=== PATIENT | female | born 1990 | race Caucasian/White ===

== ENCOUNTER 2016-08-30 13:41 | Emergency (ER) | payer OTHER ==
[2016-08-30 14:06] VITALS: BP 107/65
--- NOTE | 2016-08-30 17:08 | ED ---
Lower Extremity - HPI Summary HPI Summary: Patient presents with LLE pain and LLQ pain that began several days ago without injury. She has history of blood clot in her LLE s/p knee surgery in November 2015, and was subsequently found to have a blood clotting disorder that has been managed by a specialist at [facility]. Also, her period was late so she took a test three days ago that was positive. She called her specialist regarding this finding and her pain, and was placed on "emergency Lovenox" 95mg BID. She was referred to the ED for evaluation by this specialist. Her pain is in her left groin and thigh, as well as in her LLQ. She feels her left leg is swollen and she is having pain with ambulation and movement. She denies warm, N/T, SOB or CP. Additionally, she is working with her PCP to establish care with a "high risk" specialist to help navigate possible complication with her bleeding disorder and . - History of Current Complaint Hx Obtained From: Patient Hx Last Menstrual Period: 3 wks ago Mechanism Of Injury: Unknown Onset of Pain: Days - 2-3 Onset/Duration: Still Present Severity Initially: Mild Severity Currently: Severe Pain Intensity: 8 Timing: Constant Location: Is Diffuse - LLQ distally to left groin and thigh Character Of Pain: Dull, Aching Associated Signs And Symptoms: Positive: Swelling Aggravating Factor(s): Standing, Movement Alleviating Factor(s): Nothing Able to Bear Weight: Yes <Kushal Falk - Last Filed: 08/31/16 09:15> <Sapphire Ragland - Last Filed: 08/31/16 21:58> - History of Current Complaint Chief Complaint: EDExtremityLower Stated Complaint: LT LEG PAIN/SWELLING=DX W/DVT Time Seen by Provider: 08/30/16 15:02 - Allergies/Home Medications Allergies/Adverse Reactions: Allergies Allergy/AdvReac Type Severity Reaction Status Date / Time Bee Venom Allergy Unknown Unknown Verified 06/27/12 09:47 Reaction Details monitstat Allergy Severe Swelling Uncoded 06/27/12 09:47 PMH/Surg Hx/FS Hx/Imm Hx Endocrine/Hematology History: Denies: Hx Diabetes, Hx Thyroid Disease Cardiovascular History: Denies: Hx Hypertension, Hx Pacemaker/ICD Respiratory History: Reports: Hx Asthma - exercise induced Denies: Hx Chronic Obstructive Pulmonary Disease (COPD) GI History: Denies: Hx Ulcer Musculoskeletal History: Reports: Hx Orthopedic Injury Sensory History: Reports: Hx Contacts or Glasses Denies: Hx Hearing Aid Opthamlomology History: Reports: Hx Contacts or Glasses Psychiatric History: Reports: Hx Anxiety Denies: Hx Panic Disorder - Surgical History Surgery Procedure, Year, and Place: LEFT KNEE arthroscopic surgery; torn ACL repair- LEFT Hx Anesthesia Reactions: No Infectious Disease History: No Infectious Disease History: Denies: Hx Hepatitis, Hx Human Immunodeficiency Virus (HIV), Traveled Outside the [place] in Last 30 Days - Family History Known Family History: Positive: None - Social History Occupation: Employed Full-time Lives: With Family Alcohol Use: Occasionally Substance Use Type: Reports: None Smoking Status (MU): Never Smoked Tobacco <Kushal Falk - Last Filed: 08/31/16 09:15> Review of Systems Negative: Fever Negative: Chest Pain Negative: Shortness Of Breath Positive: Abdominal Pain - LLQ. Negative: Vomiting, Diarrhea, Nausea Positive: Edema - mild LLE. Negative: Arthralgia, Myalgia, Decreased ROM Negative: Weakness, Paresthesia, Numbness All Other Systems Reviewed And Are Negative: Yes <Kushal Falk - Last Filed: 08/31/16 09:15> Physical Exam Triage Information Reviewed: Yes Vital Signs On Initial Exam: Initial Vitals Temp Pulse Resp BP Pulse Ox 98.8 F 80 18 107/65 100 08/30/16 13:59 08/30/16 13:59 08/30/16 13:59 08/30/16 13:59 08/30/16 13:59 Vital Signs Reviewed: Yes Appearance: Positive: Well-Appearing, Pain Distress, Obese Skin: Positive: Warm, Skin Color Reflects Adequate Perfusion, Dry, Soft Head/Face: Positive: Normal Head/Face Inspection Eyes: Positive: EOMI, TIARRA, Conjunctiva Clear ENT: Positive: Hearing grossly normal Neck: Positive: Supple, Nontender, No Lymphadenopathy Respiratory/Lung Sounds: Positive: Clear to Auscultation, Breath Sounds Present Cardiovascular: Positive: RRR Abdomen Description: Positive: Soft. Negative: Nontender - mild LLQ pain to deep palpation, CVA Tenderness (R), CVA Tenderness (L), Distended, Guarding, Hepatomegaly, McBurney's Point Tenderness, Pulsatile Mass, Splenomegaly Bowel Sounds: Positive: Present Musculoskeletal: Positive: Strength/ROM Intact, Edema Left - mild LLE; DP, PT and femoral pulses equal and present bilaterally in RLE and LLE. Negative: Pain @, Miriam Sign Left, Miriam Sign Right, Edema Right Neurological: Positive: Sensory/Motor Intact, Alert, Oriented to Person Place, Time, NV Bundle Intact Distally, Normal Gait Psychiatric: Positive: Affect/Mood Appropriate AVPU Assessment: Alert <Kushal Falk - Last Filed: 08/31/16 09:15> Vital Signs On Initial Exam: Initial Vitals Temp Pulse Resp BP Pulse Ox 98.8 F 80 18 107/65 100 08/30/16 13:59 08/30/16 13:59 08/30/16 13:59 08/30/16 13:59 08/30/16 13:59 <Sapphire Ragland - Last Filed: 08/31/16 21:58> Diagnostics - Vital Signs Vital Signs Temp Pulse Resp BP Pulse Ox 08/30/16 13:59 98.8 F 80 18 107/65 100 - Ultrasound No standard instances Ultrasound Interpretation: No Acute Changes Ultrasound Interpretation Completed By: Radiologist - Transvaginal: negative; Bilateral LE: left positive for DVT; right negative for DVT <Kushal Falk - Last Filed: 08/31/16 09:15> - Vital Signs Vital Signs Temp Pulse Resp BP Pulse Ox 08/30/16 19:19 99.3 F 97 16 08/30/16 13:59 98.8 F 80 18 107/65 100 - Laboratory Lab Results: Lab Results 08/30/16 Range/Units 17:48 Beta HCG, Quant 1334.73 mIU/mL Lab Statement: Any lab studies that have been ordered have been reviewed, and results considered in the medical decision making process. <Sapphire Ragland - Last Filed: 08/31/16 21:58> Lower Extremity Course/Dx - Course Course Of Treatment: I discussed the findings with the patient, and since she is already taking Lovenox under the care of her specialist, she will continue with that treatment plan. She is working with her PCP to establish an appointment with a high risk specialist in [place], therefore she will continue with this plan as well. The results of her studies was provided to be transmitted to each of these providers. The patient will return to the ED if symptom worsen, but otherwise proceed with her current plan. - Diagnoses Differential Diagnosis/HQI/PQRI: Positive: Arthritis, Bursitis, Compartment Syndrome, DVT, Infection, Sprain, Strain <Kushal Falk - Last Filed: 08/31/16 09:15> <Sapphire Ragland - Last Filed: 08/31/16 21:58> - Diagnoses Provider Diagnoses: Left leg DVT, Discharge <Kushal Falk - Last Filed: 08/31/16 09:15> <Sapphire Ragland - Last Filed: 08/31/16 21:58> - Discharge Plan Condition: Stable Disposition: HOME Patient Education Materials: (ED), Leg Edema (ED) Referrals: No Primary Care Phys,NOPCP [Primary Care Provider] - Additional Instructions: Please continue working with Iris Adames and your specialist regarding your blood clot and . Return to the emergency department if your symptoms worsen. Attestations User Type: Provider - I was available for consult. This patient was seen by the advanced practice provider. The patient was not presented to, seen by, or examined by me. <Sapphire Ragland - Last Filed: 08/31/16 21:58>
--- NOTE | 2016-08-30 17:33 | RAD ---
INDICATION: History of DVT, recent surgery, left lower extremity swelling and pain. COMPARISON: There are no prior studies available for comparison. TECHNIQUE: Multiple real-time, color flow and Doppler tracings of both lower extremities were obtained. FINDINGS: The right common femoral, femoral, profunda femoral and popliteal veins all demonstrate normal compressibility, augmentation with compression and phasic response with respiration. The left mid and distal femoral and popliteal veins were only partially compressible. There is intraluminal thrombus present partially occluding the veins. The posterior tibial and peroneal veins demonstrate normal compressibility and augmentation with compression. IMPRESSION: FINDINGS CONSISTENT WITH DEEP VENOUS THROMBOSIS IN THE LEFT LOWER EXTREMITY IN THE MID AND DISTAL FEMORAL AND POPLITEAL VEINS.
--- NOTE | 2016-08-30 17:37 | RAD ---
Indication: and left lower quadrant pain. COMPARISON: There are no prior studies available for comparison. TECHNIQUE: Multiple real-time transvaginal images of the pelvis were obtained. FINDINGS: This exam demonstrates a small saclike structure present within the endometrial cavity in the fundal portion of the uterus. No pole, yolk sac or heartbeat is visualized. The mean sac diameter measured 0.33 cm which would correspond to an estimated gestational age of 4 weeks 6 days. The uterus measured 6.1 x 2.8 x 4.5 cm. The right ovary measured 3.8 x 1.7 x 2.2 cm. The left ovary measured 3.4 x 1.8 x 2.3 cm. There is vascular flow within both ovaries. No free intraperitoneal fluid is seen. IMPRESSION: THERE IS A SMALL SACLIKE STRUCTURE PRESENT WITHIN THE ENDOMETRIAL CAVITY. NO POLE, YOLK SAC OR HEARTBEAT IS VISUALIZED. THIS LIKELY REPRESENTS A EARLY INTRAUTERINE ALTHOUGH AN ECTOPIC OR SPONTANEOUS MISCARRIAGE CANNOT BE EXCLUDED. RECOMMEND CORRELATION WITH QUANTITATIVE BETA HCG AND A FOLLOW-UP TRANSVAGINAL PELVIC ULTRASOUND IN 1-2 WEEKS' TIME.
== END 2016-08-30 19:19 | disposition home or self-care (01) ==
LOC: ED 13:41
DX: R10.32 Left lower quadrant pain (principal); R60.9 Edema, unspecified
CPT/HCPCS: 36415; 76817; 84702; 93970; 99282

== ENCOUNTER 2016-09-10 19:43 | Emergency (ER) | payer OTHER ==
[2016-09-10 20:40] VITALS: BP 120/68
--- NOTE | 2016-09-10 21:30 | UC ---
General HPI - HPI Summary HPI Summary: The patient comes in today for: 1. Fever, body aches, lower back pain, chills, sweats, Onset: 2 days ago. Palliative/provocative: Nothing makes the symptoms better except Tylenol which helps reduce her fever. Quality: Aches. Region: Lower backs, legs and arms. Severity: 7/10 Time: Constant. Associated symptoms: She called her CATALOGUE AND SPECIAL PRODUCTS MANAGER who told her to go to the ER or urgent care for evaluation of possible flu. She did not have the flu vaccine. She has a history of a blood clot in her left leg which was her 2nd clot two weeks ago. She was on Xarelto for the first six months. Then aspirin for 2 months (June and July of this year). Then she went on Lovenox starting in August of this year. She is 6 weeks . * - History of Current Complaint Chief Complaint: UCGeneralIllness Stated Complaint: LEG PAIN,SWELLING,FEVER, 6 WEEKS PREG Time Seen by Provider: 09/10/16 21:21 Hx Obtained From: Patient - Allergy/Home Medications Allergies/Adverse Reactions: Allergies Allergy/AdvReac Type Severity Reaction Status Date / Time Bee Venom Allergy Unknown Unknown Verified 06/27/12 09:47 Reaction Details monitstat Allergy Severe Swelling Uncoded 06/27/12 09:47 Home Medications: Home Medications Acetaminophen [Tylenol] 1,000 mg 09/10/16 [History] Enoxaparin(*) [Lovenox(*)] 95 mg BID 09/10/16 [History Confirmed 09/10/16] PMH/Surg Hx/FS Hx/Imm Hx Previously Healthy: No - 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." Endocrine History Of: Denies: Diabetes, Thyroid Disease, Hyperthyroidism, Hypothyroidism, Dyslipidemia Cardiovascular History Of: Denies: Cardiac Disorders, Hypertension, Pacemaker/ICD, Myocardial Infarction , Congestive Heart Failure, Atrial Fibrillation, Deep Vein Thrombosis, Bleeding Disorders Respiratory History Of: Reports: Asthma - exercise induced Denies: COPD, Bronchitis, Pneumonia, Pulmonary Embolism GI/ History Of: Denies: Gastroesophageal Reflux, Ulcer, Gastrointestinal Bleed, Gall Bladder Disease, Kidney Stones, Diverticulitis, Renal Disease, Urosepsis Neurological History Of: Denies: TIA, CVA, Dementia, Seizures, Migraine Psychological History Of: Reports: Anxiety Denies: Depression, Bipolar Disorder, Schizophrenia, Post Traumatic Stress Disorder Cancer History Of: Denies: Lung Cancer, Colorectal Cancer, Breast Cancer, Prostate Cancer Other History Of: Anticoagulant Therapy Negative For: HIV, Hepatitis B, Hepatitis C - Surgical History Surgical History: Yes Surgery Procedure, Year, and Place: LEFT KNEE arthroscopic surgery; torn ACL repair- LEFT - Family History Known Family History: Positive: Cardiac Disease, Hypertension - Social History Occupation: Unemployed Alcohol Use: Occasionally Substance Use Type: None Smoking Status (MU): Never Smoked Tobacco Review of Systems Constitutional: Fever - Temperature at home 102 last taken at 5:30 PM Skin: Negative Eyes: Negative ENT: Negative Respiratory: Negative, Cough - "a little bit" non-productife. Cardiovascular: Negative Gastrointestinal: Diarrhea - She had 3 water brown stools today with no blood. Genitourinary: Negative Musculoskeletal: Negative, Myalgia All Other Systems Reviewed And Are Negative: Yes Physical Exam Triage Information Reviewed: Yes Appearance: Well-Appearing, No Pain Distress, Well-Nourished Vital Signs: Initial Vital Signs Temp 98.6 F 09/10/16 20:32 Pulse 82 09/10/16 20:32 Resp 18 09/10/16 20:32 BP 120/68 09/10/16 20:32 Pulse Ox 99 09/10/16 20:32 Vital Signs Reviewed: Yes Eyes: Positive: Conjunctiva Clear. Negative: Discharge ENT: Positive: Hearing grossly normal. Negative: Pharyngeal erythema, Nasal congestion, Nasal drainage, TM bulging, TM dull, TM red, Tonsillar swelling, Tonsillar exudate Dental: Negative: Gross Decay/Caries @, Dental Fracture @ Neck: Positive: Supple, Nontender, No Lymphadenopathy. Negative: Nuchal Rigidity Respiratory: Positive: Chest non-tender, Lungs clear, No respiratory distress, No accessory muscle use. Negative: Crackles, Rhonchi Cardiovascular: Positive: RRR, No Murmur Abdomen Description: Positive: Nontender, No Organomegaly, Soft. Negative: Distended, Guarding Musculoskeletal: Positive: Strength Intact, ROM Intact Neurological: Positive: Alert, Muscle Tone Normal Psychological: Positive: Age Appropriate Behavior, Consolable Skin: Negative: rashes, breakdown Diagnostics - Laboratory Diagnostic Studies Completed/Ordered: Urine screen: Specific gravity: 1.025. Influenza testing (-) for A and B. Course/Dx - Course Course Of Treatment: Patient was told that her specific gravity is 1.025 and its significant. She was told that because she does not have nausea at this time and has been successful in taking liquids orally, she was encouraged to drink more to get her urine colorless like water. She agreed. She wanted Diclegis for nausea in the AM. - Differential Dx - Multi-Symptom Provider Diagnoses: Viral syndrome (not influenza). Discharge - Discharge Plan Condition: Stable Disposition: HOME Patient Education Materials: Dehydration (ED), Viral Syndrome (ED), ( ED) Referrals: Iris Adames NP [Primary Care Provider] - 1 Week (Please call your CATALOGUE AND SPECIAL PRODUCTS MANAGER provider or primary care provider tomorrow for a follow up evaluation later this week.)
== END 2016-09-10 22:39 | disposition home or self-care (01) ==
LOC: UCEAST 19:43
DX: O26.891 Other specified pregnancy related conditions, first trimester (principal); B34.9 Viral infection, unspecified; Z3A.01 Less than 8 weeks gestation of pregnancy
CPT/HCPCS: 81003; 87502; 99212; G0463

== ENCOUNTER 2017-05-24 09:00 | Day surgery (SDC) | payer OTHER ==
[~2017-05-24 09:00] MED LIST: Buffered Lidocaine 0.9% SYRIN* 5 ML/SYR SYRINGE INTRADERM ONE; Famotidine IV* 10 MG/ML 2 ML (20 mg) IV ONE
[2017-05-24] MEDS ORDERED: ceFAZolin 2 GM PREMIX (*) 2 GM/50 ML BAG IVPB ONE (09:18)
[2017-05-24] MEDS ORDERED: Famotidine IV* 10 MG/ML 2 ML (20 mg) ONE (09:18)
[2017-05-24] MEDS ORDERED: Buffered Lidocaine 0.9% SYRIN* 5 ML/SYR SYRINGE ONE (09:18)
[2017-05-24 09:54] LABS: Hematocrit 40 % (35-47); Hemoglobin 13.3 g/dl (12.0-16.0); Mean Corpuscular HGB Conc 33 g/dl (31-36); Mean Corpuscular Hemoglobin 29 pg (27-31); Mean Corpuscular Volume 85 fL (80-97); Mean Platelet Volume 8 um3 (7.4-10.4); Red Blood Count 4.66 10^6/ul (4.0-5.4); Red Cell Distribution Width 13 % (10.5-15); White Blood Count 6.5 10^3/ul (3.5-10.8)
[2017-05-24] MEDS ORDERED: fentaNYL* 50 MCG/ML 2 ML VIAL (100 MCG VIAL) ONE (10:03)
[2017-05-24] MEDS ORDERED: Midazolam* 1 MG/ML 2 ML VIAL (2 MG) ONE (10:04)
[2017-05-24] MEDS ORDERED: Chloroprocaine 2%* 20 ML VIAL ONE (11:06)
[2017-05-24] MEDS ORDERED: Ondansetron INJ* 2 MG/ML VIAL IV PRN (11:53)
[2017-05-24] MEDS ORDERED: Acetaminophen TAB* 325 MG PO PRN (11:53)
[2017-05-24] MEDS ORDERED: Acetaminophen IV 1GM/100ML * 1,000 MG/100 ML VIAL IVPB ONE (12:15)
[2017-05-24] MEDS ORDERED: Acetaminophen IV 1GM/100ML * 100 ML ONE (12:20)
[2017-05-24] MEDS ORDERED: oxyCODONE TAB* 5 MG TAB PO PRN (12:43)
[2017-05-24] MEDS ORDERED: oxyCODONE TAB* 5 MG TAB ONE (12:51)
[2017-05-24 14:15] VITALS: BP 98/62
--- NOTE | 2017-05-25 02:20 | OP ---
DATE OF OPERATION: 05/24/17 [facility] DATE OF : 88 SURGEON: Vida Pichardo MD DEPLOYMENT TECHNICIAN: LEIGH ANN Chao ANESTHESIOLOGIST: Dr. Anthony. ANESTHESIA: Spinal. PRE-OP DIAGNOSIS: bleeding with possible retained placenta. POST-OP DIAGNOSIS: bleeding with possible retained placenta. OPERATIVE PROCEDURE: Suction, dilatation and curettage with ultrasound guidance. ESTIMATED BLOOD LOSS: 125 cc. URINE OUTPUT: 200 cc. IV FLUIDS: 700 cc lactated Ringers. MATERIALS TO LAB: Intrauterine contents. INDICATIONS: This patient was a 26-year-old 1, para 1, approximately 1 month status post a vaginal delivery in [facility]. The patient reported an uncomplicated vaginal delivery; however, delivery of the placenta was prolonged at nearly 30 minutes. She reports that the placenta was then successfully removed without manual extraction. However, she did have a significant hemorrhage. She did not require a transfusion. The patient reports that her course has been unremarkable. Her bleeding significantly decreased and she did well with very minimal bleeding over the next 3 weeks. However, about 5 days ago, she began having intermittent moderate bright red bleeding. She discontinued her Lovenox which had been prescribed by her bark press operator. When this did not seem to improve the bleeding, she contacted us for evaluation. On ultrasound in the office, an approximately 2 x 2 cm density was seen in the upper fundus with significant vascularity. Considering these findings, decision was made to proceed with a dilatation and curettage to remove the likely source of the prolonged bleeding. She was extensively counseled and a consent was signed. FINDINGS: Small amount of densely adherent material in the upper uterus. The vast majority of this appeared to be removed with the curettage and this was confirmed on ultrasound. COMPLICATIONS: None. DESCRIPTION OF PROCEDURE: The risks, benefits, and alternatives were described to the patient and informed consent was obtained. The patient was taken to the operating room with IV running where spinal anesthesia was induced and found to be adequate. The patient was prepped and draped in a normal sterile fashion in the high lithotomy position in [facility]. A timeout was performed. The bladder was emptied. An ultrasound was performed then to visualize the fundus. A bivalve speculum was placed in the vagina and a single tooth tenaculum was placed on the anterior cervix. The cervix was then gently dilated using Hanks dilator to a size 30. The uterus was then sounded to about 10 cm. With ultrasound guidance, a size 8 curved suction curette was advanced through the cervix and advanced up to the fundus. Suction was activated and a small amount of dark tissue was removed. This did cause some fairly brisk but brief bleeding. The suction catheter was removed. A curettage with a small Banjo curette was then performed again with ultrasound guidance. There was still some dense tissue visible on ultrasound so the curettage was performed and was able to remove the vast majority of this. The remainder of any adherent tissue was left in place rather than cause additional bleeding or potential perforation of the uterus. Bleeding was light at that time. The tenaculum was removed from the cervix with good hemostasis. The speculum was removed and bimanual massage was applied to the uterus. The uterus was firm and there was only light bleeding at that time. The patient tolerated the procedure well. Sponge, lap and needle counts were correct x2. She was then placed in a supine position and brought to the recovery room. [id number]/[facility] #: [id number] ELISSA
== END 2017-05-24 15:12 | disposition home or self-care (01) ==
LOC: OR 09:00
PROVIDERS: ATTEND Obstetrics & Gynecology
DX: O72.2 Delayed and secondary postpartum hemorrhage (principal); Z79.01 Long term (current) use of anticoagulants; Z86.718 Personal history of other venous thrombosis and embolism; O99.53 Diseases of the respiratory system complicating the puerperium; J45.909 Unspecified asthma, uncomplicated; O99.13 Other diseases of the blood and blood-forming organs and certain disorders involving the immune mechanism complicating the puerperium; D68.52 Prothrombin gene mutation; Z88.8 Allergy status to other drugs, medicaments and biological substances
CPT/HCPCS: 36415; 85027; 86850; 86900; 86901; 88305; A9270-GY; J0690; J2250; J2400; J3010

== ENCOUNTER 2017-12-31 15:44 | Inpatient (IN) | payer OTHER ==
[2017-12-31 16:42] LABS: ABS Basophils 0.1 10^3/ul (0-0.2); ABS Eosinophils 0.2 10^3/ul (0-0.6); ABS Lymphocytes 1.4 10^3/ul (1.0-4.8); ABS Monocytes 0.4 10^3/ul (0-0.8); ABS Neutrophils 4.3 10^3/ul (1.5-7.7); ABS Nucleated RBC 0 10^3/ul; Eosinophil % 2.5 % (0-6); Hematocrit 39 % (35-47); Hemoglobin 13.5 g/dl (12.0-16.0); Lymphocyte % 22.2 % (25-47); Mean Corpuscular HGB Conc 35 g/dl (31-36); Mean Corpuscular Hemoglobin 29 pg (27-31); Mean Corpuscular Volume 83 fL (80-97); Mean Platelet Volume 7.2 um3 (7.4-10.4); Nucleated Red Blood Cells % 0.1; Platelet Count 344 10^3/ul (150-450); Red Blood Count 4.72 10^6/ul (4.00-5.40); Red Cell Distribution Width 13 % (10.5-15); White Blood Count 6.4 10^3/ul (3.5-10.8)
[2017-12-31 16:59] LABS: EGFR Non-African American 87.9 (>60)
--- OUTSIDE RECORDS SUMMARY | 2017-12-31 17:09 | XMS REPORT ---
:1990 External Reference #:[id number] Author Organization [facility] Address [address] [place] [address] Phone [phone] Care Team Providers Name Role Phone Meera Carrera MD Primary Care Physician Unavailable Payers Type Date Identification Numbers Payment Provider Subscriber Commercial Policy Number: [id number] Daniel Coleman Group Number: [id number] [address] PayID: [id number] [place] [address] Medigap Part B Expires: 2016 Policy Number: [id number] Medicaid Maritza Coleman Group Name: 1 1 [address] PayID: [id number] [place] [address] Problems Date Description Provider Status Onset: 07/14/2016 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 Maternal GGM also had breast CA General Cancer maternal GF - bone CA Mother Breast Cancer in her 40s Social History Type Date Description Comments Marital Status Single Lives With Male Partner ETOH Use Occasionally consumes wine Smoking Patient has never smoked Daily Caffeine Does Not Consume Caffeine Exercise Type/Frequency Exercises sporadically Allergies, Adverse Reactions, Alerts Date Description Reaction Status Severity Comments 10/28/2015 Monistat active Moderate to Severe burning swelling itching pain 10/28/2015 abreva active pain swelling, stinging 10/28/2015 Bee Sting active Severe Medications Medication Date Status Form Strength Qnty SIG Indications Ordering Provider Dicloxacillin 12/10/ Active Capsules 500mg 28caps 1 po qid O91.23 Meera Sodium 2018 for 1 haresh Carrera M.D. PNV-Dha 07/23/ Active Capsules 27-0.6-0.4 30caps One Christopher 2018 -300mg capsule PRICILLA Lafleur daily([facility] [address] 07-17) Denavir 07/11/ Active Cream 1% 5gm apply Christopher 2017 three PRICILLA Lafleur times daily as needed Epipen 2-Surinder 10/27/ Active Solution 0.3mg/0.3M 1units use as Christopher 2015 Auto-Injec L directed PRICILLA Lafleur t Aspirin Ec / Active Tablets DR 81mg 1 by Unknown 0000 mouth every day One 07/11/ Hx Tablets 30tabs once a Christopher Daily 2018 - day PRICILLA Lafleur 2017 Denavir 02/28/ Hx Cream 1% 5gm apply Iris 2016 - three Varn, N.P. 02/28/ times 2016 daily as needed Valtrex 02/28/ Hx Tablets 1gm 14tabs 2 by Christopher 2016 - mouth and PRICILLA Lafleur 12/09/ repeat in 2018 12 hours Triamcinolone 07/14/ Hx Lotion 0.1% 60ml apply to R21 Christopher Acetonide 2017 - dry skin PRICILLA Lafleur 12/09/ once or 2018 twice daily Azithromycin 03/30/ Hx Tablets 250mg 6tabs two tabs Iris 2015 - day one, Varn, N.P. 04/09/ one daily 2016 till gone Valacyclovir 03/24/ Hx Tablets 1gm 12tabs take two Christopher HCL 2015 - tablets PRICILLA Lafleur 03/28/ by mouth 2015 twice daily x 1 day Kariva 10/27/ Hx Tablets 0.15-0.02/ 28tabs once Christopher 2016 - 0.01 mg daily PRICILLA Lafleur 03/28/ (05/11) 2015 Ibuprofen 10/27/ Hx Tablets 600mg 90tabs by mouth Christopher 2015 - three PRICILLA Lafleur 03/28/ times a 2016 day as needed with food Denavir 10/27/ Hx Cream 1% 5gm apply Christopher 2015 - three PRICILLA Lafleur 03/28/ times 2015 daily as needed Ambien / Hx Tablets 5mg one by Unknown 0000 - mouth at 07/14/ bedtime 2017 as needed Xanax / Hx Tablets 0.5mg 1-2 tabs Unknown 0000 - by mouth 2015 times a day as needed Lidoderm / Hx Patches 5% use as Unknown 0000 - needed on 2016 area. on for 12 hours then off for 12 hours. Percocet / Hx Tablets 7.5-325mg 1-2 by Unknown 0000 - mouth 2015 hours as needed pain Xarelto / Hx Tablets 15mg 1 by Unknown 0000 - mouth 2016 Vital Signs Date Vital Result Comment 12/10/2017 Height 68 inches 5'8" Weight 190.00 lb Heart Rate 70 /min BP Systolic Sitting 106 mmHg BP Diastolic Sitting 73 mmHg Body Temperature 97.7 F O2 % BldC Oximetry 98 % BMI (Body Mass Index) 28.9 kg/m2 07/11/2017 Weight 190.00 lb Heart Rate 77 /min BP Systolic 104 mmHg BP Diastolic 66 mmHg Body Temperature 98.3 F O2 % BldC Oximetry 98 % 07/14/2016 Height 66.75 inches 5'6.75" Weight 208.00 lb Heart Rate 82 /min BP Systolic 100 mmHg BP Diastolic 72 mmHg Body Temperature 98.0 F O2 % BldC Oximetry 98 % BMI (Body Mass Index) 32.8 kg/m2 03/28/2016 Height 66.75 inches 5'6.75" Weight 198.00 lb Heart Rate 89 /min BP Systolic 111 mmHg BP Diastolic 73 mmHg Body Temperature 97.8 F O2 % BldC Oximetry 97 % BMI (Body Mass Index) 31.2 kg/m2 10/28/2015 Height 66.75 inches 5'6.75" Weight 191.75 lb Heart Rate 89 /min BP Systolic Sitting 106 mmHg BP Diastolic Sitting 71 mmHg Body Temperature 98.9 F O2 % BldC Oximetry 98 % BMI (Body Mass Index) 30.3 kg/m2 Results Test Date Test Result H/L Range Note Comp Metabolic Panel 07/13/2017 Sodium 138 mmol/L 133-145 Potassium 4.1 mmol/L 3.5-5.0 Chloride 104 mmol/L 101-111 Co2 Carbon Dioxide 28 mmol/L 22-32 Anion Gap 6 mmol/L 2-11 Glucose 99 mg/dL 70-100 Blood Urea Nitrogen 13 mg/dL 6-24 Creatinine 0.78 mg/dL 0.51-0.95 BUN/Creatinine Ratio 16.7 8-20 Calcium 9.7 mg/dL 8.6-10.3 Total Protein 6.9 g/dL 6.4-8.9 Albumin 4.5 g/dL 3.2-5.2 Globulin 2.4 g/dL 2-4 Albumin/Globulin Ratio 1.9 1-3 Total Bilirubin 0.80 mg/dL 0.2-1.0 Alkaline Phosphatase 63 U/L 34-104 Alt 13 U/L 7-52 Ast 13 U/L 13-39 Egfr Non- 87.9 >60 Egfr 113.1 >60 1 Laboratory test finding 07/13/2017 TSH (Thyroid Stim Horm) 1.96 mcIU/mL 0.34-5.60 Vitamin B12 309 pg/mL 180-914 2 Vitamin D Total 25(Oh) 30.4 ng/mL 20-50 CBC Auto Diff 07/13/2017 White Blood Count 5.7 10^3/uL 3.5-10.8 Red Blood Count 4.62 10^6/uL 4.0-5.4 Hemoglobin 13.2 g/dL 12.0-16.0 Hematocrit 39 % 35-47 Mean Corpuscular Volume 84 fL 80-97 Mean Corpuscular Hemoglobin 29 pg 27-31 Mean Corpuscular HGB Conc 34 g/dL 31-36 Red Cell Distribution Width 13 % 10.5-15 Platelet Count 318 10^3/uL 150-450 Mean Platelet Volume 8 um3 7.4-10.4 Abs Neutrophils 3.5 10^3/uL 1.5-7.7 Abs Lymphocytes 1.5 10^3/uL 1.0-4.8 Abs Monocytes 0.5 10^3/uL 0-0.8 Abs Eosinophils 0.2 10^3/uL 0-0.6 Abs Basophils 0 10^3/uL 0-0.2 Abs Nucleated RBC 0 10^3/uL Granulocyte % 60.6 % 38-83 Lymphocyte % 27.1 % 25-47 Monocyte % 8.1 % 1-9 Eosinophil % 3.3 % 0-6 Basophil % 0.9 % 0-2 Nucleated Red Blood Cells % 0 CBC No Diff 05/24/2017 White Blood Count 6.5 10^3/uL 3.5-10.8 Red Blood Count 4.66 10^6/uL 4.0-5.4 Hemoglobin 13.3 g/dL 12.0-16.0 Hematocrit 40 % 35-47 Mean Corpuscular Volume 85 fL 80-97 Mean Corpuscular Hemoglobin 29 pg 27-31 Mean Corpuscular HGB Conc 33 g/dL 31-36 Red Cell Distribution Width 13 % 10.5-15 Platelet Count 259 10^3/uL 150-450 Mean Platelet Volume 8 um3 7.4-10.4 Type & Screen 05/24/2017 Patient Blood Type A Positive Antibody Screen NEGATIVE Laboratory test finding 09/20/2016 Zika Screen [place], Urine SEE RESULT BELOW 3 Zika Screen [place], Serum SEE RESULT BELOW 4 Poc Urinalysis 09/10/2016 Poc Glucose, Urine Negative Negative Poc Bilirubin, Urine Negative Negative Poc Ketone, Urine Negative Negative Poc Specific [place], Urine >=1.030 1.010-1.030 Poc Blood, Urine Negative Negative Poc pH, Urine 5.5 5-9 Poc Protein, Urine Negative Negative Poc Urobilinogen, Urine 0.2 Negative Poc Nitrite, Urine Negative Negative Poc Leukocytes, Urine Negative Negative Poc Color, Urine Yellow Poc Clarity, Urine Clear 5 Poc Urinalysis 09/10/2016 Poc Glucose, Urine Negative Negative Poc Bilirubin, Urine Negative Negative Poc Ketone, Urine Negative Negative Poc Specific [place], Urine 1.025 1.010-1.030 Poc Blood, Urine Negative Negative Poc pH, Urine 5.5 5-9 Poc Protein, Urine Negative Negative Poc Urobilinogen, Urine 0.2 Negative Poc Nitrite, Urine Negative Negative Poc Leukocytes, Urine Negative Negative Poc Color, Urine Yellow Poc Clarity, Urine Clear 6 Laboratory test finding 03/28/2016 Culture Throat SEE RESULT BELOW 7 1 Because ethnic data is not always readily available, this report includes an eGFR for both -Americans and non- Americans. The National Kidney Disease Education Program (NKDEP) does not endorse the use of the MDRD equation for patients that are not between the ages of 18 and 70, are , have extremes of body size, muscle mass, or nutritional status, or are non- or non-. According to the National Kidney Foundation, irrespective of diagnosis, the stage of the disease is based on the level of kidney function: Stage Description GFR(mL/min/1.73 m(2)) 1 Kidney damage with normal or decreased GFR 90 2 Kidney damage with mild decrease in GFR 60-89 3 Moderate decrease in GFR 30-59 4 Severe decrease in GFR 15-29 5 Kidney failure <15 (or dialysis) 2 Normal Range 180 to 914 Indeterminate Range 145 to 180 Deficient Range <145 3 SEE RESULT BELOW Name: KEITH,MARITZA : [address]: Naye Romeo NP Acct: [id number] Unit: [id number] AGE: 26 Location: LAB Re09/20/16 SEX: F Status: REG REF SPEC: [id number] RACHEL: 09/20/16-1010 [facility] DR: Naye Romeo NP REQ: [id number] RECD: 09/20/162 STATUS: PAM OBREG[facility] DR: Iris Adames NP _ SOURCE: URINE SPDESC: ORDERED: Zika Screen, Ur QUERIES: Has the Health Department been contacted for approval? Y Procedure Result Reported Site Zika Screen INES, Urine Final 09/29/16- 1121 ML Zika virus RNA by real-time RT-PCR*: Not Detected Test Performed by: [address] [address] * ML - MAIN LAB ([facility]) . END OF REPORT * ML=Testing performed at Main Lab DEPARTMENT OF PATHOLOGY, [address] [place] [address] Chacho Bland M.D. Director [facility] # [id number] 4 SEE RESULT BELOW Name: MARITZA COLEMAN : [address]: Naye Romeo NP Acct: [id number] Unit: [id number] AGE: 26 Location: LAB Re09/20/16 SEX: F Status: REG REF SPEC: [id number] RACHEL: 09/20/16-1010 [facility] DR: Naye Romeo NP REQ: [id number] RECD: 09/20/16-1022 STATUS: [facility] DR: Iris Adames DIRECTOR OF RECRUITMENT _ SOURCE: SERUM SPDESC: ORDERED: Zika Screen, S QUERIES: Has the Health Department been contacted for approval? Y Procedure Result Reported Site Zika Screen [facility], Serum Final 09/29/16- 1120 ML Zika IgM ROGER Zika IgM ROGER No serologic evidence of recent Zika virus infection detected. If this specimen was collected < 8 days after symptom onset or < 3 weeks after exposure, negative results should be confirmed by collecting another specimen in 3 weeks. If the specimen was collected > 8 days after symptom onset or > 3 weeks after exposure, negative results suggest the absence of current or recent infection. [id number] collected 09/20/16: Negative The Zika virus ROGER performance characteristics were determined by the CDC and the [facility]. These test results must not be the sole basis for diagnosis, treatment or assessing a patient s health. Please see additional important information about zika virus at: Fact Sheet for Health Care Providers:Interpreting Zika MAC-ROGER Results http://www.cdc.gov/zika/pdfs/aysm-njc-ebeoo-pmkd-ltkwg-qnu-h cp.pdf Fact Sheet for Patients:Understanding Results from the Zika MAC ROGER http://www.cdc.gov/zika/pdfs/qnee-ico-yqmsz-kyzy-iyqgy-cfp-p atients.pdf Fact Sheet for Women:Understanding Results from the CONTINUED ON NEXT PAGE * ML=Testing performed at Main Lab DEPARTMENT OF PATHOLOGY, [address] [place] [address] Chacho Bland M.D. Director [facility] # [id number] Patient: MARITZA COLEMAN [id number] (Continued) Specimen: [id number] Collected: 09/20/16-1009 Received: 09/20/16-1021 (Continued) Procedure Result Reported Site Zika Screen INES, Serum Final (continued) 09/29/16- 1120 Zika MAC-ROGER http://www.cdc.gov/zika/pdfs/uuva-nrn-adiag- cfmn-dweum-jnh--women.pdf Microsphere Immunofluorescence Assay* Results suggest the absence of flavivrus antibodies. If this specimen was collected <8 days after symptom onset or <3 weeks after exposure, negative results should be confirmed by collecting another specimen in 3 weeks. West Nile E Polyvalent Microsphere Immunofluorescence Assay [id number] collected 09/20/16 Result: Nonreactive Test Performed by: [place] [address] * ML - MAIN LAB ([facility]) . END OF REPORT * ML=Testing performed at Main Lab DEPARTMENT OF PATHOLOGY, [address] [place] [address] Chacho Bland M.D. Director [facility] # [id number] 5 Maintenance Job Titles: [id number] ALISON EAGLE 6 Maintenance Job Titles: [id number] CHANCE MEDEROS 7 SEE RESULT BELOW Name: MARITZA COLEMAN DOB: [address]: Iris Adames NP Acct: [id number] Unit: [id number] AGE: 25 Location: [facility] Re03/28/16 SEX: F Status: REG REF SPEC: [id number] RACHEL: 03/28/[address]: Iris Adames NP REQ: [id number] RECD: 03/28/16 STATUS: COMP _ SOURCE: THROAT SPDESC: ORDERED: Throat Culture Procedure Result Reported Site Throat Culture Final 03/30/16- 1213 ML Organism 1 NORMAL JENNIFER Quantity 3+ Throat cultures are clinically indicated to detect the presence of group A strep, arcanobacterium and yeast. In certain cases, predominating organisms will be reported. * ML - MAIN LAB ([facility]) . END OF REPORT * ML=Testing performed at Main Lab DEPARTMENT OF PATHOLOGY, [address] [place] [address] Chacho Bland M.D. Director [facility] # [id number] Procedures Description No Information Encounters Type Date Location Provider CPT E/M Dx Office Visit 07/11/2017 11:40a [facility] [place] [address] R21 Alethea R53.83 O72.2 F41.9 Office Visit 07/14/2016 1:00p [facility] Internal Medicine - Iris Adames N.PRober 24531 R21 Alethea M79.674 Office Visit 03/28/2016 11:40a [facility] Internal Medicine Iris Adames, N.P. [address]396 J06.9 - Alethea J02.9 Office Visit 10/28/2015 1:00p [facility] [place] [address] Z91.030 [place] B00.1 Plan of Care 12/10/2017 - Meera Carrear M.D.O91.23 Nonpurulent mastitis associated with lactationNew Medication:Dicloxacillin Sodium 500 mgNew Xrays:US Breast Complete LeftComments:If symptoms get worse again, start the antibiotic
--- OUTSIDE RECORDS SUMMARY | 2017-12-31 17:09 | XMS REPORT ---
:1990 External Reference #:[id number] Author Organization [employer] Address [address] [place] [address] Phone [phone] Care Team Providers Name Role Phone Meera Carrera MD Primary Care Physician Unavailable Payers Type Date Identification Numbers Payment Provider Subscriber Commercial Policy Number: [id number] [place] Maritza Coleman Group Number: [id number] [address] PayID: [id number] [place] [address] Commercial Policy Number: [id number] [employer] Maritza Coleman PayID: [id number] [address] [place] [address] [facility] Part B Expires: 2016 Policy Number: [id number] Medicaid Maritza Coleman Group Name: 1 1 [address] PayID: [id number] [place] [address] Problems Date Description Provider Status Onset: 07/14/2016 Hereditary coagulation factor deficiency Iris Adames N.Leesa. Active Family History Date Family Member(s) Problem(s) [...] Form Strength Qnty SIG Indications Ordering Provider Doxycycline 12/25/ Active Tablets DR 100mg 28tabs 1 po bid A69.20 Iris Hyclate 2017 x 14 days Varn, N.P. Dicloxacillin 12/10/ Active Capsules 500mg 28caps 1 po qid O91.23 Meera Sodium 2018 for 1 Cotton, week M.D. PNV-Dha 07/23/ Active Capsules 27-0.6-0.4 30caps One Christopher 2018 -300mg capsule PRICILLA Lafleur daily([facility] [address] 07-17) Denavir 07/11/ Active Cream 1% 5gm [...] Hx Tablets 1gm 14tabs 2 by Christopher 2017 - mouth and PRICILLA Lafleur 12/09/ repeat in 2018 12 hours Triamcinolone 07/14/ Hx Lotion 0.1% 60ml apply to R21 Christopher Acetonide 2017 - dry skin PRICILLA Lafleur 12/09/ once or 2018 twice daily Azithromycin 03/30/ Hx Tablets 250mg 6tabs two tabs Iris 2015 - day one, Varn, N.P. 04/09/ one daily 2015 till gone Valacyclovir 03/24/ Hx Tablets 1gm 12tabs take two Christopher HCL 2015 - tablets PRICILLA Lafleur 03/28/ by mouth 2015 twice daily x 1 day Kariva 10/27/ Hx Tablets 0.15-0.02/ 28tabs once Christopher 2015 - 0.01 mg daily PRICILLA Lafleur 03/28/ (21/) 2015 Ibuprofen 10/27/ Hx Tablets 600mg 90tabs by mouth Christopher 2015 - three PRICILLA Lafleur 03/28/ times a 2016 day as needed with food Denavir 05/12/ Hx Cream 1% 5gm apply Christopher 2015 - three PRICILLA Lafleur 2015 daily as needed Ambien 0000/ Hx Tablets 5mg one by Unknown 0000 - mouth at bedtime 2016 as needed Xanax 00/ Hx Tablets 0.5mg 1-2 tabs Unknown 0000 - by mouth 2016 times a day as needed Lidoderm / Hx Patches 5% use as Unknown 0000 - needed on 2015 area. on for 12 hours then off for 12 hours. Percocet 00/ Hx Tablets 7.5-325mg 1-2 by Unknown 0000 - mouth every 6 2015 hours as needed pain Xarelto / Hx Tablets 15mg 1 by Unknown 0000 - mouth every day 2016 Vital Signs Date Vital Result Comment 12/25/2017 Height 68 inches 5'8" Weight 195.00 lb Heart Rate 77 /min BP Systolic 120 mmHg BP Diastolic 77 mmHg Body Temperature 97.7 F O2 % BldC Oximetry 98 % BMI (Body Mass Index) 29.6 kg/m2 12/10/2017 Height 68 inches 5'8" Weight 190.00 [...] Test Date Test Result H/L Range Note Wound Culture/Sensi 12/10/2017 Wound/Misc SEE RESULT BELOW 1 Culture-Gram Stain Comp Metabolic Panel 07/13/2017 Sodium 138 mmol/L [...] Egfr Non- 87.9 >60 Egfr 113.1 >60 2 Laboratory test finding 07/13/2017 TSH (Thyroid Stim Horm) 1.96 mcIU/mL 0.34-5.60 Vitamin B12 309 pg/mL 180-914 3 Vitamin D Total 25(Oh) 30.4 ng/mL 20-50 [...] Zika Screen Nysdoh, Urine SEE RESULT BELOW 4 Zika Screen Nysdoh, Serum SEE RESULT BELOW 5 Poc Urinalysis 09/10/2016 Poc Glucose, Urine Negative Negative Poc Bilirubin, Urine Negative Negative Poc Ketone, Urine Negative Negative Poc Specific [place], Urine >=1.030 1.010-1.030 Poc Blood, Urine Negative Negative Poc pH, Urine 5.5 5-9 Poc Protein, Urine Negative Negative Poc Urobilinogen, Urine 0.2 Negative Poc Nitrite, Urine Negative Negative Poc Leukocytes, Urine Negative Negative Poc Color, Urine Yellow Poc Clarity, Urine Clear 6 Poc Urinalysis 09/10/2016 Poc Glucose, Urine Negative Negative Poc Bilirubin, Urine Negative Negative Poc Ketone, Urine Negative Negative Poc Specific [place], Urine 1.025 1.010-1.030 Poc Blood, Urine Negative Negative Poc pH, Urine 5.5 5-9 Poc Protein, Urine Negative Negative Poc Urobilinogen, Urine 0.2 Negative Poc Nitrite, Urine Negative Negative Poc Leukocytes, Urine Negative Negative Poc Color, Urine Yellow Poc Clarity, Urine Clear 7 Laboratory test finding 03/28/2016 Culture Throat SEE RESULT BELOW 8 1 SEE RESULT BELOW Name: MARITZA COLEMAN : [address]: Meera Carrera MD Acct: [id number] Unit: [id number] AGE: 27 Location: [facility] Re12/10/17 SEX: F Status: REG REF SPEC: [id number] RACHEL: 12/10/17-[address]: Meera Carrera MD REQ: [id number] RECD: 12/10/17 STATUS: COMP _ SOURCE: BREAST,LEF SPDESC: ORDERED: Culture Stain COMMENTS: [id number] Procedure Result Reported Site Wound/Misc Gram Stain Final 12/11/17- 821 ML 2+ Neutrophils No Organisms Seen Wound/Misc Culture Final 12/12/17- 59 ML Organism 1 NORMAL JENNIFER Quantity 1+ * ML - Main Lab . END OF REPORT DEPARTMENT OF PATHOLOGY, [address] [place] [address] Chacho Bland M.D. Director [facility] # [id number] 2 Because ethnic data is not always readily [...] 15-29 5 Kidney failure <15 (or dialysis) 3 Normal Range 180 to 914 Indeterminate Range 145 to 180 Deficient Range <145 4 SEE RESULT BELOW Name: MARITZA COLEMAN : [address]: Naye Romeo NP Acct: [id number] Unit: [id number] AGE: 26 Location: LAB Re09/20/16 SEX: F Status: REG REF SPEC: [id number] RACHEL: 09/20/16-[address]: Naye Romeo NP REQ: [id number] RECD: 09/20/16-1022 STATUS: COMP MARICHUY DR: rIis Adames MEDICAL REVIEW SPECIALIST _ SOURCE: URINE SPDESC: ORDERED: Zika Screen, Ur QUERIES: Has the Health Department been contacted for approval? Y Procedure Result Reported Site Zika Screen INES, Urine Final 09/29/16- 1121 ML Zika virus RNA by real-time RT-PCR*: Not Detected Test Performed by: [address] [address] * ML - MAIN LAB ([facility]) . END OF REPORT * ML=Testing performed at Main Lab DEPARTMENT OF PATHOLOGY, [address] [place] [address] Chacho Bland M.D. Director [facility] # [id number] 5 SEE RESULT BELOW Name: KEITHMARITZA GONSALES : [address]: Naye Romeo NP Acct: [id number] Unit: [id number] AGE: 26 Location: LAB Re09/20/16 SEX: F Status: REG REF SPEC: [id number] RACHEL: 09/20/16-[address]: Naye Romeo NP REQ: [id number] RECD: 09/20/16-2 STATUS: PAM OBREGON DR: Iris Adames NP _ SOURCE: SERUM SPDESC: ORDERED: Zika Screen, S QUERIES: Has the Health Department been contacted for approval? Y Procedure Result Reported Site Zika Screen INES, Serum Final 09/29/16- 1120 ML Zika IgM [...] the absence of current or recent infection. [id number] collected 09/20/16: Negative The Zika virus ROGER performance characteristics were determined by the CDC and the [facility]. These test results must not be the sole basis for diagnosis, treatment or assessing a patient s health. Please see additional important information about zika virus at: Fact Sheet for Health Care Providers:Interpreting Zika MAC-ROGER Results http://www.cdc.gov/zika/pdfs/fkgn-vwl-nqerd-recj-xszhd-rfw-h cp.pdf Fact Sheet for Patients:Understanding Results from the Zika MAC ROGER http://www.cdc.gov/zika/pdfs/gdnf-hax-cihch-znar-cjcbu-lkv-p atients.pdf Fact Sheet for Women:Understanding Results from the CONTINUED ON NEXT PAGE * ML=Testing performed at Main Lab DEPARTMENT OF PATHOLOGY, [address] [place] [address] Chacho Bland M.D. Director [facility] # [id number] Patient: MARITZA COLEMAN [id number] (Continued) Specimen: [id number] Collected: 09/20/16-1009 Received: 09/20/16 (Continued) Procedure Result Reported Site Zika Screen INES, Serum Final (continued) 09/29/16- 1120 Zika MAC-ROGER http://www.cdc.gov/zika/pdfs/zdei-vcj-lvyjj- eeuz-sjivx-sfd--women.pdf Microsphere Immunofluorescence Assay* Results suggest the absence of flavivrus antibodies. If this specimen was collected <8 days after symptom onset or <3 weeks after exposure, negative results should be confirmed by collecting another specimen in 3 weeks. West Nile E Polyvalent Microsphere Immunofluorescence Assay [id number] collected 09/20/16 Result: Nonreactive Test Performed by: [address] [address] * ML - MAIN LAB ([facility]) . END OF REPORT * ML=Testing performed at Main Lab DEPARTMENT OF PATHOLOGY, [address] [place] [address] Chacho Bland M.D. Director [facility] # [id number] 6 Aircraft Inspector: [id number] ALISON EAGLE 7 Aircraft Inspector: [id number] CHANCE MEDEROS 8 SEE RESULT BELOW Name: MARITZA COLEMAN : [address]: Iris Adames NP Acct: [id number] Unit: [id number] AGE: 25 Location: [facility] Re03/28/16 SEX: F Status: REG REF SPEC: [id number] RACHEL: 03/28/16-[address]: Iris Adames NP REQ: [id number] RECD: 03/28/16 STATUS: COMP _ SOURCE: THROAT SPDESC: ORDERED: Throat Culture Procedure Result Reported Site Throat Culture Final 03/30/16- 1213 ML Organism 1 NORMAL JENNIFER Quantity 3+ Throat cultures are clinically indicated to detect the presence of group A strep, arcanobacterium and yeast. In certain cases, predominating organisms will be reported. * ML - MAIN LAB ([facility]) . END OF REPORT * ML=Testing performed at Main Lab DEPARTMENT OF PATHOLOGY, [address] [place] [address] Chacho Bland M.D. Director [facility] # [id number] Procedures Description No Information Encounters Type Date Location Provider [facility] E/M Dx Office Visit 12/10/2017 [facility] Internal Medicine Meera Carrera, [address] O91.23 9:40a - Alethea Aguilar Office Visit 07/11/2017 [facility] [place] [address] R21 11:40a - Alethae R53.83 O72.2 F41.9 Office Visit 07/14/2016 1:00p [facility] Internal Medicine - Iris Adames, N.P. [address]998 R21 Alethea M79.674 Office Visit 03/28/2016 11:40a [facility] Medicine Iris Adames, N.P. [address] J06.9 - Alethea J02.9 Office Visit 10/28/2015 1:00p [facility] [place] [address] Z91.030 Alethea B00.1 Plan of Care 12/25/2017 - Iris Adames, N.P.A69.20 Lyme disease, unspecifiedNew Medication: Doxycycline Hyclate 100 mgComments:You have Lyme Disease. I have sent a prescription to the pharmacy for an antibiotic, Doxycycline 100mg. Take 1 tablet , twice daily, for 14 days. This should clear your infection. Do not take this withdairy products. It is important to stay out of the sun, as you may burn more easily while on this.Ifyour symptoms progress instead of improving, please give the office a call.
--- NOTE | 2017-12-31 19:25 | ED ---
Complex/Multi-Sys Presentation - HPI Summary HPI Summary: This patient is a 27 year old F presenting to ED with chief complaint inability to flex her hands and visual symptoms with turning her head, after recent initiation of amoxicillin for presumptive treatment of Lyme disease after recent "bullseye" erythema migrans rash. The patient states the recent hx started with episodes of possible mastitis that were not treataed with antibiotics. She saw her PCP, [facility], on 12/06/17 because she had L anterior CP and a lump on her left breast. She "nursed it out" on 12/07/17 On the 12/09/17 she had another lump and on the 12/10/17 she was seen at [facility]. On the 12/11/17 she "nursed the lump out". She had an US done of her left breast and it was normal. She was not placed on antibioitics. On 12/19/17 or 12/20/17, an oblong bump on her R anterior thigh came up. She thought it was a "bug bite", although she never saw a definite tick. Her back, arms, and legs started to have pain as time went on. She reports the bug bite lump gets bigger almost an inch every day. Then on the 12/25/17, she was seen and the area on her right thigh showed a red center with red and white rings going outwards from the center. She was seen by [facility] and advised that this was a "bullseye rash", erythema migrans, and she was started on doxycycline presumptively for Lyme disease. She did not take the doxycycline due to concern because she was nursing, so she was prescribed Amoxicillin 500mg tid which she started on . Pt complains that the back of her neck, her upper and lower back and hands bilaterally are painful and her fingers are slightly swollen. She is unable to close her fists, not due to pain, but she just cannot close them voluntarily. She also has black dots in her field of vision with dizziness if she turns head head too far to the side both ways. She has tightness and pain in her bilateral rib regions when she inhales. She reports that she feels weird overall and has tingling sensations. Patient denies fever and SOB. The patient rates the pain 9/ 10 in severity. Symptoms aggravated by nothing. Symptoms alleviated by nothing. With the hand weakness and the visual symptoms, pt was advised by [facility]ames' s office to come to the ED for further evaluation of possible "Lyme meningitis" . Pt has an 8 month old daughter that she is nursing, and she has difficulty holding her infant because of her hand pain and weakness. Pt has no headache, no fever. Home Medications Medication Instructions Recorded Confirmed Type Amoxicillin PO (*) [Amoxicillin 500 mg PO TID 12/31/17 12/31/17 History 500 MG CAP*] Aspirin EC TAB* [Ecotrin EC Low 81 mg PO DAILY 12/31/17 12/31/17 History Dose 81 MG*] EPINEPHrine SYR* [EPINEPHphrine 0.1 mg IM ONCE PRN 12/31/17 12/31/17 History SYR*] Vitamin TAB* 1 tab PO DAILY 12/31/17 12/31/17 History - History Of Current Complaint Chief Complaint: EDGeneral Time Seen by Provider: 12/31/17 18:53 Hx Obtained From: Patient Onset/Duration: Sudden Onset, Lasting Weeks - started on 12/19 or 12/20/17, Still Present Timing: Constant Severity Currently: Severe - 9/10 Severity Initially: Severe - 9/10 Character: Throbbing Aggravating Factor(s): nothing Alleviating Factor(s): nothing Associated Signs And Symptoms: Positive: Dizziness, Other - Her back, arms, and legs started to have pain as time went on. Bullseye rash right ant thigh starting 12/20/17, dx erythema migrans 12/25/17. The back of her neck, her upper and lower back and hands bilaterally are painful and her fingers are slightly swollen. She is unable to close her fists, not due to pain, but she just cannot close them voluntarily. She also has black dots in her field of vision with dizziness if she turns head head too much both ways. She has tightness and pain in her bilateral rib regions when she inhales. She reports that she feels weird overall and has tingling sensations. Patient denies fever and SOB. - Allergies/Home Medications Allergies/Adverse Reactions: Allergies Allergy/AdvReac Type Severity Reaction Status Date / Time bee venom protein (honey bee) Allergy Anaphylatic Verified 12/31/17 18:42 Shock docosanol [From Abreva] Allergy Swelling Verified 12/31/17 18:42 tioconazole Allergy Swelling Verified 12/31/17 18:42 [From Monistat 1 (tioconazole)] Home Medications: Home Medications Aspirin EC TAB* [Ecotrin EC Low Dose 81 MG*] 81 mg PO DAILY 12/31/17 [History Confirmed 12/31/17] EPINEPHrine SYR* [EPINEPHphrine SYR*] 0.1 mg IM ONCE PRN 12/31/17 [History Confirmed 12/31/17] Vitamin TAB* 1 tab PO DAILY 12/31/17 [History Confirmed 12/31/17] PMH/Surg Hx/FS Hx/Imm Hx Previously Healthy: No - 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 Endocrine/Hematology History: Reports: Hx Anticoagulant Therapy - not currently 12/2017 Denies: Hx Diabetes, Hx Thyroid Disease Cardiovascular History: 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 Denies: Hx Congestive Heart Failure, Hx Hypertension, Hx Myocardial Infarction, Hx Pacemaker/ICD Respiratory History: Reports: Hx Asthma - exercise induced Denies: Hx Chronic Obstructive Pulmonary Disease (COPD), Hx Lung Cancer, Hx Pneumonia, Hx Pulmonary Embolism GI History: Denies: Hx Gall Bladder Disease, Hx Gastrointestinal Bleed, Hx Ulcer, Hx Urosepsis History: Denies: Hx Kidney Stones, Hx Renal Disease Sensory History: Reports: Hx Contacts or Glasses - both- will wear glasses day of surgery Denies: Hx Hearing Aid Opthamlomology History: Reports: Hx Contacts or Glasses - both- will wear glasses day of surgery Neurological History: Denies: Hx Dementia, Hx Migraine, Hx Seizures, Hx Transient Ischemic Attacks (TIA) Psychiatric History: Reports: Hx Anxiety - post Denies: Hx Depression, Hx Panic Disorder, Hx Schizophrenia, Hx Bipolar Disorder - Cancer History Hx Chemotherapy: No - Surgical History Surgery Procedure, Year, and Place: LEFT KNEE arthroscopic surgery; torn ACL repair- LEFT x6 Hx Anesthesia Reactions: No - Immunization History Immunizations Up to Date: Yes Infectious Disease History: No Infectious Disease History: Denies: Hx Hepatitis, Hx Human Immunodeficiency Virus (HIV), Traveled Outside the [place] in Last 30 Days - Family History Known Family History: Positive: Cardiac Disease, Hypertension, Other - father with exposure to Agent [place] and neurologic deficits Family History: breast CA - Social History Occupation: Employed Full-time Lives: With Family Alcohol Use: Occasionally Substance Use Type: Reports: None Smoking Status (MU): Never Smoked Tobacco Review of Systems Positive: Other - feels weird overall and has tingling sensations Positive: Other - has black dots in her field of vision if she turns head head too much both ways Positive: Other - tightness and pain in her bilateral rib regions when she inhales Negative: Shortness Of Breath Gastrointestinal: Negative Positive: Other - back of her neck, her upper and lower back and hands bilaterally are painful and her fingers are slightly swollen. She is unable to close her fists, not due to pain, but she just cannot close them voluntarily Positive: Other - resolving bullseye rash right ant thigh, sunburn on her back resolving Neurological: Other - dizziness if she turns head head too much both ways Psychological: Normal All Other Systems Reviewed And Are Negative: Yes Physical Exam - Summary Physical Exam Summary: Appearance: ill appearing, moderate pain distress, well-nourished Skin: Warm, color reflects adequate perfusion, dry, peeling sunburn on her back , minimal erythematous rash on her right ant thigh where pt states large bullseye rash was located across her entire right ant thigh Head: Normal Head/Face inspection, atraumatic Eyes: Conjunctiva clear, PERRL, EOMI ENT: Normal inspection, pharynx clear Neck: Supple, no nodes, no JVD, tender C7-T3 with palpation posterior spines, good chin to chest and side to side movement of neck. No meningismus, but pain with flexion of neck. Respiratory: Lungs clear, normal breath sounds, no respiratory distress, ribs nontender Cardio: RRR, No murmur, pulses normal, brisk capillary refill Abdomen: Soft, nontender Bowel sounds: Present Musculoskeletal: Strength Intact/ROM intact, no calf tenderness, no edema, scar left knee, minimal swelling bilateral hands, unable to flex bilat hands. Psychological: Normal Neuro: Alert, O x 3, CN II-XII intact, Motor: unable to flex bilat hands, can touch index finger to thumb bilat, can extend bilat hands but is painful, sensation intact to pinprick but slightly diminished in bilat fingertips, Gait normal Triage Information Reviewed: Yes Vital Signs On Initial Exam: Initial Vitals Temp Pulse Resp BP Pulse Ox 98.4 F 82 16 128/86 99 12/31/17 15:50 12/31/17 15:50 12/31/17 15:50 12/31/17 15:50 12/31/17 15:50 Vital Signs Reviewed: Yes Diagnostics - Vital Signs Vital Signs Temp Pulse Resp BP Pulse Ox 12/31/17 18:03 87 16 121/83 12/31/17 15:50 98.4 F 82 16 128/86 99 - Laboratory Lab Results: Lab Results 12/31/17 12/31/17 12/31/17 Range/Units 16:26 16:27 16:27 WBC 6.4 (3.5-10.8) 10^3/ul RBC 4.72 (4.00-5.40) 10^6/ul Hgb 13.5 (12.0-16.0) g/dl Hct 39 (35-47) % MCV 83 (80-97) fL MCH 29 (27-31) pg MCHC 35 (31-36) g/dl RDW 13 (10.5-15) % Plt Count 344 (150-450) 10^3/ul MPV 7.2 L (7.4-10.4) um3 Neut % (Auto) 67.5 (38-83) % Lymph % (Auto) 22.2 L (25-47) % [place] % (Auto) 6.8 (0-7) % Eos % (Auto) 2.5 (0-6) % Baso % (Auto) 1.0 (0-2) % Absolute Neuts (auto) 4.3 (1.5-7.7) 10^3/ul Absolute Lymphs (auto) 1.4 (1.0-4.8) 10^3/ul Absolute Monos (auto) 0.4 (0-0.8) 10^3/ul Absolute Eos (auto) 0.2 (0-0.6) 10^3/ul Absolute Basos (auto) 0.1 (0-0.2) 10^3/ul Absolute Nucleated RBC 0 10^3/ul Nucleated RBC % 0.1 Sodium 137 (135-145) mmol/L Potassium 4.1 (3.5-5.0) mmol/L Chloride 102 (101-111) mmol/L Carbon Dioxide 28 (22-32) mmol/L Anion Gap 7 (2-11) mmol/L BUN 14 (6-24) mg/dL Creatinine 0.78 (0.51-0.95) mg/dL Est GFR ( Amer) 106.4 (>60) Est GFR (Non-Af Amer) 87.9 (>60) BUN/Creatinine Ratio 17.9 (8-20) Glucose 77 (70-100) mg/dL Lactic Acid 1.1 (0.5-2.0) mmol/L Calcium 9.5 (8.6-10.3) mg/dL Total Bilirubin 1.00 (0.2-1.0) mg/dL AST 17 (13-39) U/L ALT 27 (7-52) U/L Alkaline Phosphatase 78 (34-104) U/L C-Reactive Protein 5.29 (<8.01) mg/L Total Protein 7.7 (6.4-8.9) g/dL Albumin 4.7 (3.2-5.2) g/dL Globulin 3.0 (2-4) g/dL Albumin/Globulin Ratio 1.6 (1-3) Result Diagrams: 01/03/18 06:10 01/03/18 06:10 Lab Statement: Any lab studies that have been ordered have been reviewed, and results considered in the medical decision making process. - EKG 1617 Cardiac Rate: NL - 75 BPM EKG Rhythm: Sinus Rhythm ST Segment: Non-Specific Ectopy: None EKG Interpretation: nml AV/IV CT, nml QTc, and nml axis - Additional Comments Diagnostic Additional Comments: C-spine MRI reveals 1. No evidence of abnormal spinal cord lesions on noncontrast imaging. 2. Mild left level II lymphadenopathy measuring up to 1.1 x 0.8 cm. ED physician has reviewed this radiology report. Re-Evaluation - Re-Evaluation First Eval Re-Evaluation Time: 20:46 Change: Unchanged Comment: Her neck still hurts most, her hands still cannot clench and are in pain. Her body aches still as well. She declined contrast in MRI because of nursing, but exam was completed without contrast without further discussion with myself or Dr. Brewster. Second Eval Re-Evaluation Time: 22:00 Change: Unchanged Comment: still unable to clench fists. Continues with "black dots" in her visual field with turning her head side to side. Third Eval Re-Evaluation Time: 22:05 Change: Unchanged Comment: No fever. Head hurting is no worse than the pain all over her body. Agrees to admission for further eval. 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 Care was discussed with Dr. Brewster who recommended MRI of C spine with and without contrast to evaluate for demyelinating lesions. Pt declined contrast due to nursing. MRI was unremarkable. Care discussed with Dr. Brewster. Pt with continued weakness of flexion of her hands and scotoma. No need for lumbar puncture at this time as pt has never been febrile and does not have meningismus. Recommends admit for further evaluation and treatment. Assessment/Plan: C-spine MRI reveals 1. No evidence of abnormal spinal cord lesions on noncontrast imaging. 2. Mild left level II lymphadenopathy measuring up to 1.1 x [address] Brewster who suggests the patient be admited. Allergies noted. High blood pressure noted. Pt medications reviewed this visit. Pt agrees to admission after discussion with her . Pt will use automated breast pump while admitted. 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 Brewster at [id number] who suggests the patient be admitted. Consulted Dr. Alfred at 4025 who accepts pt for admission Discharge - Sign-Out/Discharge Documenting (check all that apply): Patient Departure - admit - Discharge Plan Condition: Stable Disposition: ADMITTED TO [facility] - Billing Disposition and Condition Condition: STABLE Disposition: Admitted to [facility]
[2017-12-31 21:02] LABS: INR 1.01 (0.77-1.02)
[2017-12-31] MEDS ORDERED: Ondansetron INJ* 2 MG/ML VIAL IV PRN (23:40)
[2017-12-31] MEDS ORDERED: Docusate CAP* 100 MG PO PRN (23:40)
[2017-12-31] MEDS ORDERED: Acetaminophen TAB* 325 MG PO PRN (23:40)
[2017-12-31] MEDS ORDERED: Senna TAB PO PRN (23:40)
[2017-12-31] MEDS ORDERED: Al Hydrox/Mg Hydrox/Simet LIQ* 30 ML UDC PO PRN (23:40)
[2018-01-01] MEDS: Amoxicillin PO (*) 500 MG CAP PO SCH ×2 (01:25→10:17)
[2018-01-01] MEDS: oxyCODONE/Acetamin 5/325 MG* TAB PO PRN ×3 (01:25→19:55)
--- NOTE | 2018-01-01 04:15 | HP ---
CC: Meera Carrera MD * HISTORY AND PHYSICAL: DATE OF ADMISSION: 12/31/17 TIME OF EVALUATION: 2330 PRIMARY CARE PHYSICIAN: Meera Carrera MD CHIEF COMPLAINT: Neck pain and difficulty with hand movement. HISTORY OF PRESENT ILLNESS: This is a 27-year-old female with a past medical history of clotting disorder who presents to the emergency room with worsening neck pain and difficulty with making fist bilaterally. The patient states back on 12/20/17, she noted to have a bulls eye rash on her right thigh. She was started on amoxicillin for presumed Lyme on 12/26/17. She states for the past 2 to 3 days, she has been unable to make a fist with both her hands. Her fingers and hand are swollen. She cannot get her watch on. She has been having difficulty picking up and taking care of her 8-month-old. She also states that she was building a deck on 12/18/17. She was sore after that with neck pain and low back pain. She thought it was attributed to that, but her pain has not improved. She states when she rotates her head to left and right, she sees spots, minimal headache. No other vision changes. She has got chronic left lower extremity numbness and tingling from her blood clot. She does have sensation changes in her hands. She does have some stress, which she feels is stress incontinence. No other bowel or bladder issues. No fevers, no chills, no chest pain, or shortness of breath. No nausea, vomiting, diarrhea. No abdominal pain. She was initially attributing her symptoms to stress. Her grandfather last week and her child does not sleep well and wakes up every 45 minutes during the night. Otherwise, remaining review of systems negative. In the emergency room, the patient was seen by Dr. Brewster, who ordered an MRI and recommended admission for further evaluation for concern of acute demyelinating disease. PAST MEDICAL HISTORY: 1. History of a DVT in 2016 and in 2017. 2. History of clotting disorder. 3. [id number] prothrombin disorder. 4. Erythema migrans, on amoxicillin. MEDICATIONS: 1. Aspirin 81 mg daily. 2. Amoxicillin 500 mg p.o. t.i.d. 3. vitamin. ALLERGIES: BEE VENOM, ABREVA, TIOCONAZOLE. FAMILY HISTORY: Her father had Agent [place] contamination, has neurologic findings secondary to this. Her mother is alive and healthy. No other neurologic disease in her family. SOCIAL HISTORY: She lives with her fiance. 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 She has an 8-month-old. No smoking or any alcohol use. No illicit drug use. Her healthcare proxy is her fiance. REVIEW OF SYSTEMS: A 14-point review of systems was mentioned in the HPI, otherwise negative. In addition to, the patient denies any trauma to her back or her neck. PHYSICAL EXAMINATION GENERAL: No acute distress. Resting comfortably. VITAL SIGNS: Temp 98.1, pulse rate is 80, respiratory rate is 19, oxygen saturation 97% on room air, blood pressure 106/72. HEENT: Head normocephalic. Pupils are equal and reactive, anicteric. Oropharynx, mucous membranes are moist. NECK: Supple. No lymphadenopathy. RESPIRATORY: Clear to auscultation. No wheezing, rhonchi, or rales. CARDIAC: Regular rate and rhythm. No murmurs, rubs, or gallops. ABDOMEN: Soft, nontender, nondistended. EXTREMITIES: No clubbing, cyanosis, or edema. +1 DP. MUSCULOSKELETAL: She has pain over the spinous process between C5 through T1 region, minimal paraspinal tenderness. NEUROLOGIC: The patient is alert and oriented x3. Cranial nerves II through XII intact. Negative pronator drift. She is unable to make a fist with her hands bilaterally, weakness in her fist, handgrip bilaterally with sensation changes as well and swelling in her fingers and her hands. No bony tenderness. Lower extremities are equal and symmetric, 5/5. DIAGNOSTIC STUDIES/LAB DATA: White count 6.4, hemoglobin 13.5, hematocrit 39, platelets 344. Sed rate is 15. INR is 1.01. D-dimer is less than 200. Sodium 137, potassium 4.1, chloride 102, bicarb 28, BUN 14, creatinine 0.78, CRP 5.29. RADIOGRAPHIC DATA: MRI of the cervical spine without contrast shows no evidence of abnormal spinal cord lesions on noncontrast imaging. Mild left level 2 lymphadenopathy measuring up to 1.1 x 0.8. ASSESSMENT: This is a 27-year-old female with an unremarkable past medical history with the exception of a clotting disorder who presents to the emergency room with worsening neurologic finding in the setting of neck pain as well with the recent diagnosis of Lyme disease. 1. Neck pain and unable to make a handgrip bilaterally. Assessment: The concern is for acute demyelinating disease. Her MRI of her cervical spine is unremarkable. Dr. Brewster evaluated the patient. Discussion was further workup and admission. Plan: We will admit her to [address] [place] [address]. Follow up with Dr. Brewster. It appears that she will likely get an EMG and further imaging studies. We will continue her on neuro checks. 2. Lyme disease. The patient is being appropriately treated for her erythema migrans. I do not suspect her presentation is related to her Lyme Plan: We will continue her on amoxicillin 500 mg t.i.d. 3. History of a clotting disorder. Assessment and Plan: We will continue her on aspirin. Also do not think this is related to her clotting disorder. 4. The patient is still her 8-month-old. We will continue her vitamin and order a breast pump and discussed safety of medications. She states she cannot take any NSAIDs because of her clotting disorder. We discussed doing a low-dose Percocet and pumping just prior to taking it, which she is agreeable to. 5. FEN. [address] her on a regular diet. 6. DVT prophylaxis. The patient scores high risk, placed her on heparin subcu t.i.d. Code status. Full code. PATIENT TIME: Greater than 60 minutes spent doing the history and physical, more than half the time was spent in direct patient contact. [id number]/CPS #: [id number] ELISSA
[2018-01-01] MEDS ORDERED: Heparin VIAL(*) 5000 UNITS/ML VIAL (FIVE THOUSAND) SUBCUT SCH (06:00)
--- NOTE | 2018-01-01 08:02 | RAD ---
Indication: Meningitis with neck pain due to range of motion both hands and fingers. Sagittal T1, T2, STIR, axial T1 and T2-weighted images of the cervical spinal cord was obtained. Patient declined contrast at the present time due to breast-feeding. The vertebral bodies appear normal in height. There is straightening of the normal lordosis. At C2-C3, C3-C4, C4-C5, C5-C6, C6-C7 and C7-T1 no focal protrusion is noted. No central or foraminal stenosis is noted. The spinal cord demonstrates no evidence of abnormal signal. Incidentally noted is a left carotid space lymph node measuring up to 1.1 x 0.8 cm. IMPRESSION: No abnormal masses are noted. No evidence of spinal cord abnormality is noted.
[2018-01-01] MEDS: Aspirin EC TAB* 81 MG TAB.EC PO SCH ×2 (10:17→11:50)
[2018-01-01] MEDS: Prenatal Vitamin TAB PO SCH ×2 (10:18→11:50)
[2018-01-01] MEDS ORDERED: DOXYcycline CAP(*) 100 MG PO SCH (11:00)
[2018-01-01] MEDS: Enoxaparin(*) 40 MG/0.4 ML SYR SUBCUT SCH (11:49)
[2018-01-01] MEDS ORDERED: Gadobenate* (CONTRAST) 529 MG/ML 10 ML SDV IV ONE (12:00)
--- NOTE | 2018-01-01 15:43 | RAD ---
Indication: Concern for carotid artery dissection. MRA of the head was performed utilizing 3-D [id number] technique. Multiple maximum intensity projection images were obtained. The intracranial carotid arteries demonstrates no evidence of tapering. Intracavernous portions of the carotid arteries are unremarkable. There is normal bifurcation into the anterior and middle cerebral arteries bilaterally. No evidence of branch occlusion or aneurysmal dilatation is noted. The visualized vertebral artery demonstrates normal flow without tapering. The basilar artery, posterior cerebral arteries are unremarkable with no evidence of branch occlusion or aneurysmal dilatation. IMPRESSION: Normal intracranial carotid arteries with normal intracranial circulation. No aneurysmal dilatation or branch occlusion is identified.
--- NOTE | 2018-01-01 15:50 | RAD ---
Indication: Pain and weakness evaluate for carotid artery dissection. MRA of the neck performed after intravenous injection of 18 mL of MultiHance. Coronal and sagittal reconstructed images were obtained. The origins of the great vessels are unremarkable. Common carotid artery demonstrates no intimal wall thickening or plaque. No stenosis is noted. The internal carotid arteries in the neck demonstrates normal caliber with no evidence of tapering. The vertebral arteries also demonstrates normal caliber without evidence of tapering. IMPRESSION: No stenosis of the internal carotid arteries were vertebral arteries. No definite evidence of carotid or vertebral artery dissection.
[2018-01-01] MEDS: cefTRIAXone(*) 1 GM in NS 0.9% 50 ML* 50 ML IVPB SCH (16:06)
--- NOTE | 2018-01-01 16:20 | PN ---
Subjective Date of Service: 01/01/18 Interval History: Patient has had no improvement in her hand strength and no improvement in the pain. Complains of continued paresthesias. States her erythema migrans rash has improved. Denies any respiratory complaints. Denies fevers, weight loss. Has been excessively tired but has not been sleeping well related to her . Has persistent spots in her eyes when she looks either direction and with palpation of the carotid pulses. States slight pain when carotid pulses palpated. States increase in pain and paresthesia in left hand when radial pulse palpated. Has persistent pain in RLE with swelling which has been present since previous DVT. Denies CP, SOB, N/V, abdominal pain, diarrhea, F/C, dizziness, or other pain. Family History: Unchanged from Admission Social History: Unchanged from Admission Past Medical History: Unchanged from Admission Objective Active Medications: Acetaminophen (Tylenol Tab*) 650 mg PO Q4H PRN PRN Reason: FEVER/PAIN Al Hydrox/Mg Hydrox/Simethicone (Maalox Plus*) 30 ml PO Q6H PRN PRN Reason: INDIGESTION Aspirin (Aspirin Ec Tab*) 81 mg PO DAILY [facility] Last Admin: 01/01/18 11:50 Dose: 81 mg Docusate Sodium (Colace Cap*) 100 mg PO BID PRN PRN Reason: CONSTIPATION Enoxaparin Sodium (Lovenox(*)) 40 mg SUBCUT Q24H [facility] Last Admin: 01/01/18 11:49 Dose: 40 mg Ceftriaxone Sodium 1 gm/ (Sodium Chloride) 50 mls @ 200 mls/hr IVPB Q24H [facility] Last Admin: 01/01/18 16:06 Dose: 200 mls/hr Multivitamins ( Vitamin Tab*) 1 tab PO DAILY [facility] Last Admin: 01/01/18 11:50 Dose: 1 tab Ondansetron HCl (Zofran Inj*) 4 mg IV Q4H PRN PRN Reason: NAUSEA/VOMITING Oxycodone/Acetaminophen (Percocet 5/325 Tab*) 1 tab PO Q4H PRN PRN Reason: PAIN Last Admin: 01/01/18 06:32 Dose: 1 tab Senna (Senokot Tab*) 1 tab PO BID PRN PRN Reason: CONSTIPATION Vital Signs - 8 hr 01/01/18 01/01/18 01/01/18 11:05 11:49 15:26 Temperature 98.5 F 97.4 F Pulse Rate 93 78 Respiratory 18 18 18 Rate Blood Pressure 106/61 95/45 (mmHg) O2 Sat by Pulse 98 98 Oximetry Oxygen Devices in Use Now: None Appearance: Patient is a 27yo female who appears stated age and is sitting in the bed in NAD. Eyes: No Scleral Icterus, PERRLA Ears/Nose/Mouth/Throat: NL Teeth, Lips, Gums, Clear Oropharnyx, Mucous Membranes Moist Neck: NL Appearance and Movements; NL JVP, Trachea Midline Respiratory: Symmetrical Chest Expansion and Respiratory Effort, Clear to Auscultation Cardiovascular: NL Sounds; No Murmurs; No JVD, RRR, No Edema, - - Pulse diminished in Left radial and right ulnar areas in comparison to contralateral pulses. No Subclavian or carotid bruits. 1+ edema in RLE with slight calf tenderness but no palpable cord. Abdominal: NL Sounds; No Tenderness; No Distention, No Hepatosplenomegaly Lymphatic: No Cervical Adenopathy Extremities: No Clubbing, Cyanosis Skin: No Nodules or Sclerosis, - - Area of erythema in right groin. Neurological: Alert and Oriented x 3, - - Paresthesia, pain and weakness in B/L hands. Otherwise normal neuro exam. 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 - Patient Problems (1) Weakness Current Visit: Yes Status: Acute Code(s): R53.1 - WEAKNESS SNOMED Code(s) : 57188706 Comment: Unknown cause. With paresthesias in bilateral hands. Nerve conduction study normal. Cervical Spinal MRI and MRA of the had and neck normal. Associated with scotomata which are reproducible with pressure on the carotid arteries and turning head to either side. Swelling in B/L hands according to patient. Joints not overtly inflamed. Inflammatory arthritis panel ordered. Vasculitis panel ordered. Neurological, Infectious Disease, and Rhematology consult appreciated. Unable to use hands effectively. (2) Lyme disease Current Visit: Yes Status: Acute Code(s): A69.20 - LYME DISEASE, UNSPECIFIED SNOMED Code(s): 81576747 Comment: Tick Bite with postive Erythema Migrans in groin. Treated intially with amoxicillin. Currently on Ceftriaxone. (3) Clotting disorder Current Visit: No Status: Acute Comment: Prothrombin [id number] mutation. Follows with Vascular Surgery in [facility]. Not indicated for lifelong anticoagulation. 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 (4) DVT prophylaxis Current Visit: Yes Status: Acute Code(s): WUZ5345 - SNOMED Code(s): 963252907 Comment: History of DVT x2. Lovenox daily while in hospital. Does not need lifelong anticoagulation. (5) Full code status Current Visit: Yes Status: Acute Code(s): Z78.9 - OTHER SPECIFIED HEALTH STATUS SNOMED Code(s): 664526695 Comment: Patient insists strongly she does not want to be a vegetable. Status and Disposition: Inpatient.
--- NOTE | 2018-01-01 17:36 | CONS ---
NEUROLOGY CONSULTATION: DATE OF CONSULT: 01/01/18 LOCATION: The patient is an inpatient. REQUESTING PHYSICIAN: Dr. Kim Mahoney. REASON FOR CONSULT: Bilateral hand weakness and sensory changes. HISTORY OF PRESENT ILLNESS: Maritza Coleman is a 27-year-old woman with a history of prothrombin gene mutation as well as extensive left leg DVT and recently diagnosed Lyme disease based on erythema migrans rash who presented to the emergency department for further evaluation of worsening neck pain with difficulty making fists bilaterally. She reports that around the 12/19/17 or , she started to develop a rash on her right upper thigh, which she initially thought was an insect bite, but over the next couple of days, it increased in size considerably and so, she presented to her primary care office for evaluation. It was felt that this rash was consistent with erythema migrans and she was initially prescribed doxycycline, but when she went to pick that up from the pharmacy, pharmacist apparently told her that they were uncomfortable dispensing the medication to her because she is breast-feeding and so instead she was placed on amoxicillin 3 times a day. She thinks she started this around the 12/26/17. Around the same time as when she developed the rash, she began to have some worsening low back pain and upper thoracic pain , which she attributed to helping build a deck at her house. This pain has increased over time and the upper thoracic pain is worse than the low back pain at this point. She states it is a sharp stabbing pain. It is nonradiating. Over the past 3 days or so, she has now developed sensory changes in her hands, which involve all 5 fingers and/or paresthesia. In addition, her fingers feel stiff and she has joint pains in all of the joints of her fingers, but denies pain at her wrists, her elbows, or her shoulders. There is some swelling of her hands, but not to such a degree that she should be greatly restricted in her movement. She has been unable to make a fist, but is able to extend her fingers, though it causes increased pain when she does so and she indicates it feels as though her fingers are like creaky wood. She is having difficulty picking up her 8- month-old daughter and notices that when she nurses her, if she is holding her in a certain position with her left wrist extended, the hand would sometimes go numb even prior to the onset of these current symptoms. On her current antibiotic regimen, the rash on her thigh is improving. She has no symptoms in her lower extremities. She also endorses black spots in the upper field of her vision bilaterally when she rotates her head in either direction. This resolves when her head is in the midline. She denies any recent neck manipulation or trauma. She has no diplopia and no praveen loss of vision. She denies any fevers, though says with the recent hot weather and the sunburn that she has sustained, she might not be aware. She has had no chest pain, shortness of breath. She was initially also attributing some of her symptoms to stress as her grandfather last week. Mostly, she was attributing her back pain to this stress. Dr. Mahoney had spoken with me when the patient was in the emergency department yesterday and I had recommended MRI scan of the cervical spine with and without contrast, though apparently that order was changed to an MRI without contrast, without either of us being alerted to the fact. This was apparently due to some concern for having to pump and dump breast milk for 24 hours after receiving gadolinium. In any case , she had a noncontrast MRI scan of the cervical spine, which did not show any intramedullary lesions concerning for multiple sclerosis. I asked for her to be admitted to the hospital for further evaluation and potentially additional testing. PAST MEDICAL HISTORY: 1. DVT in 2016 and 2017. 2. Clotting disorder related to prothrombin gene mutation. 3. Clinical diagnosis of Lyme disease based on erythema migrans rash, currently on amoxicillin. MEDICATIONS: 1. Aspirin 81 mg daily. 2. Amoxicillin 500 mg 3 times daily. 3. vitamin. ALLERGIES: BEE VENOM, ABREVA, TIOCONAZOLE. FAMILY HISTORY: Her father had [place] exposure and has neurologic difficulty secondary to this. SOCIAL HISTORY: She lives with her fiance. 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 She has an 8-month-old daughter whom she is breast- feeding exclusively. No history of smoking, illicit drug use, or significant alcohol use. REVIEW OF SYSTEMS: As per the HPI, otherwise negative. PHYSICAL EXAM: Vital Signs: Temperature 98.1, blood pressure 104/79, heart rate 65, oxygen saturation 97% on room air. On general examination, she is a well- appearing young woman, in no acute distress. She has resolving erythema on her right upper thigh, which is more towards the medial aspect. She has healing sunburn on her low back bilaterally. She has some tenderness to palpation over the spinous processes from approximately C7 to T3. Her heart is in a regular rate and rhythm with no murmurs, rubs, or gallops. Lungs are clear to auscultation bilaterally. When she rotates her head in either direction, she develops black spots in the upper field of her vision bilaterally. She has similar phenomenon when she extends her neck but no Lhermitte's and no meningismus. She has some mild swelling of the fingers. Tinel's is positive bilaterally over the wrists, negative at the elbows. On neurologic examination, she is fully awake, alert, and oriented. Speech is clear without dysarthria or aphasia. Pupils were equal, round, and reactive from 4 to 2 mm bilaterally. The fundi are benign. Versions are full without nystagmus, but she reports some pain in the left eye when she looks upwards. Visual barron are full to confrontation with no extinction to double simultaneous stimulation. Facial sensation and musculature is full and symmetric. Hearing is intact to finger rub. The palate elevates symmetrically and the tongue is midline. Shoulder shrug is full and symmetric. On motor examination, she has normal bulk and tone in the upper and lower extremities. Strength is full in her lower extremities. In the upper extremities, she has full strength in the deltoids, biceps, triceps, wrist flexion and extension and finger flexion is approximately a grade 3, but seems to be also somewhat limited due to pain, but not entirely. With passive flexion of her fingers, she winces in pain. Finger extension and finger spread is a grade 4 bilaterally. She is not able to oppose her thumb and her pinky on either side. Sensation is diminished to pinprick in the hands globally, especially at the fingertips; intact in the lower extremities. Reflexes are 2+ at the brachioradialis, 1+ biceps, 2+ triceps, 2+ knees and ankles with downgoing toes bilaterally. [id number]-grfy is without ataxia. I did not ambulate her. DIAGNOSTIC STUDIES/LAB DATA: Data: White blood cell count 6.4, hemoglobin 13.5 , hematocrit 39, platelet count 344. Sedimentation rate 15. Coagulation studies show normal INR. D-dimer less than 200. Her CMP was entirely normal. CRP was normal at 5.29. Imaging: I reviewed her MRI of the C-spine, which did not show any evidence for intramedullary lesions. This was a noncontrasted study. There was incidentally noted enlarged lymph node in the left carotid area. IMPRESSION: Maritza Coleman is a 27-year-old woman with a history of hypercoagulability who has recently been diagnosed with Lyme disease on a clinical basis and is being treated with amoxicillin and now comes in with 3 days of bilateral hand pain, sensory changes, and flexion weakness as well as upper back/lower neck pain and low back pain. On examination, she has positive Tinel's, which could indicate some compression in the carpal tunnel area. Her exam otherwise is not really overly suggestive of carpal tunnel given the pain in her joints that she is experiencing as well as the diffuse nature of the sensory changes in her hands, as well as the sudden onset of symptoms. However, some of the joint pains could potentially be related to Lyme disease and I wonder if she could have some swelling in her carpal tunnel, which could be causing some compression there. MRI of her C-spine was reassuring. I spoke with Dr. Serrano who will perform a nerve conduction study today for further evaluation. In addition, I think we should do some additional blood work including MARIKA, rheumatoid factor, lupus anticoagulant, etc. In terms of her vision changes with neck movements, I would like to get some imaging of her neck vasculature and we will get MRA of the neck as well as the head. We will check with Radiology to see this specific type of gadolinium we use in this facility, but in general, gadolinium is considered to be safe in breast- feeding mothers and she does not need to pump and dump after receiving gadolinium. Her ultimate disposition will be pending some of the above testing. Thank you for this consultation. [id number]/[facility] #: [id number] ELISSA
--- NOTE | 2018-01-01 19:06 | CONS ---
CONSULTATION REPORT: DATE OF CONSULT: 01/01/18 REQUESTING PROVIDER: GARRICK Hodgson CONSULTING SERVICE: Infectious Disease. REASON FOR CONSULT: Recent erythema migrans rash, now with hand pain. IMPRESSION: 1. Erythema migrans, diagnosed first week of December, has been on amoxicillin for few days, that rash has resolved. Now with diffuse trace edema in both hands, pain, and stiffness with flexion to point of inability to flex fingers, some tenderness at the MCP and PIP joint. If this is Lyme, it is a very unusual presentation of it. The only thing going forward is the temporary relation to the erythema migrans rash. She thinks that her hand symptoms started before she started the amoxicillin, so it seems less likely a serum sickness-type reaction. 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 2. Some vision change with bending of her neck, also does not seem like Lyme related. 3. Currently . 4. Hypercoagulable state due to [id number] prothrombin mutation. RECOMMENDATIONS: Ceftriaxone 1 g a day while she is here and she can have cefuroxime 500 mg by mouth twice a day for another week for discharge. I explained that I think it is unlikely to be due to Lyme, but in case it is, we will continue Lyme treatment. I also think that if it was Lyme, amoxicillin would be a perfectly fine treatment for it, however because this all happened while she was on it we will try an alternative and see if that makes any difference. I explained to her I think that this would something of a stretch to tile it together. Rheumatology consultation. HISTORY OF PRESENT ILLNESS: This is a 27-year-old woman who is , admitted with bilateral hand pain and stiffness. About 2 weeks ago, she noticed a bug bite on her left medial thigh. There was some redness. It was itchy and painful. Then, it became a round red rash that has totally got bigger and bigger, bigger, it was actually more oblong than round. She was started on amoxicillin as an outpatient and that rash has resolved. More recently, she developed pain, swelling of both hands with difficulty bending her fingers all the way in both hands. 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 She also has difficulty with neck pain recently, no headache , but rotating the head left to right, she is seeing spots in certain visual barron. She has had some tingling in the tips of her fingers. Her workup at this point has included a cervical spine MRI that was unremarkable. She has had head MRI and neck MRI that was unremarkable. She had an EMG that was reported as unremarkable. She denied anything like this in the past other than occasional swelling in her hands from time to time. Her CRP was 5, sed rate was 15. Her rheumatoid factor was less than 10. She had no fevers here. Other than her hands and her neck, she has no other joint symptoms, no new rash relative to 2 weeks ago. She has otherwise felt well in the interim. PAST MEDICAL HISTORY: 1. DVT in 2016 and 2017 after left knee surgery. 2. [id number] prothrombin mutation. 3. Erythema migrans. MEDICATIONS: 1. Tylenol. 2. Docusate. 3. Enoxaparin. 4. vitamin. 5. Ceftriaxone 1 g a day. ALLERGIES: ABREVA, TIOCONAZOLE. FAMILY HISTORY: Father with neurologic syndrome. Mother is alive and well. SOCIAL HISTORY: She lives in [place] with her fiance and their baby. They have a pet dog. Had a trip down to [facility] a few weeks ago. No other travel. 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 No injection drugs. REVIEW OF SYSTEMS: A 14-point review of systems was negative, except as noted above in the history of present illness. PHYSICAL EXAM: Vital Signs: Temperature is 37, heart rate 90, respiratory rate 18, blood pressure 106/61, oxygen saturation 98% on room air. In general, she is awake, not in distress. Neurologic: She is oriented x3. Follows all commands. No decreased sensation to light touch in the upper and lower extremities bilaterally. Neck is supple without mass. Lymph Nodes: There is no cervical, supraclavicular, inguinal, axillary, or epitrochlear lymphadenopathy. Heart has regular rate and rhythm without murmurs, rubs, or gallops. Lungs are clear to auscultation bilaterally. Abdomen: Soft, nontender, nondistended. There are bowel sounds present. Skin: There is no rash or splinter hemorrhages. Musculoskeletal: There is no spine tenderness to palpation or tenderness to palpation of the shoulders, elbows, wrists. The MCP , PIP, and DIP joints bilaterally are mildly tender with diffuse edema throughout both hands and decreased range of motion with finger flexion. There is no hip, knee, ankle, or toe tenderness to palpation either. LABORATORY DATA: White blood cell count 6, hemoglobin 13, platelets 344. Creatinine 0.7. CRP 5. Please see impressions and recommendations as outlined above, which I have discussed with GARRICK Hodgson. [id number]/[facility] #: [id number] ELISSA
--- NOTE | 2018-01-01 19:09 | CONSULT ---
Consult Consult: Ms. Coleman is a 27 year old woman with a recent diagnosis of Lyme disease admitted with diffuse hand pain, stiffness, joint swelling, neck symptoms (with some visual symptoms with turning her neck). I suspect that she may have an underlying reactive process related to her underlying tick born infection or some possible reaction to the breakdown of the organisms. I agree with checking serologies for autoimmune conditions. She does have moderately elevated inflammatory markers. If she remains symptomatic tomorrow, consider a short trial of prednisone beginning at 40mg daily and tapering down rapidly. Will follow; thanks!
--- NOTE | 2018-01-01 23:03 | CONS ---
CONSULTATION REPORT: DATE OF CONSULT: 01/01/18. CONSULTING PHYSICIAN: GARRICK Hodgson. REASON FOR CONSULTATION: Polyarthralgias in the setting of Lyme disease. HISTORY OF PRESENT ILLNESS: Ms. Coleman is a pleasant 27-year-old woman with a history of hypercoagulable condition and a recent clinical diagnosis of Lyme disease. She is currently admitted for complaints of diffuse stiffness, pain, and swelling in her fingers especially her proximal interphalangeal joints and distal interphalangeal joints as well as neck pain and stiffness with dysesthesias and a floater-type sensation when turning her neck to the right. In terms of her more recent history, she was in her usual state of health until about 12/20/17 when she noted a diffuse erythematous rash in her right thigh. There may have been a tick exposure. Initially, it was felt that she would benefit from doxycycline, but because she is nursing and it was felt to be too dangerous and this was therefore switched after consultation with the pharmacist , Hallie Whitehead, to amoxicillin, which she started on 12/26/2017. She tolerated this dose well; however for the past 48 hours prior to admission, she noted the sudden onset of discomfort as well as pain and stiffness with the inability to make a fist on both hands. The fingers and hands subjectively felt swollen and she could not do functional activities with her hands and indeed she has noted increased swelling as the days have gone on. She has had an odd sensation of feeling irregular heart beats in her fingers with a pulsating-type feeling. She has been having difficulty picking things up and taking care of her 9-month-old son. She was building a deck on 12/18/17, but she noted that she had increased soreness and stiffness and while she did have some low back discomfort primarily, she had discomfort in her upper neck region when turning it. She notes that she continues to have symptoms. During her hospital stay, she has had an extensive evaluation including a neurologic evaluation and MRI studies of her brain, which have been negative so far and she has no other vision changes except for that when she turns her neck. She has had minimal headache at this point, but she does have dysesthesias and she does have chronic numbness and tingling in her left lower extremity related to her blood clot. Of note, she also has a history of multiple knee surgeries. She has dysesthesias in her hands as well too. She has also had some stress incontinence, but no other bowel or bladder issues. She denies any fever or chills. She denies shortness of breath. She denies nausea, vomiting or diarrhea. No abdominal pain. She has had no other rash and the rash that was a bull's eye rash on her right inner upper medial thigh has been nearly resolved. She initially attributed her symptoms to stress, but her symptoms have progressed and continued. Of note, her grandfather who had extensive osteoarthritis in his hands and spine recently , and she has been under stress from this. Her father also has had Agent [place] exposure from [place] and has multiple health issues related to this as well as arthritis. It is not clear if there is rheumatoid arthritis in her family. She continues to have symptoms despite being admitted and is currently undergoing evaluation by Neurology as well. Symptoms are worsened that goes on with swelling in her hands, which is worse with no alleviating symptoms and no other factors that help the pain. She would be reluctant to take pain medication in light of her nursing history, which she is continuing to do, indeed she is finding it hard to nurse and she requires an automatic pump to help with breast feeding because she cannot deal with her hands because of the restriction of her hands. 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 She has had no prior history of arthritis, joint pain or swelling. MEDICATIONS: Include: 1. Aspirin 81 mg daily. 2. Amoxicillin 500 mg t.i.d. 3. vitamins. ALLERGIES: Include BEE VENOM, ABREVA, and TIOCONAZOLE. FAMILY HISTORY: As noted above. Her grandfather who recently , had arthritis and her father also had arthritis. Mother is otherwise healthy and alive. No other neurologic diseases in her family or rheumatoid arthritis or lupus in the family. SOCIAL HISTORY: She lives with her fiance. 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 No smoking or any alcohol use. No illicit drug use. REVIEW OF SYSTEMS: General: She has had mild fatigue. On HEENT, no trauma to the eyes or ears. Lymphs: No adenopathy. No lymph node swelling. Lungs: Denies shortness of breath. Cardiac: Denies chest wall pain. Abdomen: Denies abdominal symptoms. Skin: As noted above. Joint: As noted above. She denied deep swelling. Neurologic: As noted above with the seizures when she turns her neck. Endocrine: No glandular swelling. Hematologic: No bruising or bleeding. She does have a history of clotting disorder and lymph node swelling. Psychiatric: Some recent stress. Other 14-point review of systems were otherwise reviewed and were negative. No recent travel history. PHYSICAL EXAM: She is in no acute distress, sitting up, comfortably talking. Vital signs initially were 98.1 with the pulse rate of 80, respiratory rate of 18, O2 sat of 97% on room air with the blood pressure initially of 106/72. In general, she is pleasant, in no acute distress, conversant. HEENT: Normocephalic, atraumatic. Pupils equal, round, and reactive to light and accommodate. Oropharynx was clear. Neck was supple. Lymph: No adenopathy. Endocrine: No glandular swelling. : No CVA tenderness. Respiratory: Clear to auscultation. Lungs: No wheezes, rhonchi or rales. Cardiac: Regular rate and rhythm. No murmurs, rubs or gallops. Abdomen: Soft, nontender, nondistended. Positive bowel sounds. Extremities: No cyanosis, clubbing or edema. 1+ dorsalis pedis pulses. On musculoskeletal, she has minimal tenderness over the lower cervical spine regions C6 through T1 region with no kyphosis with minimal discomfort in this region, but no swelling or warmth. She is able to turn the neck, but there is some mild tenderness in the upper scalene region and the carotid region, but there is no bruits. Also on musculoskeletal exam, there is tenderness of her PIP joints and DIP joints bilaterally. There is slight fullness of the PIP joints, but no definite warmth or swelling and there is only minimal synovitis of the PIP joints 2 through 4 bilaterally, but she is unable to make a fist. She is very tender in all of these joints and she is very restricted. There is no fluctuance. Otherwise on neurologic exam, she is alert and oriented x3. Cranial nerves II through XII are intact. She has no tremor. She has been unable to make a fist. 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 Lower extremities reveal normal pulses and were otherwise symmetric and normal in strength bilateral thighs, and her shoulders had good strength. Skin Exam: She had a resolving erythematous xanthoma on the right medial upper thigh and she had a scar over the left knee from a prior surgery. DIAGNOSTIC STUDIES/LAB DATA: Labs: She had a white count of 6.4, hemoglobin of 13.5, hematocrit of 39, platelets 344,000. Sed rate of 15, INR of 1.01, D- dimer less than 200. Sodium of 137, potassium 4.1, chloride 102, bicarb 28, BUN 14, creatinine 0.78, CRP of 5.29. She did have a neck MRI and then had MRA. The MRA of the head showed normal intracranial carotid arteries with normal circulation. No aneurysmal dilatation. She had otherwise normal internal carotid arteries noted on her MRA of the neck. In terms of her cervical spine MRI, there is no abnormal masses noted. No evidence of spinal cord abnormality noted. Also on labs, she had MPV of 7.2, lymphocytes of 22%. Rheumatoid factor was less than 10. INR of 1.01 with a lactic acid of 1.1. ASSESSMENT: Ms. Coleman is a 27-year-old woman with a recent diagnosis of Lyme disease, now with a possible reactive process involving her joints. She has peripheral pain, discomfort, and minimal swelling with inability to make a complete fist as well as some upper neck symptoms and discomfort with visual symptoms with turning her neck. In terms of her possible etiologies, she may have an underlying reactive type process and consider some sort of breakdown of the spiral sheets, which was triggering an unusual thickness and inflammatory reaction, although her inflammatory markers were not extremely elevated, also consider an evolving connective tissue disorder or rheumatoid arthritis, although her symptoms are very acute on onset, and it will take time as well as serologies and observation of her clinical course to make some sort of definitive diagnosis of her rheumatologic conditions such as rheumatoid arthritis or lupus. I do agree with checking these serologies, however, especially in light of her history of the clotting disorder. Should she remain symptomatic, consider a short trial of steroids including prednisone at 40 mg daily with tapering down. At this point in time, however, we will continue to observe and consider other possibilities as well as checking serologies for autoimmune conditions. TIME SPENT: With the patient was greater than 60 minutes, with greater than 50 % of the time spent in counseling the patient and coordinating care. I discussed this with Dr. Puckett. [id number]/[facility] #: [id number] ELISSA
[2018-01-02 06:09] LABS: ABS Basophils 0.1 10^3/ul (0-0.2); ABS Eosinophils 0.3 10^3/ul (0-0.6); ABS Lymphocytes 1.7 10^3/ul (1.0-4.8); ABS Monocytes 0.4 10^3/ul (0-0.8); ABS Neutrophils 3.2 10^3/ul (1.5-7.7); ABS Nucleated RBC 0 10^3/ul; Eosinophil % 4.5 % (0-6); Hematocrit 37 % (35-47); Hemoglobin 12.8 g/dl (12.0-16.0); Lymphocyte % 30.8 % (25-47); Mean Corpuscular HGB Conc 35 g/dl (31-36); Mean Corpuscular Hemoglobin 29 pg (27-31); Mean Corpuscular Volume 82 fL (80-97); Mean Platelet Volume 7.2 um3 (7.4-10.4); Nucleated Red Blood Cells % 0.2; Platelet Count 294 10^3/ul (150-450); Red Blood Count 4.46 10^6/ul (4.00-5.40); Red Cell Distribution Width 13 % (10.5-15); White Blood Count 5.6 10^3/ul (3.5-10.8)
[2018-01-02 06:29] LABS: EGFR Non-African American 104.8 (>60)
[2018-01-02] MEDS: Prenatal Vitamin TAB PO SCH (09:27)
[2018-01-02] MEDS: Aspirin EC TAB* 81 MG TAB.EC PO SCH (09:27)
[2018-01-02] MEDS: predniSONE TAB* 20 MG PO SCH (12:40)
[2018-01-02] MEDS: Enoxaparin(*) 40 MG/0.4 ML SYR SUBCUT SCH (12:46)
[2018-01-02] MEDS: cefTRIAXone(*) 1 GM in NS 0.9% 50 ML* 50 ML IVPB SCH (15:09)
--- NOTE | 2018-01-02 17:02 | PN ---
Subjective Date of Service: 01/02/18 Interval History: No change in status of hands. Continued paresthesia. Persistent scotomata with head motion. Prednisone started with no improvement. Denies F/C, CP, SOB, N/V, abdominal pain, diarrhea, dysuria, or other pain. Family History: Unchanged from Admission Social History: Unchanged from Admission Past Medical History: Unchanged from Admission Objective Active Medications: Acetaminophen (Tylenol Tab*) 650 mg PO Q4H PRN PRN Reason: FEVER/PAIN Al Hydrox/Mg Hydrox/Simethicone (Maalox Plus*) 30 ml PO Q6H PRN PRN Reason: INDIGESTION Aspirin (Aspirin Ec Tab*) 81 mg PO DAILY [facility] Last Admin: 01/02/18 09:27 Dose: 81 mg Docusate Sodium (Colace Cap*) 100 mg PO BID PRN PRN Reason: CONSTIPATION Enoxaparin Sodium (Lovenox(*)) 40 mg SUBCUT Q24H [facility] Last Admin: 01/02/18 12:46 Dose: 40 mg Ceftriaxone Sodium 1 gm/ (Sodium Chloride) 50 mls @ 200 mls/hr IVPB Q24H [facility] Last Admin: 01/02/18 15:09 Dose: 200 mls/hr Multivitamins ( Vitamin Tab*) 1 tab PO DAILY [facility] Last Admin: 01/02/18 09:27 Dose: 1 tab Ondansetron HCl (Zofran Inj*) 4 mg IV Q4H PRN PRN Reason: NAUSEA/VOMITING Oxycodone/Acetaminophen (Percocet 5/325 Tab*) 1 tab PO Q4H PRN PRN Reason: PAIN Last Admin: 01/01/18 19:55 Dose: 1 tab Prednisone (Deltasone Tab*) 40 mg PO DAILY [facility] Last Admin: 01/02/18 12:40 Dose: 40 mg Senna (Senokot Tab*) 1 tab PO BID PRN PRN Reason: CONSTIPATION Vital Signs - 8 hr 01/02/18 01/02/18 01/02/18 10:47 11:47 15:35 Temperature 98.1 F Pulse Rate 68 95 77 Respiratory 16 16 20 Rate Blood Pressure 97/50 101/66 99/59 (mmHg) O2 Sat by Pulse 98 98 98 Oximetry Oxygen Devices in Use Now: None Appearance: Patient is a 27yo female who appears stated age and is sitting in the bed in NAD. Eyes: No Scleral Icterus, PERRLA Ears/Nose/Mouth/Throat: NL Teeth, Lips, Gums, Clear Oropharnyx, Mucous Membranes Moist Neck: NL Appearance and Movements; NL JVP, Trachea Midline Respiratory: Symmetrical Chest Expansion and Respiratory Effort, Clear to Auscultation Cardiovascular: NL Sounds; No Murmurs; No JVD, RRR, - - 1+ Edema in R Leg. Pulses 1+ in left sided radial and ulnar areas. Abdominal: NL Sounds; No Tenderness; No Distention, No Hepatosplenomegaly Lymphatic: No Cervical Adenopathy Extremities: No Clubbing, Cyanosis Skin: No Nodules or Sclerosis, - - Stable rash in groin. 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 - Patient Problems (1) Weakness Current Visit: Yes Status: Acute Code(s): R53.1 - WEAKNESS SNOMED Code(s) : 93885164 Comment: Unknown cause. With paresthesias in bilateral hands. Nerve conduction study normal. Cervical Spinal MRI and MRA of the had and neck normal. Associated with scotomata which are reproducible with pressure on the carotid arteries and turning head to either side. Swelling in B/L hands according to patient. Joints not overtly inflamed. Inflammatory arthritis panel ordered. Vasculitis panel ordered. Tick borne panel ordered. No positive results yet. Possiblity of Jarish-Herxheimer related reaction to Spirochete . Neurological, Infectious Disease, and Rhematology consult appreciated. Unable to use hands effectively. OT Recommends outpatient PT and no possible assistive devices. (2) Lyme disease Current Visit: Yes Status: Acute Code(s): A69.20 - LYME DISEASE, UNSPECIFIED SNOMED Code(s): 18679056 Comment: Tick Bite with postive Erythema Migrans in groin. Treated intially with amoxicillin. Currently on Ceftriaxone. Cefuroxime for a total of 2 weeks outpatient. Follow with Dr. Lee in 1 week. (3) Clotting disorder Current Visit: No Status: Acute Comment: Prothrombin [id number] mutation. Follows with Vascular Surgery in [facility]. Not indicated for lifelong anticoagulation. 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 (4) DVT prophylaxis Current Visit: Yes Status: Acute Code(s): NUY5229 - SNOMED Code(s): 542297274 Comment: History of DVT x2. Lovenox daily while in hospital. Does not need lifelong anticoagulation. (5) Full code status Current Visit: Yes Status: Acute Code(s): Z78.9 - OTHER SPECIFIED HEALTH STATUS SNOMED Code(s): 853766907 Comment: Patient insists strongly she does not want to be a vegetable. Status and Disposition: Inpatient.
--- NOTE | 2018-01-02 18:36 | RAD ---
INDICATION: Asymmetric upper arm pulse pressure COMPARISON: None TECHNIQUE: Wrist-brachial indices were calculated with Doppler waveform analysis. There is 9 mm Hg pressure pressure discrepancy between the right brachial pressure in the left brachial pressure which is lower than the right. The right wrist-brachial index is calculated at 1.1. Waveform analysis shows normal triphasic waveforms The left ankle-brachial index is calculated at 1.2. Waveform analysis shows normal triphasic waveforms . The pulse volume recordings demonstrate prompt upstroke and normal amplitude. IMPRESSION: NORMAL WRIST BRACHIAL INDICES. SLIGHTLY DECREASED BRACHIAL PRESSURE ON THE LEFT.
--- NOTE | 2018-01-02 18:37 | PN ---
Subjective - Subjective Date of Service: 01/02/18 - chief complaint: dysesthesias, joint pain and swelling Active Problems: Active Problems DVT prophylaxis (Acute) [id number] History of DVT x2. Lovenox daily while in hospital. Does not need lifelong anticoagulation. Full code status (Acute) Z78.9 Patient insists strongly she does not want to be a vegetable. Lyme disease (Acute) A69.20 Tick Bite with postive Erythema Migrans in groin. Treated intially with amoxicillin. Currently on Ceftriaxone. Cefuroxime for a total of 2 weeks outpatient. Follow with Dr. Lee in 1 week. Weakness (Acute) R53.1 Unknown cause. With paresthesias in bilateral hands. Nerve conduction study normal. Cervical Spinal MRI and MRA of the had and neck normal. Associated with scotomata which are reproducible with pressure on the carotid arteries and turning head to either side. Swelling in B/L hands according to patient. Joints not overtly inflamed. Inflammatory arthritis panel ordered. Vasculitis panel ordered. Tick borne panel ordered. No positive results yet. Possiblity of Jarish -Herxheimer related reaction to Spirochete . Neurological, Infectious Disease, and Rhematology consult appreciated. Unable to use hands effectively. OT Recommends outpatient PT and no possible assistive devices. Current Medications: Current Medications Acetaminophen (Tylenol Tab*) 650 mg PO Q4H PRN PRN Reason: FEVER/PAIN Al Hydrox/Mg Hydrox/Simethicone (Maalox Plus*) 30 ml PO Q6H PRN PRN Reason: INDIGESTION Aspirin (Aspirin Ec Tab*) 81 mg PO DAILY [facility] Last Admin: 01/02/18 09:27 Dose: 81 mg Docusate Sodium (Colace Cap*) 100 mg PO BID PRN PRN Reason: CONSTIPATION Enoxaparin Sodium (Lovenox(*)) 40 mg SUBCUT Q24H [facility] Last Admin: 01/02/18 12:46 Dose: 40 mg Ceftriaxone Sodium 1 gm/ (Sodium Chloride) 50 mls @ 200 mls/hr IVPB Q24H [facility] Last Admin: 01/02/18 15:09 Dose: 200 mls/hr Multivitamins ( Vitamin Tab*) 1 tab PO DAILY [facility] Last Admin: 01/02/18 09:27 Dose: 1 tab Ondansetron HCl (Zofran Inj*) 4 mg IV Q4H PRN PRN Reason: NAUSEA/VOMITING Oxycodone/Acetaminophen (Percocet 5/325 Tab*) 1 tab PO Q4H PRN PRN Reason: PAIN Last Admin: 01/01/18 19:55 Dose: 1 tab Prednisone (Deltasone Tab*) 40 mg PO DAILY [facility] Last Admin: 01/02/18 12:40 Dose: 40 mg Senna (Senokot Tab*) 1 tab PO BID PRN PRN Reason: CONSTIPATION - Review of Systems General Comments: Although Ms. Coleman still has significant limitation in range of motion of her hands, she is starting to note some improvement in the mobility of her hands and she noted that with the inflation of a blood pressure cuff done today, she was able to make a fist. She still has some discomfort turning her head to the right and has had visual symptoms with turning her head to the right and her hands remain swollen and she notes that she feels like there is still a heart beat like sensation in the hands. Prednisone was started today. Discussed with Dr. Lee and she is now on Ceftriaxone. There is a concern for possible Downs's palsy, which can be a complication of Lyme Constitutional Symptoms: Yes: Weakness - hands, No: Weight Gain, Weight Loss, Fever, Night Sweats, Unexplained Falls Dermatology: Skin Lesions: Yes - improved rash on thigh HEENT: Yes Normal Eyes: Positive: Normal Thyroid: Positive: Normal Pulmonary: Positive: Normal Cardiology: Positive: Normal Musculoskeletal: Positive: Joint Pain, Joint Stiffness Hematologic/Lymphatic: Positive: Use of Antiplatelet Drugs Neurology: Positive: Numbness\Paresthesiae Psychiatry: Positive: Normal Home Medications: Home Medications Medication Instructions Recorded Confirmed Type Amoxicillin PO (*) [Amoxicillin 500 mg PO TID 12/31/17 12/31/17 History 500 MG CAP*] Aspirin EC TAB* [Ecotrin EC Low 81 mg PO DAILY 12/31/17 12/31/17 History Dose 81 MG*] EPINEPHrine SYR* [EPINEPHphrine 0.1 mg IM ONCE PRN 12/31/17 12/31/17 History SYR*] Vitamin TAB* 1 tab PO DAILY 12/31/17 12/31/17 History Allergies: Allergies Allergy/AdvReac Type Severity Reaction Status Date / Time bee venom protein (honey bee) Allergy Anaphylatic Verified 12/31/17 18:42 Shock docosanol [From Abreva] Allergy Swelling Verified 12/31/17 18:42 tioconazole Allergy Swelling Verified 12/31/17 18:42 [From Monistat 1 (tioconazole)] Objective - Vital Signs Vital Signs: Vital Signs 01/01/18 01/01/18 01/01/18 19:55 19:59 20:00 Temperature 98.6 F Pulse Rate 82 Respiratory 18 20 18 Rate Blood Pressure 98/52 (mmHg) O2 Sat by Pulse 97 Oximetry 01/01/18 01/02/18 01/02/18 23:43 00:59 03:55 Temperature 98.1 F 98.1 F Pulse Rate 67 63 Respiratory 16 16 Rate Blood Pressure 92/49 100/52 96/49 (mmHg) O2 Sat by Pulse 98 98 Oximetry 01/02/18 01/02/18 01/02/18 04:15 07:17 08:00 Temperature 97.4 F Pulse Rate 66 Respiratory 16 16 Rate Blood Pressure 100/52 88/52 94/50 (mmHg) O2 Sat by Pulse 97 Oximetry 01/02/18 01/02/18 01/02/18 10:47 11:20 11:47 Temperature 97.7 F Pulse Rate 68 62 95 Respiratory 16 16 16 Rate Blood Pressure 97/50 111/51 101/66 (mmHg) O2 Sat by Pulse 98 99 98 Oximetry 01/02/18 15:35 Temperature 98.1 F Pulse Rate 77 Respiratory 20 Rate Blood Pressure 99/59 (mmHg) O2 Sat by Pulse 98 Oximetry - Intake and Output Intake and Output: Intake & Output 12/31/17 01/01/18 01/02/18 01/03/18 06:59 06:59 06:59 06:59 Intake Total 360 1839 1030 Output Total 0 Balance 360 1839 1030 Weight 194 lb 3.2 oz 194 lb 3.2 oz Intake: IV Fluids 5 70 ABX - CEFTRIAXONE 50 NS (0.9%) 5 20 Oral 360 1834 960 Output: Urine 0 Other: Estimated Void Medium Medium # Bowel Movements 0 1 Breast Milk Amount 5 # Voids 1 0 ADLs: Meal Record Start: 01/01/18 00: 47 Freq: DAILY@0900,1400,1800 Status: Active Protocol: Created 01/01/18 00:47 System (Rec: 01/01/18 00:47 System [id number]) Document 01/01/18 09:00 [id number] (Rec: 01/01/18 14:35 [id number] MED-C09) Document 01/01/18 14:00 [id number] (Rec: 01/01/18 14:35 [id number] MED-C09) Document 01/01/18 18:00 [id number] (Rec: 01/01/18 18:03 [id number] MED-C09) Document 01/02/18 09:00 [id number] (Rec: 01/02/18 10:33 [id number] MED-C11) Document 01/02/18 18:00 [id number] (Rec: 01/02/18 18:07 [id number] MED-C09) Intake and Output Start: 12/31/17 15: 54 Freq: Status: Active Protocol: Created 12/31/17 15:54 System (Rec: 12/31/17 15:54 System [id number]) Intake and Output Start: 01/01/18 00: 47 Freq: DAILY@0600,1400,2200 Status: Active Protocol: Created 01/01/18 00:47 System (Rec: 01/01/18 00:47 System [id number]) Document 01/01/18 05:12 [id number] (Rec: 01/01/18 05:13 [id number] MED-C09) Document 01/01/18 14:00 [id number] (Rec: 01/01/18 14:35 [id number] MED-C09) Document 01/01/18 21:23 [id number] (Rec: 01/01/18 21:23 [id number] MED-C02) Document 01/02/18 06:00 [id number] (Rec: 01/02/18 06:11 [id number] MED-C09) Document 01/02/18 13:57 [id number] (Rec: 01/02/18 13:58 [id number] MED-C09) - Physical Exam General Physical Exam Comment: No acute distress sitting up Eye Exam: bilateral: PERRLA Head: Yes Normocephalic Thyroid Function: Clinically Euthyroid Lungs and Chest: Yes: Chest Expansion Full, Chest Expansion Symetrica Heart Rate and Rhythm: Regular JVP: Not Elevated [place] Beat: Non Displaced Abdominal Exam: Yes: Soft - Rheumotological System Joints: Joint Swelling - mild swelling of her PIP joints bilaterally 2 through 4 but tenderness and range of motion is improved - Extremities Posterior Tibial Pulse: Bilateral Normal Dorsalis Pedis Pulses: Bilateral Normal Hematology: No Supraclavicular Adenopathy - Neuro Psychiatric: Normal Speech: Normal Results - Results Lab Results: Laboratory Results - last 24 hr 12/31/17 01/01/18 01/01/18 16:27 10:51 19:14 WBC RBC Hgb Hct MCV MCH MCHC RDW Plt Count MPV Neut % (Auto) Lymph % (Auto) [place] % (Auto) Eos % (Auto) Baso % (Auto) Absolute Neuts (auto) Absolute Lymphs (auto) Absolute Monos (auto) Absolute Eos (auto) Absolute Basos (auto) Absolute Nucleated RBC Nucleated RBC % Sodium Potassium Chloride Carbon Dioxide Anion Gap BUN Creatinine Est GFR ( Amer) Est GFR (Non-Af Amer) BUN/Creatinine Ratio Glucose Calcium Total Creatine Kinase 59 C-Reactive Protein Vitamin B12 340 Cycl Citrul Peptide IgG <15.6 SS-A/Ro Antibody <0.2 SS-B/La Antibody <0.2 Lyme Disease Serology Positive 01/02/18 01/02/18 05:56 05:56 WBC 5.6 RBC 4.46 Hgb 12.8 Hct 37 MCV 82 MCH 29 MCHC 35 RDW 13 Plt Count 294 MPV 7.2 L Neut % (Auto) 56.8 Lymph % (Auto) 30.8 [place] % (Auto) 7.0 Eos % (Auto) 4.5 Baso % (Auto) 0.9 Absolute Neuts (auto) 3.2 Absolute Lymphs (auto) 1.7 Absolute Monos (auto) 0.4 Absolute Eos (auto) 0.3 Absolute Basos (auto) 0.1 Absolute Nucleated RBC 0 Nucleated RBC % 0.2 Sodium 139 Potassium 3.9 Chloride 106 Carbon Dioxide 26 Anion Gap 7 BUN 15 Creatinine 0.67 Est GFR ( Amer) 126.8 Est GFR (Non-Af Amer) 104.8 BUN/Creatinine Ratio 22.4 H Glucose 98 Calcium 9.3 Total Creatine Kinase C-Reactive Protein 5.14 Vitamin B12 Cycl Citrul Peptide IgG SS-A/Ro Antibody SS-B/La Antibody Lyme Disease Serology Assessment - Problem List Assessment: Patient Problems DVT prophylaxis (Acute) Full code status (Acute) Lyme disease (Acute) Weakness (Acute) Clotting disorder (Acute) DVT during , antepartum (Acute) Labor, false ([place]-Ramon) (Acute) with 35 completed weeks gestation (Acute) Plan: Ms. Coleman is a 27 year old woman with recent dysesthesias and pain and stiffness in her hands with discomfort on turning her neck with visual symptoms. So far antibodies are negative but we are waiting for her final connective tissue disorder workup to come back. Consider neurologic manifestations of a tick born illness? Reactive arthritis? Consider formal MRI imaging of her brain to screen for demylination. Will defer to neurology. She seems to be making a slight improvement in hand stiffness on a trial of steroids. 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 Will follow Coordination of Care: Yes - Discussed with ID
[2018-01-03] MEDS: oxyCODONE/Acetamin 5/325 MG* TAB PO PRN (03:47)
--- NOTE | 2018-01-03 04:57 | PN ---
PROGRESS NOTE: DATE OF FOLLOWUP: 01/02/18 HISTORY: No acute overnight events. The patient states that her hands feel about the same including the strength though she notes that she got a sharp pain on 2 occasions in her right forearm and her hands suddenly closed on its own and then she was able to open it again. This morning her boss came in and stated that she thought Maritza's right eye looked droopy and then there was concern that she could be developing a Downs's palsy. She now feels quite anxious about this and feels that her right eye feels "goopy" when she blinks. She does not notice any weakness in her face. No trouble drooling. No trouble chewing. She denies any difficulty swallowing. She does not have dry eye. MEDICATIONS: 1. Tylenol 650 q.4 p.r.n. pain. 2. Aspirin 81 mg daily. 3. Ceftriaxone 1 g q.24 hours. 4. Colace 100 mg twice daily. 5. Lovenox 40 mg q.24 hours. 6. vitamin. 7. Percocet 1 tab q.4 p.r.n. pain. 8. Prednisone 40 mg daily started this morning. 9. Senna 1 tab b.i.d. p.r.n. PHYSICAL EXAMINATION: Vital Signs: Temperature 97.4, blood pressure 101/66, heart rate 95, oxygen saturation was 98% on room air. On general examination, she is in no acute distress. Heart is in a regular rate and rhythm with no murmurs, rubs, or gallops. There were no carotid bruits. Lungs are clear to auscultation bilaterally. Her radial pulses to me appeared symmetric. There is no lower extremity edema. She has some tenderness to palpation over her DIPs and PIPs as well as over C8/T1 spinous process. On neurologic exam, she is fully awake, alert, and oriented. Speech is full and without dysarthria or aphasia. Pupils were equal, round, and reactive from 3 to 2 mm bilaterally. Versions are full without nystagmus, but she still has some eye pain when looking up on the left. Phipps are full to confrontation. Her right eyelid is just slightly more ptotic than the left eyelid, but it does not cross the pupil. Her spontaneous eye blinks appear symmetric. There may be very slight asymmetry in forehead wrinkle on the right hand side, but this appears somewhat inconsistent. There is certainly no widening of the palpebral fissure on the right. Cheek puff and smile were full and symmetric. Sensation is intact to light touch in V1 through V3 distributions bilaterally. Hearing is intact to finger rub. The palate elevates symmetrically and the tongue is midline. On motor examination, she has normal tone in the upper and lower extremities. Her strength is full with the exception of her hands where she has grade 3 strength of her finger flexors and grade 4 finger spread and finger extension bilaterally though again this is somewhat masked by pain elicited when she attempts all of these maneuvers. She continues to have dysesthesias with Tinel's at the wrists, but not at the elbows. Her APB bilaterally appears full, but resistance again causes dysesthesias in her hands. Sensation to light touch is intact in the lower extremities, but she has numbness of her fingertips. Reflexes are 2+ brachioradialis, 1+ biceps, 2+ triceps, 2+ knees and ankles with mute toes with Mccurtain's maneuver. Finger-to- nose is without ataxia as is [id number]. I did not ambulate her. DATA: White blood cell count 5.6, hematocrit 37, platelet count 294. Chemistry panel shows sodium, potassium, kidney function to be normal. Her CRP remains normal. Her CK and vitamin B12 are normal. Rheumatoid factor was less than 10. SSA and B antibodies are negative. CCP negative. Other studies including MARIKA, lupus anticoagulant, and ANCA antibodies are pending. Lyme studies are pending. Her MRA of the head and neck was normal without any evidence of vascular malformation or other abnormality, which should cause the vision changes she has been experiencing with neck movements. Her nerve conduction study was normal yesterday. IMPRESSION: This is a 27-year-old woman with a history of prothrombin gene mutation, recently diagnosed with Lyme disease with 3 days of bilateral hand pain, sensory changes and flexion weakness as well as some vision changes with head movements, which involve black spots in the upper phipps of her vision bilaterally. Her imaging studies thus far, which have included cervical spine MRI as well as MRA of the head and neck, have been normal. Her nerve conduction study was normal. She has autoimmune serologies pending. There was some concern today that she may be developing a Downs's palsy. I do not detect this on my exam today, but certainly could be a complication of early Lyme disease and so may not be so alarming on that basis alone. Her antibiotic therapy has been changed at the suggestion of Dr. Kingsley to ceftriaxone, which would have action against any [employer] SPECIALIST involvement as well. However, she does not appear to have meningitis to me and again with the joint pains that she is having in her fingers, I question whether this is more of a rheumatologic issue than neurologic. Dr. Alfonso is involved and his assistance is appreciated. She is being empirically treated with steroids and we will see if this improves her pain and then in turn her hand function. We will continue to follow her closely and Dr. Esquivel has received the sign out on her this evening and Dr. Serrano will follow up on the patient as well. [id number]/[facility] #: [id number] MTDD
[2018-01-03 07:21] LABS: ABS Basophils 0 10^3/ul (0-0.2); ABS Eosinophils 0.1 10^3/ul (0-0.6); ABS Lymphocytes 1.9 10^3/ul (1.0-4.8); ABS Monocytes 0.6 10^3/ul (0-0.8); ABS Neutrophils 6.6 10^3/ul (1.5-7.7); ABS Nucleated RBC 0 10^3/ul; Hematocrit 39 % (35-47); Hemoglobin 13.6 g/dl (12.0-16.0); Lymphocyte % 20.9 % (25-47); Mean Corpuscular HGB Conc 35 g/dl (31-36); Mean Corpuscular Hemoglobin 29 pg (27-31); Mean Corpuscular Volume 82 fL (80-97); Mean Platelet Volume 7.6 um3 (7.4-10.4); Nucleated Red Blood Cells % 0.1; Platelet Count 346 10^3/ul (150-450); Red Blood Count 4.68 10^6/ul (4.00-5.40); Red Cell Distribution Width 13 % (10.5-15); White Blood Count 9.3 10^3/ul (3.5-10.8)
[2018-01-03 07:29] LABS: EGFR Non-African American 108.5 (>60)
[2018-01-03] MEDS: Aspirin EC TAB* 81 MG TAB.EC PO SCH (07:39)
[2018-01-03] MEDS: Prenatal Vitamin TAB PO SCH (07:39)
[2018-01-03] MEDS: predniSONE TAB* 20 MG PO SCH (07:39)
[2018-01-03] MEDS: Enoxaparin(*) 40 MG/0.4 ML SYR SUBCUT SCH (12:26)
--- NOTE | 2018-01-03 12:32 | PN ---
Subjective Date of Service: 01/03/18 Interval History: Patient seen and examined at bedside. Denies fever, chills, shortness of breath , chest discomfort, N/V/D. Pt continues to have bilateral finger weakness (no thumb involvement), neck pain and "black spots" in her vision when she moves her head from side to side and neck in a specific way. These "spots" only appear in 1 eye and the eye towards the side her head is turned. Pt states that she feels like the weakness in her hands is slightly improved, but continues to be an issue. She is concerned about being able to work as she needs to be able to type at home. She is very anxious for discharge as she has an appointment for her daughter later today. Family History: Unchanged from Admission Social History: Unchanged from Admission Past Medical History: Unchanged from Admission Objective Active Medications: Acetaminophen (Tylenol Tab*) 650 mg PO Q4H PRN Reason: FEVER/PAIN Al Hydrox/Mg Hydrox/Simethicone (Maalox Plus*) 30 ml PO Q6H PRN Reason: INDIGESTION Aspirin (Aspirin Ec Tab*) 81 mg PO DAILY [facility] Docusate Sodium (Colace Cap*) 100 mg PO BID PRN Reason: CONSTIPATION Enoxaparin Sodium (Lovenox(*)) 40 mg SUBCUT Q24H [facility] Ceftriaxone Sodium 1 gm/ (Sodium Chloride) 50 mls @ 200 mls/hr IVPB Q24H [facility] Multivitamins ( Vitamin Tab*) 1 tab PO DAILY [facility] Ondansetron HCl (Zofran Inj*) 4 mg IV Q4H PRN Reason: NAUSEA/VOMITING Oxycodone/Acetaminophen (Percocet 5/325 Tab*) 1 tab PO Q4H PRN Reason: PAIN Prednisone (Deltasone Tab*) 40 mg PO DAILY [facility] Senna (Senokot Tab*) 1 tab PO BID PRN Reason: CONSTIPATION Vital Signs - 8 hr 01/03/18 01/03/18 01/03/18 07:26 07:47 08:00 Temperature 97.8 F Pulse Rate 65 Respiratory 17 16 Rate Blood Pressure 91/48 (mmHg) O2 Sat by Pulse 97 Oximetry 01/03/18 11:07 Temperature 98.7 F Pulse Rate 80 Respiratory 16 Rate Blood Pressure 103/54 (mmHg) O2 Sat by Pulse 97 Oximetry Oxygen Devices in Use Now: None Appearance: NAD, sitting up in the bed Ears/Nose/Mouth/Throat: Mucous Membranes Moist Respiratory: Symmetrical Chest Expansion and Respiratory Effort, Clear to Auscultation Cardiovascular: NL Sounds; No Murmurs; No JVD, RRR Abdominal: NL Sounds; No Tenderness; No Distention Neurological: Alert and Oriented x 3, - - Weak hand cone baker machine bilateral, strong bilateral dorsi and plantar flex. Pt with full ROM neck Lines/Tubes/Other Access: Clean, Dry and Intact Peripheral IV - site benign Nutrition: Taking PO's Result Diagrams: 01/03/18 06:10 01/03/18 06:10 Additional Lab and Data: . Microbiology and Other Data: Microbiology 12/31/17 16:26 Aerobic Blood Culture - Preliminary Blood Venous No Growth Day 2 Anaerobic Blood Culture - Preliminary No Growth Day 2 Assess/Plan/Problems-Billing Assessment: Ms. 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 - Patient Problems (1) Weakness Code(s): R53.1 - WEAKNESS SNOMED Code(s): 92427546 Comment: - Unknown cause, presented with paresthesias in bilateral hands - Associated with scotomata which are reproducible with pressure on the carotid arteries and turning head to either side. - Swelling in B/L hands according to patient. Joints not overtly inflamed - Inflammatory arthritis panel, Vasculitis panel, and Tick borne panel ordered - Possiblity of Jarish-Herxheimer related reaction to Spirochete - Nerve conduction study normal - Cervical Spinal MRI and MRA of the had and neck normal - Will check MRI of brain today - Neurological, Infectious Disease, and Rhematology consult appreciated - Unable to use hands effectively. OT Recommends outpatient PT with a hand specialist (2) Lyme disease Code(s): A69.20 - LYME DISEASE, UNSPECIFIED SNOMED Code(s): 67530859 Comment: - Tick Bite with postive Erythema Migrans in groin - Treated intially with amoxicillin outpatient - Receiving Ceftriaxone, plan for Cefuroxime x 1 week outpatient - Follow with Dr. 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 Does not need lifelong anticoagulation (5) Full code status Code(s): Z78.9 - OTHER SPECIFIED HEALTH STATUS SNOMED Code(s): 446236692 Comment: - Patient insists strongly she does not want to be a vegetable Status and Disposition: Inpatient. Discharge to home when medically stable, possible later today or in the AM.
[2018-01-03] MEDS: cefTRIAXone(*) 1 GM in NS 0.9% 50 ML* 50 ML IVPB SCH (14:52)
--- NOTE | 2018-01-03 15:22 | PN ---
AMENDED REPORT NOW INCLUDES DATE OF SERVICE - ESIGNED BEFORE ADJUSTMENT NEUROLOGICAL FOLLOWUP NOTE: DATE OF SERVICE: 01/03/18 HISTORY: The patient is being treated for acute Lyme disease, but also with bilateral symptoms in hands including numbness and tingling in all fingers, difficulties flexing her fingers. She has had some issues with lifting her eyebrow on the right as well. She has no other complaints. MEDICATIONS: Include: 1. Prednisone 40 mg daily. 2. Percocet 1 tab q.4 hours p.r.n. 3. Ceftriaxone. 4. Aspirin 81 mg daily. PHYSICAL EXAMINATION: Temperature 98.7, pulse 80, respirations 16, blood pressure 103/54. She is alert and oriented with normal speech and comprehension. Cranial nerves II through XII were intact other than some facial asymmetries. When asked correctly to raise her eyebrows, she raised her left more than her right, but in normal speech, both eyebrows seem to go up symmetrically. When asked to close her eyes, there appeared to be lack of effort. When she spoke, there was no clear facial asymmetry. She had a symmetric blink bilaterally. She had full extraocular movements. Cranial nerves were intact. Discs were sharp. She noted that she had visual black dots in her visual barron under unusual circumstances. When she looked to the right, she had black dots in her right upper quadrant visual field of the right eye. When she looked to the left, she had black dots in her left upper quadrant , but just in her left eye. Indeed when I had her do this with 1 eye closed and then the other, this looked like the symptoms were positionally related, but also fluctuating monocular visual loss. Motor exam revealed normal tone and strength, except her distal finger flexion both hands, there was some weakness, it is unclear whether this was give away or not. Reflexes were 1 and equal. Toes were downgoing. DIAGNOSTIC STUDIES: Her MRA of head and neck was negative. Her MRI scan of her C- spine showed no significant abnormalities here. EMG nerve conduction study was normal. IMPRESSION AND PLAN: I discussed with Miranda Colmenares and Maritza that I thought we were unlikely to find the neurological basis for her visual symptoms or her facial asymmetry, although clearly a Downs's palsy could be secondary to Lyme disease. She is being treated for that at this point. I think her visual symptoms are nonphysiological pattern as well as the Downs's looks unusual, however given her prothrombin gene mutation and her Lyme disease , it would make sense to get a baseline MRI scan to make sure that there are no underlying problems like demyelinating disease or ischemia at this time. I think it is highly unlikely, but it is also possible she would come back with something else. After this is done and is read as normal, then she can go home. I will be glad to see her back in followup. She may have some degree of minor carpal tunnel due to joint swelling from her Lyme disease. [id number]/[facility] #: [id number] ELISSA
[2018-01-03 17:01] VITALS: BP 107/58
--- NOTE | 2018-01-03 17:01 | RAD ---
HISTORY: Bilateral hand weakness COMPARISONS: MRA of the head and neck January 01, 2018 TECHNIQUE: The following sequences were obtained of the head: Sagittal T1-weighted images, axial T2-weighted images, axial FLAIR images, axial susceptibility weighted images, axial T1-weighted images. Additionally, axial diffusion-weighted images were obtained with calculated apparent diffusion coefficients.. FINDINGS: HEMORRHAGE/INFARCT: There is no hemorrhage or acute infarct. MASSES/SHIFT: There is no mass or shift. EXTRA-AXIAL SPACES/MENINGES: There are no extra-axial fluid collections. SULCI AND VENTRICLES: The sulci and ventricles are normal in size and position for the patient's stated age. CEREBRUM: There are no focal parenchymal abnormalities. BRAINSTEM: There are no focal parenchymal abnormalities. CEREBELLUM: There are no focal parenchymal abnormalities. The cerebellar tonsils are normal in size and position. SELLA: The sella is normal. PINEAL: The pineal region is clear. CP ANGLE/TEMPORAL BONES: The labyrinthine structures are grossly normal. VESSELS: Normal flow-voids are noted within the visualized vertebral vasculature. DIFFUSION ABNORMALITIES: There are no diffusion abnormalities. PARANASAL SINUSES/MASTOIDS: The paranasal sinuses are clear. ORBITS: The orbits are unremarkable. BONES AND SOFT TISSUE: No bone or soft tissue abnormalities are noted. IMPRESSION: NORMAL MRI OF THE BRAIN
--- NOTE | 2018-01-04 04:27 | DS ---
CC: Iris Adames NP; Dr. Manuel Kingsley; Dr. Bobby Serrano; Dr. Eric Alfonso. * DISCHARGE SUMMARY: DATE OF ADMISSION: 12/31/17 DATE OF DISCHARGE: 01/03/18 ATTENDING PHYSICIAN: Dr. Hans Segura * (dictated by Linda Ruffin NP). PRIMARY CARE PROVIDERS: Iris Adames NP and Dr. Meera Carrera. PRIMARY DIAGNOSES: 1. 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 2. Neck pain. 3. Lyme disease with erythema migrans. SECONDARY DIAGNOSES: 1. History of clotting disorder. 2. Breast feeding mother. CONSULTATIONS WHILE IN THE HOSPITAL: 1. Dr. Eric Alfonso with Rheumatology. 2. Dr. Manuel Kingsley with Infectious Disease. 3. Dr. Bobby Serrano and Dr. Zehra Brewster with Neurology. STUDIES WHILE IN THE HOSPITAL: 1. Cervical spine MRI on 12/31/17. Radiologist's impression: No abnormal masses are noted. No evidence of spinal cord abnormalities noted. 2. Head MRA on 01/01/18. Radiologist's impression: Normal intracranial carotid arteries with normal intracranial circulation. No aneurysmal dilation or branch occlusion is identified. 3. Neck MRA on 01/01/18. Radiologist's impression: No stenosis of the internal carotid arteries or vertebral arteries. No definite evidence of carotid or vertebral artery dissection. 4. Upper extremity ART/PVR on 01/02/18. Radiologist's impression: Normal wrist brachial indices. Slightly decreased brachial pressure on the left. 5. Brain MRI on 01/03/18. Radiologist's impression: Normal MRI of the brain. DISCHARGE MEDICATIONS: New home medications: 1. Percocet 5/325 one tablet oral every 4 hours as needed for pain. 2. Prednisone 10 mg tablets 30 mg oral for 2 days followed by 20 mg oral for 2 days followed by 10 mg oral for 2 days and then stop. 3. Cefuroxime 500 mg oral twice daily for 7 days. Continued home medications: 1. vitamin. 2. Epinephrine 0.1 mg IM once as needed for allergy symptoms. 3. Aspirin 81 mg oral daily. Discontinued home medications: Amoxicillin. HISTORY OF PRESENT ILLNESS/HOSPITAL COURSE: Ms. Coleman is a 27-year-old female with the past medical history significant for clotting disorder, who is also 8 months and has erythema migrans that she is currently being treated for, who presented to the emergency room with complaints of worsening neck pain and difficulty making a fist bilaterally. The patient noted a bull's eye rash on her right thigh on 12/20/17. She was started on amoxicillin for presumed Lyme disease on 12/26/17. About 2 to 3 days prior to her presentation, she was unable to make a fist with both of her hands. She felt as though her fingers and hands were swollen. She could not get her watch on. She was having difficulty picking up and caring for her 8 month old. The patient reports working on a deck on 12/18/17 prior to her symptoms initially starting and had felt sore afterwards with associated neck pain and low back pain. She feels as though the pain has not improved. She reported seeing spots and having a headache when she rotated her head left and right. She has chronic left lower extremity numbness and tingling secondary to a blood clot. The patient reports being under a lot of stress as her grandfather last week and her child does not sleep well, wakes up every 45 minutes during the night. Due to her symptoms she presented to the emergency room for further evaluation. While in the emergency room, the patient was seen in consultation by Dr. Brewster, who ordered MRA of her neck and brain and recommended admission for further evaluation. While in the hospital, the patient had an essentially negative workup including cervical spine MRI, head and neck MRA, a Doppler, and a brain MRI. The patient did have an EMG showing the possibility of a medial nerve impingement consistent with possible carpal tunnel on the left. The patient continued to have some various neurological complaints including inability to make a fist with her fingers, but she had good thumb strength. The patient reported having black spots when she moved her head from side to side, this only affected the eye on the side she was looking towards. The patient reported being unable to lift her eyebrows but was able to do it spontaneously while talking. For the patient's Lyme disease, she was seen in consultation by Dr. Kingsley. It was recommended to change her amoxicillin to ceftriaxone while she was in the hospital and then transitioned her to a 3rd generation cephalosporin for another week at discharge. The patient was also seen in consultation by Dr. Alfonso with Rheumatology and the patient was placed on a prednisone taper. She felt as though she may have had slightly improvement after being placed on the prednisone. The patient was doing well and anxious for discharge home today. Ms. Coleman is stable for discharge today. Vital signs are as follows: Temperature 98.2, heart rate 80, respiratory rate 16, O2 sat 97% on room air, and blood pressure 107/58. DISCHARGE PLAN: Ms. Coleman will be discharged to home. ACTIVITY: As tolerated. DIET: She will be on a regular diet. In regards to her bilateral hand weakness, the etiology at this time is unclear. She will be continued on a prednisone taper taking 30 mg oral daily for 2 days starting the morning followed by 20 mg oral daily for 2 days, 10 mg oral daily for 2 days, and then stopping. For her Lyme disease, she will be continued on cefuroxime 500 mg oral twice daily for 1 more week. She should follow up with Dr. Kingsley in 1 week. She has been referred to a hand physical therapy specialist. She has been given the phone number to call and set up an appointment for this. She should see Dr. Serrano in 1 to 2 weeks for follow-up and has been asked to call and schedule an appointment. She has been asked to call Dr. Alfonso's office also to schedule an appointment. She has a followup appointment with her primary care provider, Iris Adames on 01/11/18 at 9:50 a.m. The patient has been asked to stay out of work until she is seen by her primary care provider and the physical therapist. When she returns to work, she may need assist in getting assistive devices at work for typing such as dragon. She may just need a work note. In regards to her neck pain, she does not have nuchal rigidity. I do not suspect this represents meningitis and if she continues to have pain, she could be considered for an LP at a later point. She is afebrile and has no leukocytosis. She does not have an elevated CRP. The patient should return to the emergency room for any chest pain, shortness of breath. POINTS FOR FOLLOWUP: Please followup with the patient's Lyme serology. She has a positive Lyme disease serology but the other testing is pending at the time of discharge. This is a summarized report of a complex medical history and hospital stay, for further details, please see the entire medical record. CONDITION ON DISCHARGE: Stable. Reviewed by LINDA RUFFIN, VIVIANE-C 01/05/18 1619 [id number]/[facility] #: [id number] ELISSA
== END 2018-01-03 19:15 | disposition home or self-care (01) | DRG 948 ==
LOC: ED 15:44 → MED 23:40
PROVIDERS: ADMIT Pediatrics; ATTEND Internal Medicine
PROC: 4A01X4Z Measurement of Peripheral Nervous Electrical Activity, External Approach (ICD-10-PCS; principal; 2018-01-01)
DX: R53.1 Weakness (principal); A69.20 Lyme disease, unspecified; D68.52 Prothrombin gene mutation; R20.2 Paresthesia of skin; G56.02 Carpal tunnel syndrome, left upper limb; J45.998 Other asthma; F41.9 Anxiety disorder, unspecified; M54.2 Cervicalgia; A26.0 Cutaneous erysipeloid; H53.459 Other localized visual field defect, unspecified eye; M25.50 Pain in unspecified joint; R20.0 Anesthesia of skin; Z79.52 Long term (current) use of systemic steroids; Z88.8 Allergy status to other drugs, medicaments and biological substances; Z88.1 Allergy status to other antibiotic agents; Z91.030 Bee allergy status; Z86.718 Personal history of other venous thrombosis and embolism; Z82.49 Family history of ischemic heart disease and other diseases of the circulatory system; Z80.3 Family history of malignant neoplasm of breast; Z72.89 Other problems related to lifestyle; Z86.2 Personal history of diseases of the blood and blood-forming organs and certain disorders involving the immune mechanism; Z82.61 Family history of arthritis; Z79.82 Long term (current) use of aspirin
CPT/HCPCS: 36415; 70544; 70549; 70551; 72141; 80048; 80053; 82550; 82607; 83605; 85025; 85379; 85390; 85598; 85610; 85613; 85652; 85670; 85730; 86038; 86140; 86160; 86200; 86225; 86235; 86255; 86431; 86617; 86618; 86666; 86753; 86812; 87040; 93005; 93923; 95885; 95908; 99284; A9270-GY; A9577; J0696; J1644; J1650; J7512

== ENCOUNTER 2018-03-20 16:04 | Emergency (ER) | payer OTHER, MEDICAID ==
--- OUTSIDE RECORDS SUMMARY | 2018-03-20 16:28 | XMS REPORT | Continuity of Care Document ---
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 Iris Adames NP Primary Care Physician Unavailable Payers Type Date Identification Numbers Payment Provider Subscriber Policy Number: [id number] [employer] Maritza Coleman PayID: [id number] [address] [place] [address] Policy Number: [id number] Medicaid [place] Maritza Coleman PayID: [id number] [address] [place] [address] Advance Directives Description No Information Available Problems Description No Information Family History Description No Information Available Social History Type Date Description Comments Sex Unknown ETOH Use Rarely consumes alcohol Tobacco Use Start: Unknown Patient has never smoked Smoking Status Reviewed: 03/20/18 Patient has never smoked Allergies, Adverse Reactions, Alerts Date Description Reaction Status Severity Comments 03/20/2018 Monistat Active 03/20/2018 Abreva Active Medications Medication Date Status Form Strength Qnty SIG Indications Ordering Provider Oxycontin Active Tab ER 12H Unknown 00 Abuse-Det Meloxicam Active Tablets 15mg Unknown 00 Tylenol Active Capsules 325mg Unknown 00 Plaquenil Active Tablets 200mg 1 by mouth Unknown 00 every day for 1 week then 2 by mouth daily ongoing Doxycycline Active Capsules DR 40mg Unknown 00 Immunizations Description No Information Available Vital Signs Date Vital Result Comment 03/20/2018 2:29pm Intraocular Pressure Right Eye 12 mmHg Intraocular Pressure Left Eye 12 mmHg Results Description No Information Available Procedures Date Code Description Status 03/20/2018 82523 Oct, Optic Nerve Completed 03/20/2018 91070 Visual Field Exam Extended, Unilateral Or Bilateral Completed 03/20/2018 38237 Eye Exam New Comprehensive Completed Encounters Description No Information Available Plan of Treatment 03/20/2018 - Zurdo Nguyen, ODH46.12 Retrobulbar neuritis, left eyeFollow up:to ER follow up with visual field once discharged
--- OUTSIDE RECORDS SUMMARY | 2018-03-20 16:29 | XMS REPORT ---
:1990 External Reference #:[id number] Author Organization [employer] Address [address] [place] [address] Phone [phone] Care Team Providers Name Role Phone Meera Carrera MD Primary Care Physician Unavailable Payers Type Date Identification Numbers Payment Provider Subscriber Commercial Policy Number: [id number] [employer] Maritza Keith PayID: [id number] [address] [place] [address] Commercial Policy Number: [id number] Daniel Parker Group Number: [id number] [address] PayID: [id number] [place] [address] Problems Date Description Provider Status Onset: 07/14/2016 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 Maternal GGM also had breast CA General Cancer maternal GF - bone CA, prostate cancer Father Heart Disease Father Diabetes Type II Father Issues r/t agent Levy exposure Mother Breast Cancer in her 40s Siblings 1 Social History Type Date Description Comments Marital [...] Form Strength Qnty SIG Indications Ordering Provider Plaquenil 03/01/ Active Tablets 200mg 60tabs 1 by A69.20 Eric 2018 mouth Naty, every day M.D. for 1 week then 2 by mouth daily ongoing Meloxicam 02/19/ Active Tablets 15mg 30tabs 1 by Iris 2017 mouth Varn, N.P. every day Denavir 07/11/ Active Cream 1% 5gm apply Christopher 2017 three PRICILLA Lafleur times daily as needed Epipen 2-Surinder 10/27/ Active Solution 0.3mg/0.3M 1units use as Christopher 2015 Auto-Injec L directed PRICILLA Lafleur t Aspirin Ec / Active Tablets DR 81mg 1 by Unknown 0000 mouth every day Oxycodone-Aceta / Active Tablets 5-325mg Take 1 Unknown minophen 0000 Tablet By Mouth Every 4 Hours as Needed For Pain Maximum Daily Prednisone 01/08/ Hx Tablets 10mg 90tabs Take one M25.541 Eric 2017 - capsule/t Naty, 02/19/ ab every M.D. 2018 8 hours, decrease to twice daily on 01/21, decrease to 1 daily on 01/27, d/c on 02/08 Doxycycline 12/25/ Hx Tablets DR 100mg 28tabs 1 po bid A69.20 Iris Hyclate 2018 - x 14 days Varn, N.P. 2017 Amoxicillin 12/25/ Hx Tablets 500mg 63tabs 1 tab by Iris 2017 - mouth Varn, N.P. 01/01/ three 2018 times a day x 21 days Dicloxacillin 12/10/ Hx Capsules 500mg 28caps 1 po qid O91.23 Meera Sodium 2017 - for 1 Cotton, 12/17/ week M.D. 2017 PNV-Dha 07/23/ Hx Capsules 27-0.6-0.4 30caps One Christopher 2017 - -300mg capsule PRICILLA Lafleur 02/19/ daily([facility] [place] 2017 [id number] 1-30) One 07/11/ Hx Tablets 30tabs once a [...] two tabs Iris 2015 - day one, Rosangela, N.P. 04/09/ one daily 2015 till gone [...] - three PRICILLA Lafleur 03/28/ times a 2015 day as needed with food Denavir 10/27/ Hx Cream 1% 5gm apply Christopher 2015 - PRICILLA Lafleur 03/28/ times 2015 daily as needed Ambien 00/00/ Hx Tablets 5mg one by Unknown 0000 - mouth at 07/14/ bedtime 2016 as needed Xanax 00/ Hx Tablets 0.5mg 1-2 tabs Unknown 0000 - by mouth 03/28/ three 2015 times a day as needed Lidoderm / Hx Patches 5% use as Unknown 0000 - needed on affected 2016 area. on for 12 hours then off for 12 hours. Percocet /00/ Hx Tablets 7.5-325mg 1-2 by Unknown 0000 - mouth 03/28/ every 6 2015 hours as needed pain Xarelto 00/ Hx Tablets 15mg 1 by Unknown 0000 - mouth every day 2016 Cefuroxime 00/00/ Hx Tablets 250mg Take 2 Unknown Axetil 0000 - Tablets 01/11/ By Mouth 2017 Two Times Daily For 1 Week Prednisone 00/00/ Hx Tablets 10mg Take 3 Unknown 0000 - Tablets 01/11/ By Mouth 2018 Every Day For 2 Days Then Take 2 Tablets By Mo Vital Signs Date Vital Result Comment 03/01/2018 Height 68 inches 5'8" Weight 190.25 lb Heart Rate 76 /min BP Systolic Sitting 90 mmHg BP Diastolic Sitting 62 mmHg Pain Level 7 O2 % BldC Oximetry 98 % BMI (Body Mass Index) 28.9 kg/m2 02/27/2018 Height 68 inches 5'8" Weight 190.00 lb Heart Rate 73 /min BP Systolic 89 mmHg BP Diastolic 60 mmHg O2 % BldC Oximetry 98 % BMI (Body Mass Index) 28.9 kg/m2 02/25/2018 Height 68 inches 5'8" Weight 191.00 lb Heart Rate 76 /min BP Systolic 100 mmHg BP Diastolic 62 mmHg O2 % BldC Oximetry 98 % BMI (Body Mass Index) 29.0 kg/m2 Waist Circumference 37 02/19/2018 Height 68 inches 5'8" Weight 191.00 lb Heart Rate 94 /min BP Systolic 132 mmHg BP Diastolic 66 mmHg Body Temperature 97.9 F O2 % BldC Oximetry 97 % BMI (Body Mass Index) 29.0 kg/m2 02/08/2018 Height 68 inches 5'8" Weight 191.00 lb Heart Rate 86 /min BP Systolic 110 mmHg BP Diastolic 70 mmHg Body Temperature 97.9 F O2 % BldC Oximetry 96 % BMI (Body Mass Index) 29.0 kg/m2 01/31/2018 Height 68 inches 5'8" Weight 191.00 lb Heart Rate 69 /min BP Systolic Standing 101 mmHg BP Diastolic Standing 59 mmHg Respiratory Rate 14 /min Pain Level 5 BMI (Body Mass Index) 29.0 kg/m2 01/25/2018 Height 68 inches 5'8" Weight 192.00 lb Heart Rate 72 /min BP Systolic 98 mmHg BP Diastolic 64 mmHg Body Temperature 97.6 F O2 % BldC Oximetry 98 % BMI (Body Mass Index) 29.2 kg/m2 01/17/2018 Height 68 inches 5'8" Weight 190.38 lb Heart Rate 80 /min BP Systolic Sitting 111 mmHg BP Diastolic Sitting 66 mmHg Respiratory Rate 14 /min Pain Level 7 BMI (Body Mass Index) 28.9 kg/m2 01/11/2018 Height 68 inches 5'8" Weight 192.00 lb Heart Rate 86 /min BP Systolic 102 mmHg BP Diastolic 64 mmHg Body Temperature 97.0 F O2 % BldC Oximetry 97 % BMI (Body Mass Index) 29.2 kg/m2 01/08/2018 Height 68 inches 5'8" Weight 195.00 lb per pt Heart Rate 72 /min BP Systolic Sitting 124 mmHg BP Diastolic Sitting 80 mmHg Respiratory Rate 14 /min Body Temperature 97.7 F BMI (Body Mass Index) 29.6 kg/m2 12/25/2017 Height 68 inches 5'8" Weight 195.00 [...] Result H/L Range Note Comp Metabolic Panel 02/25/2018 Sodium 138 mmol/L 135-145 Potassium 3.9 mmol/L 3.5-5.0 Chloride 103 mmol/L 101-111 Co2 Carbon Dioxide 27 mmol/L 22-32 Anion Gap 8 mmol/L 2-11 Glucose 96 mg/dL 70-100 Blood Urea Nitrogen 16 mg/dL 6-24 Creatinine 0.75 mg/dL 0.51-0.95 BUN/Creatinine Ratio 21.3 High 8-20 Calcium 9.8 mg/dL 8.6-10.3 Total Protein 7.7 g/dL 6.4-8.9 Albumin 5.1 g/dL 3.2-5.2 Globulin 2.6 g/dL 2-4 Albumin/Globulin Ratio 2.0 1-3 Total Bilirubin 1.40 mg/dL High 0.2-1.0 Alkaline Phosphatase 82 U/L 34-104 Alt 15 U/L 7-52 Ast 17 U/L 13-39 Egfr Non- 92.0 >60 Egfr 111.3 >60 1 Laboratory test finding 02/25/2018 Erythrocyte Sed Rate 11 mm/Hr 0-14 C Reactive Protein 3.89 mg/L <8.01 CK Isoenzymes 02/25/2018 Creatine Kinase 78 U/L 26 - 192 CK Isoenzyme Elec, Specimen See Comment 2 CBC Auto Diff 02/25/2018 White Blood Count 8.0 10^3/uL 3.5-10.8 Red Blood Count 4.91 10^6/uL 4.00-5.40 Hemoglobin 13.9 g/dL 12.0-16.0 Hematocrit 41 % 35-47 Mean Corpuscular Volume 84 fL 80-97 Mean Corpuscular Hemoglobin 28 pg 27-31 Mean Corpuscular HGB Conc 34 g/dL 31-36 Red Cell Distribution Width 13 % 10.5-15 Platelet Count 331 10^3/uL 150-450 Mean Platelet Volume 8.5 um3 7.4-10.4 Abs Neutrophils 5.5 10^3/uL 1.5-7.7 Abs Lymphocytes 1.8 10^3/uL 1.0-4.8 Abs Monocytes 0.5 10^3/uL 0-0.8 Abs Eosinophils 0.2 10^3/uL 0-0.6 Abs Basophils 0 10^3/uL 0-0.2 Abs Nucleated RBC 0 10^3/uL Granulocyte % 68.7 % 38-83 Lymphocyte % 22.4 % Low 25-47 Monocyte % 6.0 % 0-7 Eosinophil % 2.3 % 0-6 Basophil % 0.6 % 0-2 Nucleated Red Blood Cells % 0 Laboratory test finding 02/25/2018 Vitamin D, 1,25 Dihydroxy 36 pg/mL 18- 78 3 Lipid Profile (Trig/Chol/HDL) 02/21/2018 Triglycerides 51 mg/dL 4 Cholesterol 149 mg/dL 5 HDL Cholesterol 46.1 mg/dL 6 LDL Cholesterol 93 mg/dL 7 Laboratory test 02/21/2018 Glucose 90 mg/dL 70-100 finding Laboratory test 01/14/2018 HCG < 0.60 mIU/mL 8 finding Inr/Protime 12/31/2017 Inr 1.01 0.77-1.02 Laboratory test 12/31/2017 D Dimer Quantitative < 200 ng/mL Less Than 230 9 finding Wound Culture/Sensi 12/10/2017 Wound/Misc SEE RESULT 10 Culture-Gram Stain BELOW CBC Auto Diff 07/13/2017 White Blood Count [...] 0-2 Nucleated Red Blood Cells % 0 Laboratory test finding 07/13/2017 TSH (Thyroid Stim Horm) 1.96 mcIU/mL 0.34-5.60 Vitamin B12 309 pg/mL 180-914 11 Vitamin D Total 25(Oh) 30.4 ng/mL 20-50 Comp Metabolic Panel 07/13/2017 Sodium 138 mmol/L [...] Egfr Non- 87.9 >60 Egfr 113.1 >60 12 Type & Screen 05/24/2017 Patient Blood Type A Positive Antibody Screen NEGATIVE CBC No Diff 05/24/2017 White Blood Count 6.5 10^3/uL 3.5-10.8 Red Blood Count 4.66 10^6/uL 4.0-5.4 Hemoglobin 13.3 g/dL 12.0-16.0 Hematocrit 40 % 35-47 Mean Corpuscular Volume 85 fL 80-97 Mean Corpuscular Hemoglobin 29 pg 27-31 Mean Corpuscular HGB Conc 33 g/dL 31-36 Red Cell Distribution Width 13 % 10.5-15 Platelet Count 259 10^3/uL 150-450 Mean Platelet Volume 8 um3 7.4-10.4 Laboratory test finding 09/20/2016 Zika Screen Nysdoh, Urine SEE RESULT BELOW 13 Zika Screen Nysdoh, Serum SEE RESULT BELOW 14 Poc Urinalysis 09/10/2016 Poc Glucose, Urine Negative Negative Poc Bilirubin, Urine Negative Negative Poc Ketone, Urine Negative Negative Poc Specific [place], Urine >=1.030 1.010-1.030 Poc Blood, Urine Negative Negative Poc pH, Urine 5.5 5-9 Poc Protein, Urine Negative Negative Poc Urobilinogen, Urine 0.2 Negative Poc Nitrite, Urine Negative Negative Poc Leukocytes, Urine Negative Negative Poc Color, Urine Yellow Poc Clarity, Urine Clear 15 Poc Urinalysis 09/10/2016 Poc Glucose, Urine Negative Negative Poc Bilirubin, Urine Negative Negative Poc Ketone, Urine Negative Negative Poc Specific [place], Urine 1.025 1.010-1.030 Poc Blood, Urine Negative Negative Poc pH, Urine 5.5 5-9 Poc Protein, Urine Negative Negative Poc Urobilinogen, Urine 0.2 Negative Poc Nitrite, Urine Negative Negative Poc Leukocytes, Urine Negative Negative Poc Color, Urine Yellow Poc Clarity, Urine Clear 16 Laboratory test finding 03/28/2016 Culture Throat SEE RESULT BELOW 17 1 Because ethnic data is not always [...] 5 Kidney failure <15 (or dialysis) 2 RESULT: If CK result is <100, isoenzyme will not be performed. Test Performed by: [facility] - [address] [address] 3 ADDITIONAL INFORMATION This test was developed and its performance characteristics determined by [facility] in a manner consistent with CLIA requirements. This test has not been cleared or approved by the U.S. Food and Drug Administration. Test Performed by: [facility] - [facility] [address] [place] [address] 4 Desirable: <150 Borderline High: 150-199 High: 200-499 Very High: >500 5 Desirable: <200 Borderline High: 200-239 High: >239 6 Low: <40 Desirable: 40-60 High: >60 7 Desirable: <100 Near Optimal: 100-129 Borderline High: 130-159 High: 160-189 Very High: >189 8 <5.0 Negative 5.0 - 25.0 Indeterminate (Repeat testing recommended after 72 hours) >25.0 Positive Perimenopausal women can display HCG levels of up to 20 mIU/mL 9 Please note: The following may produce a false positive D Dimer test: - Rheumatoid factor greater than 60 IU/ml - Plasma hemoglobin greater than 0.05 gm/dl - Bilirubin greater than 50 mg/dl - Lipids greater than 1000 mg/dl - FDP greater than 20 ug/ml 10 SEE RESULT BELOW Name: MARITZA PARKER : [address]: Meera Carrera MD Acct: [id number] Unit: [id number] AGE: 27 Location: [facility] Re12/10/17 SEX: F Status: REG REF SPEC: [id number] RACHEL: 12/10/17-[address]: Meera Carrera MD REQ: [id number] RECD: 12/10/17 STATUS: COMP _ SOURCE: BREAST,LEF SPDESC: ORDERED: Culture Stain COMMENTS: [id number] Procedure Result Reported Site Wound/Misc Gram Stain Final 12/11/17- 22 ML 2+ Neutrophils No Organisms Seen Wound/Misc Culture Final 12/12/17- 0859 ML Organism 1 NORMAL JENNIFER Quantity 1+ * ML - Main Lab . END OF REPORT DEPARTMENT OF PATHOLOGY, [address] [place] [address] Chacho Bland M.D. Director [facility] # [id number] 11 Normal Range 180 to 914 Indeterminate Range 145 to 180 Deficient Range <145 12 Because ethnic data is not always readily [...] 15-29 5 Kidney failure <15 (or dialysis) 13 SEE RESULT BELOW Name: MARITZA PARKER : [address]: Naye Romeo NP Acct: [id number] Unit: [id number] AGE: 26 Location: LAB Re09/20/16 SEX: F Status: REG REF SPEC: [id number] RACHEL: 09/20/16-[address]: Naye Romeo NP REQ: [id number] RECD: 09/20/16 STATUS: PAM OBREGON DR: Iris Adames PAN CLEANER _ SOURCE: URINE SPDESC: ORDERED: Zika Screen, Ur QUERIES: Has the Health Department been contacted for approval? Y Procedure Result Reported Site Zika Screen [facility], Urine Final 09/29/16- 1121 ML Zika virus RNA by real-time RT-PCR*: Not Detected Test Performed by: [facility] [address] [place] [address] * ML - MAIN LAB ([facility]) . END OF REPORT * ML=Testing performed at Main Lab DEPARTMENT OF PATHOLOGY, [address] [place] [address] Chacho Bland M.D. Director [facility] # [id number] 14 SEE RESULT BELOW Name: KEITHMARITZA GONSALES : [address]: Naye Romeo NP Acct: [id number] Unit: [id number] AGE: 26 Location: LAB Re09/20/16 SEX: F Status: REG REF SPEC: [id number] RACHEL: 09/20/16-[address]: Naye Romeo NP REQ: [id number] RECD: 09/20/162 STATUS: PAM BENEDICT DR: Iris Adames PAN CLEANER _ SOURCE: SERUM SPDESC: ORDERED: Zika Screen, S QUERIES: Has the Health Department been contacted for approval? Y Procedure Result Reported Site Zika Screen [facility], Serum Final 09/29/16- 1120 ML Zika IgM [...] the absence of current or recent infection. [id number] collected 09/20/16: Negative The Zika virus ROGER performance characteristics were determined by the CDC and the [facility]. These test results must not be the sole basis for diagnosis, treatment or assessing a patient s health. Please see additional important information about zika virus at: Fact Sheet for Health Care Providers:Interpreting Zika MAC-ROGER Results http://www.cdc.gov/zika/pdfs/chpm-syj-szwzm-bedt-sepcv-pcs-h cp.pdf Fact Sheet for Patients:Understanding Results from the Zika MAC ROGER http://www.cdc.gov/zika/pdfs/edrn-jdf-zqunl-hsax-dytvm-pbk-p atients.pdf Fact Sheet for Women:Understanding Results from the CONTINUED ON NEXT PAGE * ML=Testing performed at Main Lab DEPARTMENT OF PATHOLOGY, [address] [place] [address] Chacho Bland M.D. Director [facility] # [id number] Patient: MARITZA PARKER [id number] (Continued) Specimen: [id number] Collected: 09/20/16-1009 Received: 09/20/16-1021 (Continued) Procedure Result Reported Site Zika Qamar CHACON Serum Final (continued) 09/29/16- 1120 Zika MAC-ROGER http://www.cdc.gov/zika/pdfs/gtap-sgo-hqewa- arvq-ssanf-itd--women.pdf Microsphere Immunofluorescence Assay* Results suggest the absence of flavivrus antibodies. If this specimen was collected <8 days after symptom onset or <3 weeks after exposure, negative results should be confirmed by collecting another specimen in 3 weeks. West Nile E Polyvalent Microsphere Immunofluorescence Assay [id number] collected 09/20/16 Result: Nonreactive Test Performed by: [address] [address] * ML - MAIN LAB ([facility]) . END OF REPORT * ML=Testing performed at Main Lab DEPARTMENT OF PATHOLOGY, [address] [place] [address] Chacho Bland M.D. Director [facility] # [id number] 15 Molder Machine Tender: [id number] ALISON EAGLE 16 Molder Machine Tender: [id number] CHANCE MEDEROS 17 SEE RESULT BELOW Name: MARITZA PARKER : [address]: Iris Adames NP Acct: [id number] Unit: [id number] AGE: 25 Location: [facility] Re03/28/16 SEX: F Status: REG REF SPEC: [id number] RACHEL: 03/28/[address]: Iris Adames NP REQ: [id number] RECD: 03/28/16 STATUS: COMP _ SOURCE: THROAT SPDESC: ORDERED: Throat Culture Procedure Result Reported Site Throat Culture Final 03/30/16- 1213 ML Organism 1 NORMAL JENNIFER Quantity 3+ Throat cultures are clinically indicated to detect the presence of group A strep, arcanobacterium and yeast. In certain cases, predominating organisms will be reported. * ML - MAIN LAB ([facility]) . END OF REPORT * ML=Testing performed at Main Lab DEPARTMENT OF PATHOLOGY, [address] [place] [address] Chacho Bland M.D. Director [facility] # [id number] Procedures Date CPT Code Description Status 02/25/2018 90334 Admin & Interp Of Health Risk Assessment w/ Patient Completed 01/01/2018 84355 Nerve Conduction 03-04 Studies Completed 01/01/2018 33817 Needle Electromyography Each Extremity W/Related Completed Paraspinal Areas Encounters Type Date Location Provider CPT E/M Dx Office Visit 02/19/2018 [facility] - Irsi Adames, N.P. 45394 A69.20 11:20a [place] Office Visit 02/08/2018 [facility] - Iris Adames, N.P. 56094 A69.20 10:20a [place] Office Visit 01/31/2018 [facility] Eric Alfonso M.D. 64384 M62.81 9:40a [facility] M79.641 M79.642 M54.5 Office Visit 01/25/2018 10:20a [facility] - Iris Adames, 07482 A69.20 [place] N.P. Office Visit 01/17/2018 11:00a [facility] Eric Alfonso 40832 A69.20 [facility] Lauren M25.541 M25.542 M62.81 Z79.52 Office Visit 01/11/2018 10:00a [facility] Iris Adames, N.P. 48366 A69.20 - [place] Office Visit [facility]/08[facility]2018 [facility] [address] A69.20 Infectious Diseases Lauren Lee M25.541 M25.542 Office Visit 01/03/2018 7:00a [facility] [address] M62.81 R20.2 A69.20 Office Visit 01/03/2018 [facility] Miranda Wang, [address] M79.641 11:18a kenny Fulton PAN CLEANER Hospitalists M79.642 R53.1 M54.2 A69.20 Office Visit 01/02/2018 11:16a [facility] [place] [address] M62.81 R20.2 A69.20 Office Visit 01/02/2018 11:18a [facility] GARRICK Hodgson 39416 R53.1 Hospitalists R20.0 A69.20 Office Visit 01/02/2018 11:20a [facility] Eric Alfonso, 95369 A69.20 Of Nathaniel Aguilar R20.8 M25.641 M25.642 Office Visit 01/01/2018 11:17a [facility] Manuel Quiroz 24786 M25.641 Infectious Diseases Lauren Lee M25.541 M25.642 M25.542 Office Visit 01/01/2018 7:00a [facility] [address] M62.81 R20.2 A69.20 D68.52 Office Visit 01/01/2018 11:19a [facility] Eric Alfonso, 50207 A69.20 Of Nathaniel Aguilar R22.33 R20.8 Office Visit 01/01/2018 11:17a [facility], GARRICK Hodgson 74160 R53.1 Hospitalists R20.0 A69.20 Office Visit 12/31/2017 11:17a [facility], [place] [address] M54.2 Hospitalists R53.1 R22.33 A69.20 Office Visit 12/25/2017 4:00p [facility] Iris Adames, N.P. 84730 A69.20 - [place] Office Visit 12/10/2017 9:40a [facility] Meera Carrera 10549 O91.23 - [place] Aguilar Office Visit 07/11/2017 11:40a [facility] [place] [address] R21 - Alethea R53.83 O72.2 F41.9 Office Visit 07/14/2016 1:00p [facility] - Iris Adames, N.P. 36704 R21 [place] M79.674 Office Visit 03/28/2016 11:40a [facility] Iris Adames, N.P. 52691 J06.9 - [place] J02.9 Office Visit 10/28/2015 1:00p [facility] [place] [address] Z91.030 [place] B00.1 Plan of Care Future Appointment(s):03/28/2018 10:40 am - Eric Alfonso M.D. at [facility]03/13/2018 10:00 am - Iris Adames N.P. 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
--- OUTSIDE RECORDS SUMMARY | 2018-03-20 16:29 | XMS REPORT ---
:1990 External Reference #:[id number] Author Organization [facility] [employer] Address [address] [place] [address] Phone [phone] Care Team Providers Name Role Phone Meera Carrera MD Primary Care Physician Unavailable Payers Type Date Identification Numbers Payment Provider Subscriber Commercial Policy Number: [id number] [employer] Maritza Shieldsrf PayID: [id number] [address] [place] [address] Commercial Policy Number: [id number] Daniel Parker Group Number: [id number] [address] PayID: [id number] [place] [address] Problems Date Description Provider Status Onset: 07/14/2016 [...] Form Strength Qnty SIG Indications Ordering Provider Denavir 07/11/ Active Cream 1% 5gm apply Christopher 2018 three Ciarra, [employer] times daily as needed Epipen 2-Surinder 10/27/ [...] Tablets 10mg 90tabs Take one M25.541 Eric 2018 - capsule/t Naty, 02/19/ ab every M.D. 2018 8 hours, decrease to twice daily on 01/21, decrease to 1 daily on 01/27, d/c on 02/08 Doxycycline 12/25/ Hx Tablets DR 100mg 28tabs 1 po bid A69.20 Iris Hyclate 2018 - x 14 days Varn, N.P. 2017 Amoxicillin 12/25/ Hx Tablets 500mg 63tabs 1 tab by Iris 2018 - mouth Varn, N.P. 01/01/ three 2018 times a day x 21 days Dicloxacillin 12/10/ Hx Capsules 500mg 28caps 1 po qid O91.23 Meera Sodium 2018 - for 1 Cotton, 12/17/ week M.D. 2017 PNV-Dha 07/23/ Hx Capsules 27-0.6-0.4 30caps One Christopher 2017 - -300mg capsule PRICILLA Lafleur 02/19/ daily([facility] 2017 [id number] 1-30) One 07/11/ Hx Tablets 30tabs once [...] Iris 2015 - day one, Varn, N.P. 10/23/ one daily 2016 till gone Valacyclovir 03/24/ Hx Tablets 1gm 12tabs take two Christopher HCL 2015 - tablets PRICILLA Lafleur 03/28/ by mouth 2015 twice daily x 1 day Kariva 10/27/ Hx Tablets 0.15-0.02/ 28tabs once Christopher 2016 - 0.01 mg daily Ciarra, PRICILLA (05/11) 2015 Ibuprofen 10/27/ Hx Tablets 600mg 90tabs by mouth Christopher 2015 - three PRICILLA Lafleur 03/28/ times a 2015 day as needed with food Denavir 10/27/ Hx Cream 1% 5gm apply Christopher 2015 - three PRICILLA Lafleur times 2015 daily as needed Ambien / Hx Tablets 5mg one by Unknown 0000 - mouth at 07/14/ bedtime 2016 as needed Xanax // Hx Tablets 0.5mg 1-2 tabs Unknown 0000 - by mouth three 2016 times a day as needed Lidoderm / Hx Patches 5% use as Unknown 0000 - needed on 2015 area. on for 12 hours then off for 12 hours. Percocet /00/ Hx Tablets 7.5-325mg 1-2 by Unknown 0000 - mouth every 6 2015 hours as needed pain Xarelto / Hx Tablets 15mg 1 by Unknown 0000 - mouth every day 2016 Cefuroxime /00/ Hx Tablets 250mg Take 2 Unknown Axetil 0000 - Tablets 01/11/ By Mouth 2017 Two Times Daily For 1 Week Prednisone / Hx Tablets 10mg Take 3 Unknown 0000 - Tablets 01/11/ By Mouth 2017 Every Day For 2 Days Then Take 2 Tablets By Mo Vital Signs Date Vital Result Comment 02/19/2018 Height 68 inches 5'8" Weight 191.00 [...] Test Date Test Result H/L Range Note Laboratory test 01/14/2018 HCG < 0.60 mIU/mL 1 finding Inr/Protime 12/31/2017 Inr 1.01 0.77-1.02 Laboratory test 12/31/2017 D Dimer Quantitative < 200 ng/mL Less Than 230 2 finding Wound 12/10/2017 Wound/Misc SEE RESULT 3 Culture/Sensi Culture-Gram Stain BELOW CBC Auto Diff 07/13/2017 [...] mcIU/mL 0.34-5.60 Vitamin B12 309 pg/mL 180-914 4 Vitamin D Total 25(Oh) 30.4 ng/mL 20-50 [...] Egfr Non- 87.9 >60 Egfr 113.1 >60 5 CBC No Diff 05/24/2017 White Blood Count [...] Zika Screen Nysdoh, Urine SEE RESULT BELOW 6 Zika Screen Nysdoh, Serum SEE RESULT BELOW 7 Poc Urinalysis 09/10/2016 Poc Glucose, Urine Negative Negative Poc Bilirubin, Urine Negative Negative Poc Ketone, Urine Negative Negative Poc Specific Clover, Urine >=1.030 1.010-1.030 Poc Blood, Urine Negative Negative Poc pH, Urine 5.5 5-9 Poc Protein, Urine Negative Negative Poc Urobilinogen, Urine 0.2 Negative Poc Nitrite, Urine Negative Negative Poc Leukocytes, Urine Negative Negative Poc Color, Urine Yellow Poc Clarity, Urine Clear 8 Poc Urinalysis 09/10/2016 Poc Glucose, Urine Negative Negative Poc Bilirubin, Urine Negative Negative Poc Ketone, Urine Negative Negative Poc Specific Clover, Urine 1.025 1.010-1.030 Poc Blood, Urine Negative Negative Poc pH, Urine 5.5 5-9 Poc Protein, Urine Negative Negative Poc Urobilinogen, Urine 0.2 Negative Poc Nitrite, Urine Negative Negative Poc Leukocytes, Urine Negative Negative Poc Color, Urine Yellow Poc Clarity, Urine Clear 9 Laboratory test finding 03/28/2016 Culture Throat SEE RESULT BELOW 10 1 <5.0 Negative 5.0 - 25.0 Indeterminate (Repeat testing recommended after 72 hours) >25.0 Positive Perimenopausal women can display HCG levels of up to 20 mIU/mL 2 Please note: The following may produce a false positive D Dimer test: - Rheumatoid factor greater than 60 IU/ml - Plasma hemoglobin greater than 0.05 gm/dl - Bilirubin greater than 50 mg/dl - Lipids greater than 1000 mg/dl - FDP greater than 20 ug/ml 3 SEE RESULT BELOW Name: MARITZA PARKER : [address]: Meera Carrera MD Acct: [id number] Unit: [id number] AGE: 27 Location: [facility] Re12/10/17 SEX: F Status: REG REF SPEC: [id number] RACHEL: 12/10/171011 [facility] DR: Meera Carrera MD REQ: [id number] RECD: 12/10/17 STATUS: COMP _ SOURCE: BREAST,LEF SPDESC: ORDERED: Culture Stain COMMENTS: [id number] Procedure Result Reported Site Wound/Misc Gram Stain Final 12/11/17- 821 ML 2+ Neutrophils No Organisms Seen Wound/Misc Culture Final 12/12/17- 59 ML Organism 1 NORMAL JENNIFER Quantity 1+ * ML - Main Lab . END OF REPORT DEPARTMENT OF PATHOLOGY, [address] [place] [address] Chacho Bland M.D. Director [facility] # [id number] 4 Normal Range 180 to 914 Indeterminate Range 145 to 180 Deficient Range <145 5 Because ethnic data is not always readily [...] 15-29 5 Kidney failure <15 (or dialysis) 6 SEE RESULT BELOW Name: MARITZA PARKER : [address]: Naye Romeo NP Acct: [id number] Unit: [id number] AGE: 26 Location: LAB Re09/20/16 SEX: F Status: REG REF SPEC: [id number] RACHEL: 09/20/16-[address]: Naye Romeo NP REQ: [id number] RECD: 09/20/16-1021 STATUS: PAM OBREGON DR: Iris Adames NP _ SOURCE: URINE SPDESC: ORDERED: Zika Screen, Ur QUERIES: Has the Health Department been contacted for approval? Y Procedure Result Reported Site Zika Screen INES, Urine Final 09/29/16- 1121 ML Zika virus RNA by real-time RT-PCR*: Not Detected Test Performed by: [address] [address] * ML - MAIN LAB ([facility]) . END OF REPORT * ML=Testing performed at Main Lab DEPARTMENT OF PATHOLOGY, [address] [place] [address] Chacho Bland M.D. Director [facility] # [id number] 7 SEE RESULT BELOW Name: MARITZA PARKER : [address]: Naye Romeo NP Acct: [id number] Unit: [id number] AGE: 26 Location: LAB Re09/20/16 SEX: F Status: REG REF SPEC: [id number] RACHEL: 09/20/16-[address]: Naye Romeo NP REQ: [id number] RECD: 09/20/16-1021 STATUS: PAM OBREGON DR: Iris Adames [employer]ELOPER _ SOURCE: SERUM SPDESC: ORDERED: Zika Screen, S QUERIES: Has the Health Department been contacted for approval? Y Procedure Result Reported Site Zika Screen [facility], Serum Final 09/29/16- 1120 ML Zika IgM [...] the absence of current or recent infection. [id number] collected 09/20/16: Negative The Zika virus ROGER performance characteristics were determined by the CDC and the [facility]. These test results must not be the sole basis for diagnosis, treatment or assessing a patient s health. Please see additional important information about zika virus at: Fact Sheet for Health Care Providers:Interpreting Zika MAC-ROGER Results http://www.cdc.gov/zika/pdfs/lpct-jmy-myhsd-iqag-rjrej-sdp-h cp.pdf Fact Sheet for Patients:Understanding Results from the Zika MAC ROGER http://www.cdc.gov/zika/pdfs/fqzj-yqo-pqcjk-dunw-fdzhk-xkx-p atients.pdf Fact Sheet for Women:Understanding Results from the CONTINUED ON NEXT PAGE * ML=Testing performed at Main Lab DEPARTMENT OF PATHOLOGY, [address] [place] [address] Chacho Bland M.D. Director [facility] # [id number] Patient: KEITHMARITZA [id number] (Continued) Specimen: [id number] Collected: 09/20/16-1010 Received: 09/20/16-1021 (Continued) Procedure Result Reported Site Zika Screen [facility], Serum Final (continued) 09/29/16- 1120 Zika MAC-ROGER http://www.cdc.gov/zika/pdfs/gfti-yiq-vpbgc- xnot-zotgu-hzk--women.pdf Microsphere Immunofluorescence Assay* Results suggest the absence of flavivrus antibodies. If this specimen was collected <8 days after symptom onset or <3 weeks after exposure, negative results should be confirmed by collecting another specimen in 3 weeks. West Nile E Polyvalent Microsphere Immunofluorescence Assay [id number] collected 09/20/16 Result: Nonreactive Test Performed by: [address] [address] * ML - MAIN LAB ([facility]) . END OF REPORT * ML=Testing performed at Main Lab DEPARTMENT OF PATHOLOGY, [address] [place] [address] Chacho Bland M.D. Director [facility] # [id number] 8 Bucket Hooker: [id number] ALISON EAGLE 9 Bucket [place]er: [id number] CHANCE MEDEROS 10 SEE RESULT BELOW Name: MARITZA PARKER : [address]: Iris Adames NP Acct: [id number] Unit: [id number] AGE: 25 Location: [facility] Re03/28/16 SEX: F Status: REG REF SPEC: [id number] RACHEL: 03/28/[address]: Iris Adames NP REQ: [id number] RECD: 03/28/16 STATUS: COMP _ SOURCE: THROAT [...] performed at Main Lab DEPARTMENT OF PATHOLOGY, [address] [place] [address] Chacho Bland M.D. Director [facility] # [id number] Procedures Date CPT Code Description Status 01/01/2018 74121 Nerve Conduction 03-04 Studies Completed 01/01/2018 39738 Needle Electromyography Each Extremity W/Related Completed Paraspinal Areas Encounters Type Date Location Provider CPT E/M Dx Office Visit 02/08/2018 [facility] - Iris Adames, N.P. 65865 A69.20 10:20a [facility] Office Visit 01/31/2018 [facility] Eric Alfonso M.D. 72347 M62.81 9:40a Of [facility] M79.641 M79.642 M54.5 Office Visit 01/25/2018 10:20a [facility] - Iris Adames, 79302 A69.20 [place] [facility] Office Visit 01/17/2018 11:00a [facility] Eric Alfonso 94081 A69.20 Of Nathaniel Aguilar M25.541 M25.542 M62.81 Z79.52 Office Visit 01/11/2018 10:00a [facility] Iris Adames, N.P. 86515 A69.20 - [place]2018 [facility] [address] A69.20 Infectious Diseases Lauren Lee M25.541 M25.542 Office Visit 01/03/2018 [facility] Miranda Felipe, 66683 M79.641 11:18a Assoc, [employer] Hospitalists M79.642 R53.1 M54.2 A69.20 Office Visit 01/03/2018 7:00a [facility] [address] M62.81 R20.2 A69.20 Office Visit 01/02/2018 11:16a [facility] [address] M62.81 R20.2 A69.20 Office Visit 01/02/2018 11:18a [facility], GARRICK Hodgson [address]8423 R53.1 Hospitalists R20.0 A69.20 Office Visit 01/02/2018 11:20a [facility] Eric Alfonso, 19560 A69.20 Of Nathaniel Aguilar R20.8 M25.641 M25.642 Office Visit 01/01/2018 7:00a [facility] [place] [address] M62.81 R20.2 A69.20 D68.52 Office Visit 01/01/2018 11:17a [facility] Guillaume Quiroz 51065 M25.641 Infectious Diseases Lauren Lee M25.541 M25.642 M25.542 Office Visit 01/01/2018 11:19a [facility] Eric Alfonso 84209 A69.20 Of Nathaniel Aguilar R22.33 R20.8 Office Visit 01/01/2018 11:17a [facility],GARRICK Sauer [address]671 R53.1 Hospitalists R20.0 A69.20 Office Visit 12/31/2017 11:17a [facility], [place] [address] M54.2 Hospitalists R53.1 R22.33 A69.20 Office Visit 12/25/2017 4:00p [facility] Iris Adames, N.P. 43353 A69.20 - [place] Office Visit 12/10/2017 9:40a [facility] Meera Carrera, 64678 O91.23 - Alethea Aguilar Office Visit 07/11/2017 11:40a [facility] [place] [address] R21 - Alethea R53.83 O72.2 F41.9 Office Visit 07/14/2016 1:00p [facility] - Iris Adames, N.P. 67753 R21 Alethea M79.674 Office Visit 03/28/2016 11:40a [facility] Iris Adamse N.P. 33829 J06.9 - Alethea J02.9 Office Visit 10/28/2015 1:00p [facility] Internal [facility] [place] [address] Z91.030 Alethea B00.1 Plan of Care Future Appointment(s):03/13/2018 10:00 am - Iris Adames N.[place]. at [facility]03/01/2018 10:40 am - Eric Alfonso M.D. at [facility]02/25/2018 1:00 pm - Christopher Lafleur NP at [facility] Internal [facility]02/19/2018 - Iris Adames N.P.A69.20 Lyme disease, unspecifiedComments:Please try to get as much rest as you can. I realize this is difficult for you. I would like you to continue with your work schedule as it is. I suggest you touch base with Dr Rivero and see if you could start taking an anti inflammatory medication.Follow up:F/U 3 weeks
--- OUTSIDE RECORDS SUMMARY | 2018-03-20 16:29 | XMS REPORT ---
:1990 External Reference #:[id number] Author Organization [employer] Address [address] [place] [address] Phone [phone] Care Team Providers Name Role Phone Meera Carrrea MD Primary Care Physician Unavailable Payers Type Date Identification Numbers Payment Provider Subscriber Commercial Policy Number: [id number] [employer] Maritza Jared PayID: [id number] [address] [place] [address] Commercial Policy Number: [id number] Daniel Parker Group Number: [id number] [address] PayID: [id number] [place] [address] Problems Date Description Provider Status Onset: 07/14/2016 Hereditary coagulation factor deficiency Iris Adames, N.P. Active Family History Date Family Member(s) Problem(s) Comments General Breast Cancer Maternal GM breast CA in her s60s. Maternal GGM also had breast CA General Cancer maternal GF - bone CA, prostate cancer Father Heart Disease Father Diabetes Type II Father Issues r/t agent [place] exposure Mother Breast Cancer in her 40s [...] Form Strength Qnty SIG Indications Ordering Provider Meloxicam 02/19/ Active Tablets 15mg 30tabs 1 by Iris 2018 mouth Varn, N.P. every day Denavir 07/11/ Active Cream 1% 5gm apply Christopher 2017 three PRICILLA Lafleur times daily as needed Epipen 2-Surinder 10/27/ Active Solution 0.3mg/0.3M 1units use as Christopher 2015 Auto-Injec L directed PRICILAL Lafleur t Aspirin Ec / Active Tablets DR 81mg 1 by Unknown 0000 mouth every day Oxycodone-Aceta / Active Tablets 5-325mg Take 1 Unknown minophen 0000 Tablet By Mouth Every 4 Hours as Needed For Pain Maximum Daily Prednisone 01/08/ Hx Tablets 10mg 90tabs Take one M25.541 Eric 2018 - capsule/t Naty, 02/19/ ab every M.D. 2017 8 hours, decrease to twice daily on [...] 2017 - -300mg capsule PRICILLA Lafleur 02/19/ daily([facility] 2018 [id number] 1-30) One 07/11/ Hx Tablets 30tabs once [...] Tablets 1gm 12tabs take two Christopher HCL 2016 - tablets PRICILLA Lafleur 03/28/ by mouth 2015 twice daily x 1 day Kariva 10/27/ Hx Tablets 0.15-0.02/ 28tabs once Christopher 2016 - 0.01 mg daily PRICILLA Lafleur (05/11) 2015 Ibuprofen 10/27/ Hx Tablets 600mg 90tabs by mouth Christopher 2015 - three PRICILLA Lafleur 03/28/ times a 2015 day as needed with food Denavir 10/27/ Hx Cream 1% 5gm apply Christopher 2015 - PRICILLA Lafleur times 2015 daily as needed Ambien /00/ Hx Tablets 5mg one by Unknown 0000 - mouth at 07/14/ bedtime 2016 as needed Xanax / Hx Tablets 0.5mg 1-2 tabs Unknown 0000 - by mouth three 2015 times a day as needed Lidoderm / Hx Patches 5% use as Unknown 0000 - needed on 2015 area. on for 12 hours then off for 12 hours. Percocet 00/ Hx Tablets 7.5-325mg 1-2 by Unknown 0000 - mouth every 6 2015 hours as needed pain Xarelto / Hx Tablets 15mg 1 by Unknown 0000 - mouth 07/14/ every day 2016 Cefuroxime / Hx Tablets 250mg Take 2 Unknown Axetil 0000 - Tablets 01/11/ By Mouth 2017 Two Times Daily For 1 Week Prednisone /00/ Hx Tablets 10mg Take 3 Unknown 0000 - Tablets 01/11/ By Mouth 2017 Every Day For 2 Days Then Take 2 Tablets By Mo Vital Signs Date Vital Result Comment 02/27/2018 Height 68 inches 5'8" Weight 190.00 [...] Reactive Protein 3.89 mg/L <8.01 CK Isoenzymes <pending> CBC Auto Diff 02/25/2018 White Blood Count [...] test finding 02/25/2018 Vitamin D, 1,25 Dihydroxy <pending> Lipid Profile (Trig/Chol/HDL) 02/21/2018 Triglycerides 51 mg/dL 2 Cholesterol 149 mg/dL 3 HDL Cholesterol 46.1 mg/dL 4 LDL Cholesterol 93 mg/dL 5 Laboratory test 02/21/2018 Glucose 90 mg/dL 70-100 finding Laboratory test 01/14/2018 HCG < 0.60 mIU/mL 6 finding Inr/Protime 12/31/2017 Inr 1.01 0.77-1.02 Laboratory test 12/31/2017 D Dimer Quantitative < 200 ng/mL Less Than 230 7 finding Wound Culture/Sensi 12/10/2017 Wound/Misc SEE RESULT 8 Culture-Gram Stain BELOW Comp Metabolic Panel 07/13/2017 Sodium 138 mmol/L [...] Egfr Non- 87.9 >60 Egfr 113.1 >60 9 Laboratory test finding 07/13/2017 TSH (Thyroid Stim Horm) 1.96 mcIU/mL 0.34-5.60 Vitamin B12 309 pg/mL 180-914 10 Vitamin D Total 25(Oh) 30.4 ng/mL 20-50 [...] Zika Screen Nysdoh, Urine SEE RESULT BELOW 11 Zika Screen Nysdoh, Serum SEE RESULT BELOW 12 Poc Urinalysis 09/10/2016 Poc Glucose, Urine Negative Negative Poc Bilirubin, Urine Negative Negative Poc Ketone, Urine Negative Negative Poc Specific [place], Urine >=1.030 1.010-1.030 Poc Blood, Urine Negative Negative Poc pH, Urine 5.5 5-9 Poc Protein, Urine Negative Negative Poc Urobilinogen, Urine 0.2 Negative Poc Nitrite, Urine Negative Negative Poc Leukocytes, Urine Negative Negative Poc Color, Urine Yellow Poc Clarity, Urine Clear 13 Poc Urinalysis 09/10/2016 Poc Glucose, Urine Negative Negative Poc Bilirubin, Urine Negative Negative Poc Ketone, Urine Negative Negative Poc Specific [place], Urine 1.025 1.010-1.030 Poc Blood, Urine Negative Negative Poc pH, Urine 5.5 5-9 Poc Protein, Urine Negative Negative Poc Urobilinogen, Urine 0.2 Negative Poc Nitrite, Urine Negative Negative Poc Leukocytes, Urine Negative Negative Poc Color, Urine Yellow Poc Clarity, Urine Clear 14 Laboratory test finding 03/28/2016 Culture Throat SEE RESULT BELOW 15 1 Because ethnic data is not always [...] 5 Kidney failure <15 (or dialysis) 2 Desirable: <150 Borderline High: 150-199 High: 200-499 Very High: >500 3 Desirable: <200 Borderline High: 200-239 High: >239 4 Low: <40 Desirable: 40-60 High: >60 5 Desirable: <100 Near Optimal: 100-129 Borderline High: 130-159 High: 160-189 Very High: >189 6 <5.0 Negative 5.0 - 25.0 Indeterminate (Repeat testing recommended after 72 hours) >25.0 Positive Perimenopausal women can display HCG levels of up to 20 mIU/mL 7 Please note: The following may produce a false positive D Dimer test: - Rheumatoid factor greater than 60 IU/ml - Plasma hemoglobin greater than 0.05 gm/dl - Bilirubin greater than 50 mg/dl - Lipids greater than 1000 mg/dl - FDP greater than 20 ug/ml 8 SEE RESULT BELOW Name: MARITZA PARKER : [address]: Meera Carrera MD Acct: [id number] Unit: [id number] AGE: 27 Location: [facility] Re12/10/17 SEX: F Status: REG REF SPEC: [id number] RACHEL: 12/10/[address] [facility] [address]: Meera Carrera MD REQ: [id number] RECD: 12/10/17 STATUS: COMP _ SOURCE: BREAST,LEF SPDESC: ORDERED: Culture Stain COMMENTS: [id number] Procedure Result Reported Site Wound/Misc Gram Stain Final 12/11/17- 821 ML 2+ Neutrophils No Organisms Seen Wound/Misc Culture Final 12/12/17- 858 ML Organism 1 NORMAL JENNIFER Quantity 1+ * ML - Main Lab . END OF REPORT DEPARTMENT OF PATHOLOGY, [address] [place] [address] Chacho Bland M.D. Director [facility] # [id number] 9 Because ethnic data is not always readily [...] 15-29 5 Kidney failure <15 (or dialysis) 10 Normal Range 180 to 914 Indeterminate Range 145 to 180 Deficient Range <145 11 SEE RESULT BELOW Name: MARITZA PARKER : [address]: Naye Romeo NP Acct: [id number] Unit: [id number] AGE: 26 Location: LAB Re09/20/16 SEX: F Status: REG REF SPEC: [id number] RACHEL: 09/20/16-[address]: Naye Romeo NP REQ: [id number] RECD: 09/20/16-1022 STATUS: COMP [facility] : Iris Adames [employer] _ SOURCE: URINE SPDESC: ORDERED: Zika Screen, Ur QUERIES: Has the Health Department been contacted for approval? Y Procedure Result Reported Site Zika Screen INES, Urine Final 09/29/16- 1121 ML Zika virus RNA by real-time RT-PCR*: Not Detected Test Performed by: [address] [address] * ML - MAIN LAB ([facility]) . END OF REPORT * ML=Testing performed at Main Lab DEPARTMENT OF PATHOLOGY, [address] [place] [address] Chacho Bland M.D. Director [facility] # [id number] 12 SEE RESULT BELOW Name: MARITZA PARKER : [address]: Naye Romeo NP Acct: [id number] Unit: [id number] AGE: 26 Location: LAB Re09/20/16 SEX: F Status: REG REF SPEC: [id number] RACHEL: 09/20/16-[address]: Naye Romeo NP REQ: [id number] RECD: 09/20/16-1022 STATUS: PAM OBREGON DR: Iris Adames [employer] _ SOURCE: SERUM SPDESC: ORDERED: Zika Screen, S QUERIES: Has the Health Department been contacted for approval? Y Procedure Result Reported Site Zika Screen [facility], Serum Final 09/29/16- 1120 ML Zika IgM [...] the absence of current or recent infection. [id number] collected 09/20/16: Negative The Zika virus ROGER performance characteristics were determined by the CDC and the [facility]. These test results must not be the sole basis for diagnosis, treatment or assessing a patient s health. Please see additional important information about zika virus at: Fact Sheet for Health Care Providers:Interpreting Zika MAC-ROGER Results http://www.cdc.gov/zika/pdfs/ibij-noh-jeoba-wahz-hyubk-nnq-h cp.pdf Fact Sheet for Patients:Understanding Results from the Zika MAC ROGER http://www.cdc.gov/zika/pdfs/xndq-dnw-iwurq-gglo-wtvvm-ycq-p atients.pdf Fact Sheet for Women:Understanding Results from the CONTINUED ON NEXT PAGE * ML=Testing performed at Main Lab DEPARTMENT OF PATHOLOGY, [address] [place] [address] Chacho Bland M.D. Director [facility] # [id number] Patient: MARITZA PARKER [id number] (Continued) Specimen: [id number] Collected: 09/20/16-1010 Received: 09/20/16-1021 (Continued) Procedure Result Reported Site Zika Screen INES, Serum Final (continued) 09/29/16- 1120 Zika MAC-ROGER http://www.cdc.gov/zika/pdfs/oztt-vzd-ngthi- acmu-fhsmg-shh--women.pdf Microsphere Immunofluorescence Assay* Results suggest the absence of flavivrus antibodies. If this specimen was collected <8 days after symptom onset or <3 weeks after exposure, negative results should be confirmed by collecting another specimen in 3 weeks. West Nile E Polyvalent Microsphere Immunofluorescence Assay [id number] collected 09/20/16 Result: Nonreactive Test Performed by: [facility] of [address] [address] * ML - MAIN LAB ([facility]) . END OF REPORT * ML=Testing performed at Main Lab DEPARTMENT OF PATHOLOGY, [address] [place] [address] Chacho Bland M.D. Director [facility] # [id number] 13 Roll Hauler: [id number] ALISON EAGLE 14 Roll Hauler: [id number] CHANCE MEDEROS 15 SEE RESULT BELOW Name: MARITZA PARKER : [address]: Iris Adames NP Acct: [id number] Unit: [id number] AGE: 25 Location: [facility] Re03/28/16 SEX: F Status: REG REF SPEC: [id number] RACHEL: 03/28/[address]: Iris Adames NP REQ: [id number] RECD: 03/28/16 STATUS: COMP _ SOURCE: THROAT SPDESC: ORDERED: Throat Culture Procedure Result Reported Site Throat Culture Final 03/30/16- 1213 ML Organism 1 NORMAL JENNIFER Quantity 3+ Throat cultures are clinically indicated to detect the presence of group A strep, arcanobacterium and yeast. In certain cases, predominating organisms will be reported. * ML - MAIN LAB ([facility]) . END OF REPORT * ML=Testing performed at Main Lab DEPARTMENT OF PATHOLOGY, [address] [place] [address] Chacho Bland M.D. Director [facility] # [id number] Procedures Date CPT Code Description Status 01/01/2018 38207 Nerve Conduction 03-04 Studies Completed 01/01/2018 40014 Needle Electromyography Each Extremity W/Related Completed Paraspinal Areas Encounters Type Date Location Provider [facility] E/M Dx Office Visit 02/19/2018 [facility] Eugenia Adames, N.P. 19108 A69.20 11:20a [place] Office Visit 02/08/2018 [facility] Eugenia Adames, N.P. 05918 A69.20 10:20a [place] Office Visit 01/31/2018 [facility] Eric Alfonso M.D. 25042 M62.81 9:40a Of [facility] M79.641 M79.642 M54.5 Office Visit 01/25/2018 10:20a [facility] Eugenia Adames 26957 A69.20 [place] N.P. Office Visit 01/17/2018 11:00a [facility] Eric Alfonso 95394 A69.20 Of [facility] Aguilar M25.541 M25.542 M62.81 Z79.52 Office Visit 01/11/2018 10:00a [facility] Iris Adames, N.P. 40237 A69.20 - [place] Office Visit 01/08/2018 8:30a [facility] Guillaume Quiroz 49472 A69.20 Infectious Diseases Lauren Lee M25.541 M25.542 Office Visit 01/03/2018 7:00a [facility] [address] M62.81 R20.2 A69.20 Office Visit 01/03/2018 [facility] Miranda Wang, 11557 M79.641 11:18a [facility]oc, [employer] Hospitalists M79.642 R53.1 M54.2 A69.20 Office Visit 01/02/2018 11:16a [facility] [place] [address] M62.81 R20.2 A69.20 Office Visit 01/02/2018 11[facility]18[facility]ICK Sauer [address] R53.1 Hospitalists R20.0 A69.20 Office Visit 01/02/2018 11:20a [facility] Eric Alfonso, 85762 A69.20 Of Nathaniel Aguilar R20.8 M25.641 M25.642 Office Visit 01/01/2018 11:17a [facility] Guillaume Quiroz 14625 M25.641 Infectious Diseases Lauren Lee M25.541 M25.642 M25.542 Office Visit 01/01/2018 7:00a [facility] [place] [address] M62.81 R20.2 A69.20 D68.52 Office Visit 01/01/2018 11:19a [facility] Eric Alfonso, 05146 A69.20 Of Nathaniel Aguilar R22.33 R20.8 Office Visit 01/01/2018 11:17a [facility],GARRICK Sauer 36313 R53.1 Hospitalists R20.0 A69.20 Office Visit 12/31[facility]2017 [facility] [place] [address] M54.2 Hospitalists R53.1 R22.33 A69.20 Office Visit 12/25/2017 4:00p [facility] Iris Adames, N.P. 41647 A69.20 - [place] Office Visit 12/10/2017 9:40a [facility] Meera Carrera, 93739 O91.23 - Alethea Aguilar Office Visit 07/11/2017 11:40a [facility] Christopher Lafleur, [employer] [address] R21 - [place] R53.83 O72.2 F41.9 Office Visit 07/14/2016 1:00p [facility] - Iris Adames, N.P. 78215 R21 Alethea M79.674 Office Visit 03/28/2016 11:40a [facility] Iris Adames, N.P. 38635 J06.9 - [place] J02.9 Office Visit 10/28/2015 1:00p [facility] - Christopher Lafleur, PRICILLA 82016 Z91.030 [place] B00.1 Plan of Care Future Appointment(s):03/13/2018 10:00 am - Iris Adames N.[place]. at [facility] - Rymtspdbp18/14/2018 10:40 am - Eric Alfonso M.D. at [facility]02/27/2018 - Iris Adames N.P.A69.20 Lyme disease, unspecifiedComments:You are still suffering from symptoms from your Lyme Disease. I think it would be a good idea for you to see a specialist in [place] for further treatment at the [facility] in [place]. I will contact you once I get the referral generated.Once you get some rest if you still are feeling sad and anxious, then maybe we will consider medication for this.Follow up:F/U 2 weeks
--- NOTE | 2018-03-20 16:58 | ED ---
Throat Pain/Nasal Congestion - HPI Summary HPI Summary: The pt is a 27 y/o female with active Lyme disease presenting to [facility] c/o of eyeball pain onset today. The pain is rated 2/10 in severity. She notes blurred peripheral vision for the last 3 days and black spots in her vision field. The pt saw an machine operator picker today who noted an inflamed optic nerve. She notes nausea, vomiting, and joint pain. - History of Current Complaint Chief Complaint: EDEyeProblem Time Seen by Provider: 03/20/18 16:50 Hx Obtained From: Patient Onset/Duration: Still Present Severity: Mild - 2/10 in severity - Allergies/Home Medications Allergies/Adverse Reactions: Allergies Allergy/AdvReac Type Severity Reaction Status Date / Time bee venom protein (honey bee) Allergy Anaphylatic Verified 12/31/17 18:42 Shock docosanol [From Abreva] Allergy Swelling Verified 12/31/17 18:42 tioconazole Allergy Swelling Verified 12/31/17 18:42 [From Monistat 1 (tioconazole)] PMH/Surg Hx/FS Hx/Imm Hx Previously Healthy: No Endocrine/Hematology History: Reports: Hx Anticoagulant Therapy - not currently 12/2017, Hx Blood Disorders - Genetic Denies: Hx Diabetes, Hx Thyroid Disease Cardiovascular History: 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, Other Cardiovascular Problems/Disorders - Prothrombin Mutation Denies: Hx Congestive Heart Failure, Hx Hypertension, Hx Myocardial Infarction, Hx Pacemaker/ICD Respiratory History: Reports: Hx Asthma - exercise induced Denies: Hx Chronic Obstructive Pulmonary Disease (COPD), Hx Lung Cancer, Hx Pneumonia, Hx Pulmonary Embolism GI History: Denies: Hx Gall Bladder Disease, Hx Gastrointestinal Bleed, Hx Ulcer, Hx Urosepsis History: Denies: Hx Kidney Stones, Hx Renal Disease Musculoskeletal History: Reports: Hx Orthopedic Injury Sensory History: Reports: Hx Contacts or Glasses - both- will wear glasses day of surgery Denies: Hx Deafness, Hx Hearing Aid, Other Sensory Impairments Opthamlomology History: Reports: Hx Contacts or Glasses - both- will wear glasses day of surgery Denies: Other Sensory Impairments Neurological History: Reports: Other Neuro Impairments/Disorders - 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, Downs's Palsy Denies: Hx Dementia, Hx Migraine, Hx Seizures, Hx Transient Ischemic Attacks (TIA) Psychiatric History: Reports: Hx Anxiety - post Denies: Hx Depression, Hx Panic Disorder, Hx Schizophrenia, Hx Bipolar Disorder - Cancer History Hx Chemotherapy: No - Surgical History Surgery Procedure, Year, and Place: LEFT KNEE arthroscopic surgery; torn ACL repair- LEFT x6 Hx Anesthesia Reactions: No Infectious Disease History: No Infectious Disease History: Denies: Hx Hepatitis, Hx Human Immunodeficiency Virus (HIV), Traveled Outside the [place] in Last 30 Days - Family History Known Family History: Positive: Cardiac Disease, Hypertension, Other - father with exposure to Agent [place] and neurologic deficits Family History: breast CA - Social History Occupation: Employed Full-time Lives: With Family Alcohol Use: Occasionally Substance Use Type: Reports: None Smoking Status (MU): Never Smoked Tobacco Have You Smoked in the Last Year: No Review of Systems Eyes: Other - Positive: Black spots in vision field, eyeball pain Positive: Blurred Vision Positive: Vomiting, Nausea Musculoskeletal: Other - Positive: Joint pain secondary to Lyme dx All Other Systems Reviewed And Are Negative: Yes Physical Exam - Summary Physical Exam Summary: Appearance: Well-appearing, Well-nourished, lying in bed comfortable Skin: Warm, dry, no obvious rash Eyes: sclera anicteric, no conjunctival pallor ENT: mucous membranes moist Neck: deferred Respiratory: No signs of respiratory distress Cardiovascular: Appears well perfused, pulses are nml Abdomen: deferred Musculoskeletal: Moving all 4 extremities without obvious discomfort Neurological: Awake and alert, mentation is normal, speech is fluent and appropriate Psychiatric: affect is normal, does not appear anxious or depressed Triage Information Reviewed: Yes Vital Signs On Initial Exam: Initial Vitals Temp Pulse Resp BP Pulse Ox 98.4 F 91 16 121/79 99 03/20/18 16:07 03/20/18 16:07 03/20/18 16:07 03/20/18 16:07 03/20/18 16:07 Vital Signs Reviewed: Yes Diagnostics - Vital Signs Vital Signs Temp Pulse Resp BP Pulse Ox 03/20/18 16:07 98.4 F 91 16 121/79 99 - Laboratory Result Diagrams: 03/20/18 17:25 03/20/18 17:25 Lab Statement: Any lab studies that have been ordered have been reviewed, and results considered in the medical decision making process. EENT Course/Dx - Course Course Of Treatment: A 27 year-old F with active acute Lyme dx presents to the ED with a CC of eyeball pain onset today. The pain is rated 2/10 in severity. She notes blurred peripheral vision for the last 3 days and black spots in her vision field. The pt saw an machine operator picker today who noted an inflamed optic nerve. She notes nausea, vomiting, and joint pain. A physical exam is unremarkable. In the ED course, pt was given Doxycycline 110mg PO, Gadoteridol 18ml IV, Hydrochloroquine 200mg PO, Morphine 4mg IV and N.s 0.9% 1000 ml IV which improved the symptoms. The pt was signed out to Dr. Bradley Hernández at the change of shift due to pending MRI results. Allergies noted. - Diagnoses Provider Diagnoses: Orbital pain Discharge - Sign-Out/Discharge Documenting (check all that apply): Sign-Out Patient Signing out patient TO: Edgar Huerta - 22:00-The pt was signed out to Dr. Bradley Hernández MD at the change of shift due to pending MRI results. - Discharge Plan Condition: Stable Disposition: HOME Patient Education Materials: Eye Pain (ED) Referrals: Artemio Chang MD [Medical Doctor] - 2 Days Additional Instructions: RETURN TO THE EMERGENCY DEPARTMENT FOR CHANGING OR WORSENING SYMPTOMS. - Billing Disposition and Condition Condition: STABLE Disposition: Home - Attestation Statements Document Initiated by Rasibalmas: Yes Documenting Scribe: Winnie Contreras Provider For Whom Reagan is Documenting (Include Credential): Dr. Marc Cuellar MD Scribe Attestation: Winnie Tellez scribed for Dr. Marc Cuellar MD on 03/21/18 at 1500. Scribe Documentation Reviewed: Yes Provider Attestation: The documentation as recorded by the Winnie zaragoza accurately reflects the service I personally performed and the decisions made by , Dr. Marc Cuellar MD
[2018-03-20] MEDS ORDERED: Morphine VIAL* 4 MG/ML VIAL (1 ml vial) IV ONE (17:02)
[2018-03-20] MEDS ORDERED: NS 0.9% 1000 ML* 1,000 ML IV ONE (17:02)
[2018-03-20] MEDS ORDERED: Morphine INJ* 4 MG/ML 1 ML SYRINGE (NEW SYRINGE VERSION) ONE (17:40)
[2018-03-20 17:41] LABS: ABS Basophils 0 10^3/ul (0-0.2); ABS Eosinophils 0.1 10^3/ul (0-0.6); ABS Lymphocytes 1.1 10^3/ul (1.0-4.8); ABS Monocytes 0.6 10^3/ul (0-0.8); ABS Neutrophils 3.2 10^3/ul (1.5-7.7); ABS Nucleated RBC 0 10^3/ul; Eosinophil % 1.3 % (0-6); Hematocrit 38 % (35-47); Hemoglobin 12.9 g/dl (12.0-16.0); Lymphocyte % 22.6 % (25-47); Mean Corpuscular HGB Conc 34 g/dl (31-36); Mean Corpuscular Hemoglobin 28 pg (27-31); Mean Corpuscular Volume 82 fL (80-97); Mean Platelet Volume 7.4 um3 (7.4-10.4); Nucleated Red Blood Cells % 0.2; Platelet Count 240 10^3/ul (150-450); Red Blood Count 4.56 10^6/ul (4.00-5.40); Red Cell Distribution Width 13 % (10.5-15)
[2018-03-20 17:54] LABS: EGFR Non-African American 140.4 (>60)
[2018-03-20] MEDS ORDERED: Hydroxychloroquine TAB* 200 MG PO ONE (19:22)
[2018-03-20] MEDS ORDERED: DOXYcycline CAP(*) 100 MG PO ONE (19:22)
[2018-03-20] MEDS ORDERED: Gadoteridol* (CONTRAST) 279.3 MG/ML 10 ML IV ONE (20:11)
--- NOTE | 2018-03-20 21:53 | RAD ---
EXAM: MR Orbits Without And With Intravenous Contrast CLINICAL HISTORY: 27 years old, female; Pain and signs and symptoms and condition or disease; Other: Lyme disease; Visual changes or disturbances; Discomfort and sudden loss of vision; Eye pain; Left; Patient HX: Pt C/O severe left eye pain w/ peripheral vision loss. Pt has been treated for lyme disease since december 2017; Additional info: Sev l eye pain, opthal suspects optic neuritis TECHNIQUE: Multiplanar magnetic resonance images of the orbits without and with intravenous contrast. CONTRAST: 18 mL of prohance administered intravenously. COMPARISON: No relevant prior studies available. FINDINGS: Globes demonstrate normal morphology. No abnormal signal involving the optic nerves. Optic apparatus appears within normal limits. Superior ophthalmic veins are unremarkable. No orbital venous congestion, inflammatory change, mass or fluid collection. No pathologic enhancement involving either orbit. Lacrimal glands are symmetric and normal bilaterally. IMPRESSION: No acute abnormality involving either orbit. EXAM: MR Head Without And With Intravenous Contrast EXAM DATE/TIME: 03/20/2018 8:05 PM CLINICAL HISTORY: 27 years old, female; Pain and signs and symptoms and condition or disease; Other: Lyme disease; Visual changes or disturbances; Discomfort and sudden loss of vision; Eye pain; Left; Patient HX: Pt C/O severe left eye pain w/ peripheral vision loss. Pt has been treated for lyme disease since december 2017; Additional info: Sev l eye pain, opthal suspects optic neuritis TECHNIQUE: Magnetic resonance images of the head/brain without and with intravenous contrast in multiple planes. CONTRAST: 18 mL of prohance administered intravenously. 18 mL of prohance administered intravenously. COMPARISON: No relevant prior studies available. FINDINGS: Ventricles demonstrate normal size and age. Major vascular flow voids at the skull base are preserved. No extra-axial fluid collection. No midline shift or mass effect. No pathologic white matter signal or susceptibility. No diffusion restriction. No pathologic intracranial enhancement. Incidental small developmental venous anomaly at the right almaraz radiata. Minimal paranasal sinus disease. No mastoid effusion. IMPRESSION: No acute intracranial abnormality. No imaging features of demyelination. To contact [facility] with a general question: [facility] - [phone] For direct physician to physician contact: Physician Hotline - [phone] [facility] (ad Facility ID #[id number])
[2018-03-20] MEDS ORDERED: Morphine INJ* 4 MG/ML 1 ML SYRINGE (NEW SYRINGE VERSION) IV ONE (21:55)
--- NOTE | 2018-03-20 22:20 | ED ---
Progress - Progress Note Progress Note: Pt was signed out by Dr. Cuellar to Dr. Huerta, pending MRI results. - Results/Orders Results/Orders: Brain/Orbital MRI is negative, as per radiologist Course/Dx - Course Course Of Treatment: The Brain/orbital MRI results were negative. ED physician has reviewed this report. Pt will be discharged home and will see Dr. Chang to repeat her visual field exam, with a diagnosis of orbital pain - Diagnoses Provider Diagnoses: Orbital pain - Provider Notifications Discussed Care Of Patient With: Artemio Chang - recommended a repeat of visual field exam Discharge - Sign-Out/Discharge Documenting (check all that apply): Patient Departure - discharge - Discharge Plan Condition: Stable Disposition: HOME Patient Education Materials: Eye Pain (ED) Referrals: Artemio Chang MD [Medical Doctor] - 2 Days Additional Instructions: RETURN TO THE EMERGENCY DEPARTMENT FOR CHANGING OR WORSENING SYMPTOMS. - Attestation Statements Document Initiated by Scribe: Yes Documenting Scribe: Cale Alcantara Provider For Whom Scribe is Documenting (Include Credential): Edgar Huerta MD Scribe Attestation: Cale Tellez, scribed for Edgar Huerta MD on 03/20/18 at 2222.
[2018-03-20] MEDS ORDERED: oxyCODONE/Acetamin 5/325 MG* TAB PO ONE (22:58)
[2018-03-20 23:06] VITALS: BP 98/61
== END 2018-03-20 23:05 | disposition home or self-care (01) ==
LOC: ED 16:04
DX: H57.10 Ocular pain, unspecified eye (principal)
CPT/HCPCS: 36415; 70543; 80048; 85025; 96374; 99283; A9270-GY; A9579; J2270

== ENCOUNTER 2018-03-22 07:08 | Emergency (ER) | payer OTHER, MEDICAID ==
--- NOTE | 2018-03-22 07:45 | ED ---
Throat Pain/Nasal Congestion - HPI Summary HPI Summary: This pt is a 27 y/o female presenting to [facility] c/o left eye pain x3 days. Pt reports she saw Dr. Chang, head up operator helper, 3 days ago and was noted to have optic neuritis and was advised to come to the ED. In the ED pt had a a brain/ orbits MRI with contrast that was negative. Pt continued to have eye pain and went to see Dr. Chang again yesterday who noted the pt had no peripheral vision on her left eye . Dr. Chang then spoke with Dr. Galvez, neurologist, who recommended her to come to the ED for a lumbar puncture. Pt decided not to come yesterday because she has an 11 month baby at home and didn't have anyone who could stay with her. She reports her pain at worse is 10/10 in severity but when it does get better it is rated 7/10. PMHx: DVT, Lyme disease, [place] palsy, meningitis, prothrombin mutation gene. Pt reports she was diagnosed with Lyme disease on December 25 and was placed on 1 week of amoxicillin because she was breast feeding. Pt was admitted to [facility] on 12/31 for 4 days for lyme disease, right sided bells palsy and meningitis. She was discharged home with Ceftin, Percocet, and Prednisone. Since then pt has started seeing a new doctor (Dr. Caputo) in [place], [place] who started her on doxycycline 2 nights ago and had to stop nursing "cold turkey." - History of Current Complaint Chief Complaint: EDGeneral Time Seen by Provider: 03/22/18 07:25 Hx Obtained From: Patient Onset/Duration: Lasting Days, Still Present Severity: Severe - 7/10 Associated Signs And Symptoms: Negative: Dysphagia, FB Sensation, Drooling, Wheezing, Hoarseness, Sinus Discomfort, Nasal Discharge Cough: None - Allergies/Home Medications Allergies/Adverse Reactions: Allergies Allergy/AdvReac Type Severity Reaction Status Date / Time bee venom protein (honey bee) Allergy Anaphylatic Verified 12/31/17 18:42 Shock docosanol [From Abreva] Allergy Swelling Verified 12/31/17 18:42 tioconazole Allergy Swelling Verified 12/31/17 18:42 [From Monistat 1 (tioconazole)] Home Medications: Home Medications DOXYcycline CAP(*) [DOXYcycline 100MG CAP(*)] 100 mg PO BID 03/22/18 [History Confirmed 03/22/18] Hydroxychloroquine TAB* [Plaquenil TAB*] 200 mg PO DAILY 03/22/18 [History Confirmed 03/22/18] PMH/Surg Hx/FS Hx/Imm Hx Endocrine/Hematology History: Reports: Hx Anticoagulant Therapy - not currently 12/2017, Hx Blood Disorders - Genetic Denies: Hx Diabetes, Hx Thyroid Disease Cardiovascular History: 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, Other Cardiovascular Problems/Disorders - Prothrombin Mutation Denies: Hx Congestive Heart Failure, Hx Hypertension, Hx Myocardial Infarction, Hx Pacemaker/ICD Respiratory History: Reports: Hx Asthma - exercise induced Denies: Hx Chronic Obstructive Pulmonary Disease (COPD), Hx Lung Cancer, Hx Pneumonia, Hx Pulmonary Embolism GI History: Denies: Hx Gall Bladder Disease, Hx Gastrointestinal Bleed, Hx Ulcer, Hx Urosepsis History: Denies: Hx Kidney Stones, Hx Renal Disease Musculoskeletal History: Reports: Hx Orthopedic Injury Sensory History: Reports: Hx Contacts or Glasses - both- will wear glasses day of surgery Denies: Hx Deafness, Hx Hearing Aid, Other Sensory Impairments Opthamlomology History: Reports: Hx Contacts or Glasses - both- will wear glasses day of surgery Denies: Other Sensory Impairments Neurological History: Reports: Other Neuro Impairments/Disorders - 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, Downs's Palsy Denies: Hx Dementia, Hx Migraine, Hx Seizures, Hx Transient Ischemic Attacks (TIA) Psychiatric History: Reports: Hx Anxiety - post Denies: Hx Depression, Hx Panic Disorder, Hx Schizophrenia, Hx Bipolar Disorder - Cancer History Hx Chemotherapy: No - Surgical History Surgery Procedure, Year, and Place: LEFT KNEE arthroscopic surgery; torn ACL repair- LEFT x6 Hx Anesthesia Reactions: No Infectious Disease History: No Infectious Disease History: Denies: Hx Hepatitis, Hx Human Immunodeficiency Virus (HIV), Traveled Outside the [place] in Last 30 Days - Family History Known Family History: Positive: Cardiac Disease, Hypertension, Other - father with exposure to Agent [place] and neurologic deficits Family History: breast CA - Social History Alcohol Use: Occasionally Substance Use Type: Reports: None Smoking Status (MU): Never Smoked Tobacco Have You Smoked in the Last Year: No Review of Systems Negative: Fever, Chills Eyes: Other - eye pain Negative: Headache All Other Systems Reviewed And Are Negative: Yes Physical Exam - Summary Physical Exam Summary: VITAL SIGNS: Reviewed. GENERAL: Patient is a well-developed and nourished female who is lying comfortable in the stretcher. Patient is not in any acute respiratory distress. HEAD AND FACE: No signs of trauma. No ecchymosis, hematomas or skull depressions. No sinus tenderness. EYES: No injected conjunctiva, no nystagmus. Decreased left peripheral vision. EARS: Hearing grossly intact. Ear canals and tympanic membranes are within normal limits. MOUTH: Oropharynx within normal limits. NECK: Supple, trachea is midline, no adenopathy, no JVD, no carotid bruit, no c- spine tenderness, neck with full ROM. CHEST: Symmetric, no tenderness at palpation LUNGS: Clear to auscultation bilaterally. No wheezing or crackles. CVS: Regular rate and rhythm, S1 and S2 present, no murmurs or gallops appreciated. ABDOMEN: Soft, non-tender. No signs of distention. No rebound, no guarding, and no masses palpated. Bowel sounds are normal. EXTREMITIES: FROM in all major joints, no edema, no cyanosis or clubbing. NEURO: Alert and oriented x 3. No acute neurological deficits. Speech is normal and follows commands. SKIN: Dry and warm Triage Information Reviewed: Yes Vital Signs On Initial Exam: Initial Vitals Temp Pulse Resp BP Pulse Ox 97.1 F 83 17 99/66 98 03/22/18 07:18 03/22/18 07:18 03/22/18 07:18 03/22/18 07:18 03/22/18 07:18 Vital Signs Reviewed: Yes Diagnostics - Vital Signs Vital Signs Temp Pulse Resp BP Pulse Ox 03/22/18 07:18 97.1 F 83 17 99/66 98 - Laboratory Result Diagrams: 03/22/18 09:02 03/22/18 09:02 Lab Statement: Any lab studies that have been ordered have been reviewed, and results considered in the medical decision making process. Re-Evaluation - Re-Evaluation First Eval Re-Evaluation Time: 10:15 Comment: Dr. Jackson, anesthesiologist, in with pt to do LP procedure. Second Eval Re-Evaluation Time: 14:28 Comment: Dr. Peñaloza recommends to discharge the pt after his evaluation. Third Eval Re-Evaluation Time: 14:41 Comment: Discussed test results and recommendations from Dr. Peñaloza with pt. She will be discharged home. EENT Course/Dx - Course Assessment/Plan: This pt is a 27 y/o female presenting to [facility] c/o left eye pain x3 days. Pt reports she saw Dr. Chang, head up operator helper, 3 days ago and was noted to have optic neuritis and was advised to come to the ED. In the ED pt had an MRI of the brain and left orbit with and without contrast that was negative. Pt continued to have eye pain and went to see Dr. Chang again yesterday who noted the pt had decreased peripheral vision on her left eye . Dr. Chang then spoke with Dr. Galvez, neurologist, who recommended her to come to the ED for a lumbar puncture. Pt decided not to come yesterday because she has an 11 month baby at home and didn't have anyone who could stay with her. She reports her pain at worse is 10/10 in severity but when it does get better it is rated 7/10. PMHx: DVT x 2 one treated with Xarelto and the other with Lovenox, Lyme disease, Downs's palsy, meningitis, heterozygous prothrombin mutation gene. Currently she is not taking any blood thinners she is supposed to take ASA but she reports no taking none. Pt reports she was diagnosed with Lyme disease on December 25 and was placed on 1 week of amoxicillin because she was . Pt was admitted to [facility] on 12/31 for 4 days for lyme disease , right sided downs's palsy and meningitis secondary to her lyme. She was discharged home with Ceftin, Percocet, and Prednisone. Since then pt has started seeing a new doctor (Dr. Caputo) in [place] who started her on doxycycline 2 nights ago and had to stop nursing "cold turkey.". At this time I discussed with the patient, however the patient is very hesitant to get a lumbar puncture. I discussed the benefits and risk of the lumbar fracture however the patient is still not very sure that she wants to get a lumbar puncture. I discussed the case with Dr. Peñaloza from neurology and he still recommends for the patient to get a lumbar puncture. He reports that we should order and demyelinating Benadryl, IgG, Mysoline, protein, NM0, Lyme titer, cell count with differential, glucose and LISA. At this time I discussed the necessity for the lumbar puncture and I offered the patient to call anesthesia to do the procedure, and the patient now agrees to the lumbar puncture. I discussed the case with Dr. Jackson from anesthesia and she agreed to perform the lumbar puncture. The lumbar puncture was performed without any complications. Blood test results without any significant abnormality except for eosinophils 18, CRP of 11.9, urinalysis is negative for UTI. At this point I discussed the case with Dr. Peñaloza who came and examined the patient. At this point Dr. Peñaloza recommends for the patient to be discharged home with follow-up in his office. He doesnt recommend any other treatment at this point. She will continue taking the doxycycline. 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 I discussed all the findings test results and plan with the patient and she agrees with the plan and she will follow up with Dr. Peñaloza. Patient is hemodynamically stable, she is ambulating with a steady gait. She does not have any acute neurological focal deficits before discharge. She is alert and oriented x3. - Diagnoses Provider Diagnoses: Eye pain - Provider Notifications Discussed Care Of Patient With: Popeye Peñaloza Time Discussed With Above Provider: 07:55 Instructed by Provider To: Other - I discussed case with Dr. Peñaloza, neurologist. [08:21] I spoke with Dr. Jackson, anesthesiologist, who will come do the LP in the ED. Discharge - Sign-Out/Discharge Documenting (check all that apply): Patient Departure - Discharge to home - Discharge Plan Condition: Stable Disposition: HOME Patient Education Materials: Eye Pain (ED) Referrals: Meera Carrera MD [Primary Care Provider] - Popeye Peñaloza MD [Medical Doctor] - Additional Instructions: Please follow up with Dr. Peñaloza, neurologist. RETURN TO THE ED FOR ANY NEW OR WORSENING SYMPTOMS. - Attestation Statements Document Initiated by Scribe: Yes Documenting Scribe: Lelia Coates Provider For Whom Scribe is Documenting (Include Credential): Marcial Vargas MD Scribe Attestation: ILelia, scribed for Marcial Vargas MD on 03/22/18 at 1533.
--- OUTSIDE RECORDS SUMMARY | 2018-03-22 07:58 | XMS REPORT | Continuity of Care Document ---
:1990 External Reference #:[id number] Author Name Zurdo Nguyen, OD Address [address] [place] [address] Care Team Providers Name Role Phone Milton Caputo JR, MD Care Team Information Design Technology Teacher Unavailable Iris Adames NP Primary Care Physician Unavailable Payers Type Date Identification Numbers Payment Provider Subscriber Policy Number: [id number] [employer] Maritza Coleman PayID: [id number] [address] [place] [address] Policy Number: [id number] Medicaid [place] Maritza Coleman PayID: [id number] [address] [place] [address] Advance Directives Description No Information Available Problems Description No Information Family History Description No Information Available Social History Type Date Description Comments Sex Unknown ETOH Use Rarely consumes alcohol Tobacco Use Start: Unknown Patient has never smoked Smoking Status Reviewed: 03/21/18 Patient has never smoked Allergies, Adverse Reactions, [...] Available Procedures Date Code Description Status 03/20/2018 15487 Oct, Optic Nerve Completed 03/20/2018 59324 Visual Field Exam Extended, Unilateral Or Bilateral Completed 03/20/2018 34784 Eye Exam New Intermediate Completed Encounters Description No Information Available Plan of Treatment 03/20/2018 - Zurdo Nguyen, ODH46.12 Retrobulbar neuritis, left eyeFollow up:to ER follow up with visual field once discharged
[2018-03-22 09:08] LABS: Urine Appearance Cloudy; Urine Blood Negative (Negative); Urine Color Yellow; Urine Ketones Negative (Negative); Urine Protein Negative (Negative); Urine Red Blood Cell Absent (Absent); Urine Urobilinogen Negative (Negative); Urine White Blood Cell Trace(0-5/hpf) (Absent)
[2018-03-22 09:17] LABS: ABS Basophils 0 10^3/ul (0-0.2); ABS Eosinophils 0.1 10^3/ul (0-0.6); ABS Lymphocytes 1.1 10^3/ul (1.0-4.8); ABS Monocytes 0.3 10^3/ul (0-0.8); ABS Neutrophils 1.9 10^3/ul (1.5-7.7); ABS Nucleated RBC 0 10^3/ul; Eosinophil % 3.1 % (0-6); Hematocrit 36 % (35-47); Hemoglobin 12.6 g/dl (12.0-16.0); Lymphocyte % 31.9 % (25-47); Mean Corpuscular HGB Conc 35 g/dl (31-36); Mean Corpuscular Hemoglobin 28 pg (27-31); Mean Corpuscular Volume 82 fL (80-97); Mean Platelet Volume 7.3 um3 (7.4-10.4); Nucleated Red Blood Cells % 0.4; Platelet Count 218 10^3/ul (150-450); Red Blood Count 4.42 10^6/ul (4.00-5.40); Red Cell Distribution Width 13 % (10.5-15); White Blood Count 3.5 10^3/ul (3.5-10.8)
[2018-03-22 09:32] LABS: EGFR Non-African American 121.4 (>60)
[2018-03-22 09:33] LABS: INR 0.98 (0.77-1.02)
[2018-03-22] MEDS ORDERED: Lidocaine 2% PF * 5 ML VIAL ONE (10:20)
[2018-03-22 11:50] LABS: Body Fluid Source Cerebral Spinal
[2018-03-22] MEDS ORDERED: NS 0.9% 1000 ML* 1,000 ML IV ONE (12:06)
[2018-03-22 15:19] VITALS: BP 116/68
--- NOTE | 2018-03-22 23:44 | CONS ---
NEUROLOGY CONSULTATION NOTE: DATE OF CONSULT: 03/22/18 CONSULTING PROVIDER: Dr. Vargas. REASON FOR CONSULT: Left eye pain. CHIEF COMPLAINT: Left eye pain. HISTORY OF PRESENT ILLNESS: Maritza Coleman is a 27-year-old left-handed female , who was diagnosed with Lyme disease on 12/25/17. She recalls building a deck in the back of her house. She developed erythema migrans rash that she described a red dot that increased in size within 2 days. The patient has an 11 -month-old child and was and therefore was not started on doxycycline right away. She was started on amoxicillin for 7 days. However, on 12/25/17, the patient's grandfather . The patient went on a trip for 3-1/2 hours to watch her grandfather's . She drove back and developed significant amount of pain throughout her joints. She thought she was carrying a lot of stress due to her grandfather's , but then the night when she started developing trouble closing the hands bilaterally as well as bilateral hand paresthesias, she went to the emergency department for further evaluation. The patient was admitted to the hospital at that time and was treated with cefuroxime for 7 days as an outpatient. She had an MRI of the brain and MRI of the cervical spine that were reported to show no abnormality. I did review both studies today. She was evaluated by Dr. Brewster, who recommended an EMG/nerve conduction study. This was not done during the hospitalization as I do not find any records of such studies; however, followup as an outpatient was recommended. She was also seen by Dr. Serrano, who suggested the vision in the left eye could have been a functional problem. 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 The patient stated that she was diagnosed with Lyme meningitis and was discharged home, although she has never had a lumbar puncture done at that time. Currently, the patient complains of constant pain in the left eye. The pain is sharp, 7/10 in severity. She does have fluctuating dark vision in the left eye that last for a few seconds. She denied any headaches, although she did have nausea, vomiting x2 over the last few days. The patient was recently evaluated by Dr. Chang, who saw the patient on 03/20. There was documentation of her vision field as well as his assessment that showed that the patient had sudden-onset severe pain in the left eye x3 days. She has decreased vision at 20/150 with diffuse nonspecific visual field defect. No pupillary defect, color vision change, or optic nerve swelling apparent on exam. The patient did state that her vision apparently improved when she was discharged in December 2017, but came back last week on Sunday. She did start Plaquenil after her vision problem, not before. The patient is following up with Dr. Alfonso and her PCP. She also was recently evaluated by another primary care doctor, who recently informed her she was not fully treated for Lyme disease and was started on doxycycline, hydroxychloroquine, as well as rifampin. She is supposed to take the combination of therapy for 6 weeks. The patient did follow up with Dr. Kingsley from [place] in January, who did not recommend any further antibiotic regimen. The patient denied any headaches, slurred speech, focal weakness, or paresthesias. PAST MEDICAL HISTORY: Prothrombin gene mutation with DVTs in the left leg. The patient had a blood clot during her and was treated with Lovenox until 6 weeks . PAST SURGICAL HISTORY: D and C and 6 knee surgeries. MEDICATIONS: 1. Aspirin 81 mg daily. 2. Hydroxychloroquine 200 mg p.o. daily. 3. Doxycycline 100 mg p.o. twice daily. 4. Rifampin. ALLERGIES: BEE VENOM, DOCOSANOL, TIOCONAZOLE. FAMILY HISTORY: Father suffers from Parkinson's and neuropathy due to Agent [place]. Mother is healthy. 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 She denied any tobacco use. She uses 1 glass of wine every 2 months. The patient used to play ice hockey and lacrosse. She does not exercise lately. REVIEW OF SYSTEMS: A 14-point review of systems was obtained and otherwise negative except for what was mentioned in the HPI. PHYSICAL EXAM: Vitals: Temperature of 97.1, heart rate 82, respiratory rate of 27, blood pressure of 116/72. General: Well-nourished, well-developed female, in no acute distress. Slightly overweight. Head: Atraumatic and normocephalic. Eyes: Conjunctivae/corneas are clear. Neck is supple and symmetrical with no carotid bruits. Lungs: Clear to auscultation bilaterally. Cardiovascular: Regular rate and rhythm with normal S1, S2. Extremities: Normal range of motion with no cyanosis. Skin: No skin lesions or lacerations. Psych: Affect is broad and normal mood. Neurological Examination : Mental Status: Awake, alert, and oriented to person, place, time, and general circumstances. Speech and language including expression, naming, repetition, and comprehension were assessed and found to be normal. Cranial Nerves: Normal confrontation bilaterally. Pupils are mid range and reactive. Normal consensual response. Funduscopic examination did not reveal any disc edema. Her discs were sharp. There is normal venous pulsation. Sensation is intact on the forehead, cheeks, and jaw region bilaterally. There is no facial droop. There is normal facial symmetry. She is able to hear throughout the history process. There is symmetrical palatal elevation. Normal strength against resistance. Tongue is symmetrical and midline with no atrophy or fasciculation. Visual acuity: 20/25 on right eye and left eye is 20/100. Motor: No abnormal movements. No pronator drift. Normal bulk and tone throughout. She has got normal shoulder abduction, elbow flexion and extension , wrist flexion and extension, finger flexion and abduction, hip flexion and abduction, knee flexion and extension, ankle dorsiflexion and plantar flexion. Reflexes: Right/left, brachioradialis 2/2, biceps 2/2, triceps 2/2, patella 2/2 , ankle 2/2, plantar flexor/flexor. Sensation is intact to light touch and pinprick throughout the upper and lower extremities bilaterally. Vibratory sensation is 20 seconds on the right and 19 seconds on the left. Coordination: Normal [id number] and heel-to- dewey testing. Gait: Narrow based, normal stance, no ataxia. DIAGNOSTIC STUDIES/LAB DATA: WBC 3.5, hemoglobin 12.6, hematocrit of 36, platelet count of 218, ESR of 18. PTT 34. Sodium of 142, potassium of 3.9, chloride of 109, carbon dioxide 27, creatinine 0.59. Urinalysis shows no pyuria. Lumbar puncture was done. CSF fluid is as follows: Color is colorless , appearance is clear, wbc's of 2, total cell count of 3, lymphocytes 100, CSF glucose 69, CSF total protein 30. Open pressure of the lumbar puncture was not documented, but the patient did not report any improvement of her vision after the lumbar puncture. Imaging and other diagnostic testing: MRI of the orbits with and without contrast showed no acute abnormality involving either orbit. ASSESSMENT AND RECOMMENDATIONS: Ms. Maritza Coleman is a 27-year-old female, who developed Lyme disease in December 2017. She was treated with cefuroxime as an outpatient for 7 days. She continues to have intermittent left eye pain and vision loss that seems to have been exacerbated recently 7 days ago. I personally reviewed MRI of the brain, cervical cord, and recently the MRI of the orbits obtained here over the last 3 months. There is no evidence of intracranial disease. There is no evidence of nerve enlargement or enhancement. She has no evidence of demyelinating disease. She carries a diagnosis of Lyme meningitis, but cerebrospinal fluid analysis was not done in December to consider any meningitis at that time. Interestingly, her visual acuity is involved, but according to Dr. Zurdo Nguyen, there is no evidence of pupillary defect, color vision change, or optic nerve swelling on his examination from 03/20/18. 1. Subjective complaint of left eye pain and decrease in visual acuity - I am not finding any structural abnormality that explains her symptoms. Ophthalmological examination was recently done by Dr. Nguyen, who did not find any evidence of optic nerve swelling. Therefore, the diagnosis here could be possibly painless ocular migraines. I recommend further evaluation as an outpatient as we discussed prophylactically treating her with low-dose Topamax, which will help with weight loss as well as any episodes of migraines. I do not suspect she has pseudotumor cerebri. Unfortunately, an opening pressure was not recorded during this lumbar puncture that was done by our anesthesiologist. I have sent out the following cerebrospinal fluid analysis: IgG index, oligoclonal bands, and NMO to check for Devic's disease, although I highly doubt any of these will come back abnormal. I recommend the patient to follow up with the pot fluxer. I will also establish a followup for the patient in our clinic to check the progress. I am concerned that this may nocturnist physician to be either painless ocular migraine versus functional visual loss. We will keep in mind that the patient lost her grandfather in December and that is the same day where most of these symptoms initiated. 2. Generalized fatigue and pain in the joints - I suspect this is due to post- treatment Lyme syndrome. I informed the patient that I would not recommend further treatment from 14 days of doxycycline. Following that, we are exposing her for Clostridium difficile. I recommend she discuss this treatment with her primary care physician. She may benefit from an SSRI, but being very careful not causing any increase in weight. TIME SPENT: I spent a total of 75 minutes of which more than 50% was spent in reviewing the medical record, reviewing old records, interviewing the patient, examining the patient, counseling her being careful about chronic antibiotic therapy and CBT therapy for pain as she does not want to continue taking narcotics, and discussing the treatment plan as mentioned above. We will follow up with her in 4 weeks. [id number]/[facility] #: [id number] ELISSA
[2018-03-26 00:06] LABS: Lyme Disease Source CSF
== END 2018-03-22 15:12 | disposition home or self-care (01) ==
LOC: ED 07:08
DX: H57.12 Ocular pain, left eye (principal); Z88.8 Allergy status to other drugs, medicaments and biological substances; Z86.718 Personal history of other venous thrombosis and embolism; J45.909 Unspecified asthma, uncomplicated; R53.83 Other fatigue; Z79.899 Other long term (current) drug therapy; Z79.82 Long term (current) use of aspirin
CPT/HCPCS: 36415; 80053; 81003; 81015; 82164; 82784; 82945; 83916; 84157; 85025; 85610; 85652; 85730; 86140; 86255; 87070; 87086; 87205; 87476; 87798; 89051; 96360; 96361; 99285

== ENCOUNTER 2019-08-06 09:34 | Emergency (ER) | payer MEDICAID, OTHER ==
[2019-08-06 10:29] VITALS: BP 102/66
--- NOTE | 2019-08-06 10:33 | UC ---
FLU HPI - HPI Summary HPI Summary: 29 yo female presents with muscle cramps and widespread pain. She tells me that she has a hx of RA and sees a fraternity house cook in [facility]. She has been on Methotrexate for <1 year. She tells me that 2 days ago she developed fatigue, body aches, fever, SOB, productive cough. She tested positive for the flu. Was not placed on tamiflu. Over the last 2 days has not eaten or drank much due to symptoms. She has developed dark urine and muscle aches/pain with increasing pain in her hips and knees. She called her fraternity house cook and was advised to get IV fluids. Denies chest pain, abdominal pain, vomiting, diarrhea. - History of Current Complaint Chief Complaint: UCGeneralIllness Stated Complaint: DEHYDRATION,COUGH Time Seen by Provider: 08/06/19 10:33 Hx Obtained From: Patient Hx Last Menstrual Period: last month Onset/Duration: Sudden Onset Severity Currently: Severe Severity Initially: Severe Pain Intensity: 9 Pain Scale Used: 0-10 Numeric - Allergy/Home Medications Allergies/Adverse Reactions: Allergies Allergy/AdvReac Type Severity Reaction Status Date / Time bee venom protein (honey bee) Allergy Severe Anaphylatic Verified 08/06/19 10:29 Shock docosanol [From Abreva] Allergy Severe Swelling Verified 08/06/19 10:29 NSAIDS (Non-Steroidal Allergy Severe has a Verified 08/06/19 10:29 Anti-Inflamma clotting disorder tioconazole Allergy Severe Swelling Verified 08/06/19 10:29 [From Monistat 1 (tioconazole)] BEE VENOM WASP Allergy Severe Anaphylatic Uncoded 08/06/19 10:29 Shock Home Medications: Home Medications Acetaminophen [Pain Relief] 1,000 mg PO Q6HR PRN 08/06/19 [History Confirmed ] Methotrexate TAB* 3 tab PO WEEKLY 08/06/19 [History Confirmed 08/06/19] PMH/Surg Hx/FS Hx/Imm Hx - Additional Past Medical History Additional PMH: RA Other History Of: Anticoagulant Therapy - not currently 12/2017 Negative For: HIV, Hepatitis B, Hepatitis C - Surgical History Surgical History: Yes Surgery Procedure, Year, and Place: LEFT KNEE arthroscopic surgery; torn ACL repair- LEFT x6. D & C - Family History Known Family History: Positive: Cardiac Disease, Hypertension, Other - father with exposure to Agent [place] and neurologic deficits Family History: breast CA - Social History Lives: With Family Alcohol Use: Occasionally Substance Use Type: None Smoking Status (MU): Never Smoked Tobacco Have You Smoked in the Last Year: No - Immunization History Most Recent Influenza Vaccination: 2017 Most Recent Pneumonia Vaccination: Never Review of Systems All Other Systems Reviewed And Are Negative: No Constitutional: Positive: Fever, Fatigue, Other - Body aches Skin: Positive: Negative Eyes: Positive: Negative ENT: Positive: Negative Respiratory: Positive: Shortness Of Breath, Cough Cardiovascular: Positive: Negative Gastrointestinal: Positive: Negative Motor: Positive: Negative Neurovascular: Positive: Negative Musculoskeletal: Positive: Arthralgia Neurological/Mental Status: Positive: Headache Psychological: Positive: Negative Physical Exam - Summary Physical Exam Summary: GENERAL: NAD. WDWN. No pain distress. SKIN: No rashes, sores, lesions, or open wounds. HEENT: Head: AT/NC Eyes: EOM intact. Conjunctiva clear without inflammation or discharge. Ears: Hearing grossly normal. TMs intact, no bulging, erythema, or edema. Nose: Nasal mucosa pink and moist. NTTP maxillary and frontal sinus. Throat: Posterior oropharynx without exudates, erythema, or tonsillar enlargement. Uvula midline. NECK: Supple. Nontender. No lymphadenopathy. CHEST: CTAB. No r/r/w. No accessory muscle use. Breathing comfortably and in no distress. CV: RRR. Pulses intact. Cap refill <2seconds NEURO: Alert. PSYCH: Age appropriate behavior. Triage Information Reviewed: Yes Vital Signs: Initial Vital Signs Temp 99.9 F 08/06/19 10:25 Pulse 103 08/06/19 10:25 Resp 18 08/06/19 10:25 BP 102/66 08/06/19 10:25 Pulse Ox 97 08/06/19 10:25 EPINEPHrine SYR 0.1MG/ML* [EPINEPHphrine SYR 0.1MG/ML*] 0.1 mg IM ONCE PRN 12/31 [History Confirmed 08/06/19] Acetaminophen [Pain Relief] 1,000 mg PO Q6HR PRN 08/06/19 [History Confirmed ] Methotrexate TAB* 3 tab PO WEEKLY 08/06/19 [History Confirmed 08/06/19] Vital Signs Reviewed: Yes Flu Course/Dx - Course Course Of Treatment: Exam unremarkable. Given her immunosuppression, I am most concerned for electrolyte abnormality, secondary infection such as PNA, or rhabdo. I recommended pt be further evaluated in the ED. She was agreeable to this and mother with her will drive her now. - Differential Dx/Diagnosis Provider Diagnosis: Influenza, Muscle pain Discharge ED - Sign-Out/Discharge Documenting (check all that apply): Patient Departure All imaging exams completed and their final reports reviewed: No Studies - Discharge Plan Condition: Stable Disposition: HOME-RECOMMEND TO ED Referrals: Iris Adames NP [Primary Care Provider] - Additional Instructions: I recommend that you go to the ER for further evaluation of your muscle pain and dehydration - Billing Disposition and Condition Condition: STABLE Disposition: Home-Recommend to ED - Attestation Statements Provider Attestation: I was available for consult. This patient was seen by the MARIA DE JESUS. The patient was not presented to, seen by, or examined by me. -Maribeth
== END 2019-08-06 10:53 | disposition home health service (06) ==
LOC: UCEAST 09:34
DX: J11.1 Influenza due to unidentified influenza virus with other respiratory manifestations (principal); M79.10 Myalgia, unspecified site; M06.9 Rheumatoid arthritis, unspecified; Z91.030 Bee allergy status; Z88.6 Allergy status to analgesic agent; Z88.8 Allergy status to other drugs, medicaments and biological substances
CPT/HCPCS: 99212; G0463

== ENCOUNTER 2019-08-06 11:07 | Emergency (ER) | payer OTHER ==
[2019-08-06] MEDS ORDERED: NS 0.9% 1000 ML** 1,000 ML IV ONE (12:31)
[2019-08-06 13:06] LABS: ABS Lymphocytes 1.1 10^3/ul (1.0-4.8); ABS Monocytes 0.7 10^3/ul (0-0.8); ABS Neutrophils 2.8 10^3/ul (1.5-7.7); Hematocrit 40 % (35-47); Lymphocyte % 24.3 %; Mean Corpuscular HGB Conc 35 g/dL (31-36); Mean Corpuscular Hemoglobin 29 pg (27-31); Mean Corpuscular Volume 85 fL (80-97); Mean Platelet Volume 7.6 fL (7.4-10.4); Nucleated Red Blood Cells % 0.1; Platelet Count 243 10^3/uL (150-450); Red Blood Count 4.75 10^6 /uL (3.70-4.87); Red Cell Distribution Width 13 % (10-15); White Blood Count 4.7 10^3/uL (3.5-10.8)
[2019-08-06 13:20] LABS: ALT 16 U/L (7-52); AST 20 U/L (13-39); Albumin 4.7 g/dL (3.2-5.2); Albumin/Globulin Ratio 1.7 (1-3); Alkaline Phosphatase 53 U/L (34-104); Anion Gap 9 mmol/L (2-11); BUN/Creatinine Ratio 11.1 (8-20); Blood Urea Nitrogen 9 mg/dL (6-24); CO2 Carbon Dioxide 24 mmol/L (22-32); Calcium 9.1 mg/dL (8.6-10.3); Chloride 100 mmol/L (101-111); Creatine Kinase 66 U/L (10-223); EGFR African American 100.5 (>60); Globulin 2.8 g/dL (2-4); Glucose 82 mg/dL (70-100); Potassium 3.3 mmol/L (3.5-5.0); Sodium 133 mmol/L (135-145); Total Protein 7.5 g/dL (6.4-8.9)
[2019-08-06] MEDS ORDERED: Acetaminophen TAB* 325 MG PO ONE (14:20)
[2019-08-06] MEDS ORDERED: Morphine 4 MG/ML VIAL (1 ml) 4 MG/ML VIAL IV ONE (14:20)
--- NOTE | 2019-08-06 14:22 | ED ---
Back Pain - HPI Summary HPI Summary: 29 year old F presenting to [facility] with a chief complaint of back pain radiating to her legs and hips since 5 days ago. The patient was diagnosed with influenza yesterday morning and reports vomiting secondary to a cough, a fever of 100.1 F degrees, and body aches. The patient rates the pain 9/10 in severity. Symptoms aggravated by nothing. Symptoms alleviated by nothing. She states that she took 1,000 mg of Tylenol at 08:30 this morning. The patient contacted her physician in [facility] and was advised to have IV fluids administered. She was seen at urgent care prior to arrival and was advised to come to the emergency department. She has a history of fibromyalgia and a blood clotting gene mutation. She admits to drinking alcohol approximately once per month. She denies smoking. Home medications and allergies are reviewed. Home Medications Medication Instructions Recorded Confirmed Type EPINEPHrine SYR 0.1MG/ML* 0.1 mg IM ONCE PRN 12/31/17 08/06/19 History [EPINEPHphrine SYR 0.1MG/ML*] Acetaminophen [Pain Relief] 1,000 mg PO Q6HR PRN 08/06/19 08/06/19 History Methotrexate TAB* 3 tab PO WEEKLY 08/06/19 08/06/19 History - History of Current Complaint Chief Complaint: EDFluSymptoms Stated Complaint: FLU+/DIFF BREATHING PER PT Time Seen by Provider: 08/06/19 14:01 Hx Obtained From: Patient Onset/Duration: Lasting Days, Still Present Onset/Duration: Started Days Ago, Still Present Timing: Constant Back Pain Location: Is Discrete @ - back, Radiates To - legs, hips Severity Initially: Severe Severity Currently: Severe Pain Intensity: 9 Pain Scale Used: 0-10 Numeric Alleviating Symptom(s): Nothing Associated Signs And Symptoms: Positive: Fever, Other - Cough, vomiting, body aches - Allergies/Home Medications Allergies/Adverse Reactions: Allergies Allergy/AdvReac Type Severity Reaction Status Date / Time bee venom protein (honey bee) Allergy Severe Anaphylatic Verified 08/06/19 11:20 Shock docosanol [From Abreva] Allergy Severe Swelling Verified 08/06/19 11:20 NSAIDS (Non-Steroidal Allergy Severe has a Verified 08/06/19 11:20 Anti-Inflamma clotting disorder tioconazole Allergy Severe Swelling Verified 08/06/19 11:20 [From Monistat 1 (tioconazole)] BEE VENOM WASP Allergy Severe Anaphylatic Uncoded 08/06/19 11:20 Shock Home Medications: Home Medications EPINEPHrine SYR 0.1MG/ML* [EPINEPHphrine SYR 0.1MG/ML*] 0.1 mg IM ONCE PRN 12/31 [History Confirmed 08/06/19] Benzonatate CAP* [Tessalon 100 MG CAP*] 100 mg PO TID #20 cap 08/06/19 [Rx] Cyanocobalamin TAB* [Vitamin B12 TAB*] 500 mcg PO DAILY 08/06/19 [History Confirmed 08/06/19] Folic Acid TAB* [Folvite TAB*] 1 mg PO DAILY 08/06/19 [History Confirmed ] Methotrexate TAB* 3 tab PO WEEKLY 08/06/19 [History Confirmed 08/06/19] traMADol TAB* [Ultram*] 50 mg PO Q12H PRN #12 tab MDD 2 tablets 08/06/19 [Rx] PMH/Surg Hx/FS Hx/Imm Hx Endocrine/Hematology History: Reports: Hx Anticoagulant Therapy - not currently 12/2017, Hx Blood Disorders - Genetic Denies: Hx Diabetes, Hx Thyroid Disease Cardiovascular History: 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, Other Cardiovascular Problems/Disorders - Prothrombin Mutation Denies: Hx Congestive Heart Failure, Hx Hypertension, Hx Myocardial Infarction, Hx Pacemaker/ICD Respiratory History: Reports: Hx Asthma - exercise induced Denies: Hx Chronic Obstructive Pulmonary Disease (COPD), Hx Lung Cancer, Hx Pneumonia, Hx Pulmonary Embolism GI History: Denies: Hx Gall Bladder Disease, Hx Gastrointestinal Bleed, Hx Ulcer, Hx Urosepsis History: Denies: Hx Kidney Stones, Hx Renal Disease Musculoskeletal History: Reports: Hx Arthritis - left knee, Hx Orthopedic Injury Sensory History: Reports: Hx Contacts or Glasses - both- day of surgery will use glasses Denies: Hx Deafness, Hx Hearing Aid, Other Sensory Impairments Opthamlomology History: Reports: Hx Contacts or Glasses - both- day of surgery will use glasses Denies: Other Sensory Impairments Neurological History: Reports: Other Neuro Impairments/Disorders - 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 D & C Hx Anesthesia Reactions: No Infectious Disease History: No Infectious Disease History: Denies: Hx Hepatitis, Hx Human Immunodeficiency Virus (HIV), Traveled Outside the [place] in Last 30 Days - Family History Known Family History: Positive: Cardiac Disease, Hypertension, Other - father with exposure to Agent [place] and neurologic deficits Family History: breast CA - Social History Alcohol Use: Occasionally Substance Use Type: Reports: None Smoking Status (MU): Never Smoked Tobacco Have You Smoked in the Last Year: No Review of Systems Positive: Fever Positive: Cough Positive: Vomiting Positive: Myalgia, Other - Back pain All Other Systems Reviewed And Are Negative: Yes Physical Exam - Summary Physical Exam Summary: Constitutional: Well-developed, Well-nourished, Alert. (-) Distressed Skin: Warm, Dry; no rash HENT: Normocephalic; Atraumatic Eyes: Conjunctiva normal Neck: Musculoskeletal ROM normal neck. (-) JVD, (-) Stridor, (-) Tracheal deviation Cardio: Rhythm regular, heart rate of 105 in the room, Heart sounds normal; Intact distal pulses; Radial pulses are 2+ and symmetric. (-) Murmur Pulmonary/Chest wall: Effort normal. (-) Respiratory distress, (-) Wheezes, (-) Rales Abd: Soft, (-) tenderness, (-) Distension, (-) Guarding, (-) Rebound Musculoskeletal: (-) Edema; tenderness on the mid-back over the bra line Lymph: (-) Cervical adenopathy Neuro: Alert, Oriented x3 Psych: Mood and affect Normal Triage Information Reviewed: Yes Vital Signs On Initial Exam: Initial Vitals Temp Pulse Resp BP Pulse Ox 98.9 F 111 20 116/78 96 08/06/19 11:16 08/06/19 11:16 08/06/19 11:16 08/06/19 11:16 08/06/19 11:16 Vital Signs Reviewed: Yes Procedures - Sedation Patient Received Moderate/Deep Sedation with Procedure: No Diagnostics - Vital Signs Vital Signs Temp Pulse Resp BP Pulse Ox 08/06/19 14:01 98 96 08/06/19 12:57 99.0 F 107 20 109/73 95 08/06/19 11:16 98.9 F 111 20 116/78 96 - Laboratory Lab Results: Lab Results 08/06/19 08/06/19 Range/Units 12:52 12:52 WBC 4.7 (3.5-10.8) 10^3/uL RBC 4.75 (3.70-4.87) 10^6 /uL Hgb 14.0 (12.0-16.0) g/dL Hct 40 (35-47) % MCV 85 (80-97) fL MCH 29 (27-31) pg MCHC 35 (31-36) g/dL RDW 13 (10-15) % Plt Count 243 (150-450) 10^3/uL MPV 7.6 (7.4-10.4) fL Neut % (Auto) 60.1 % Lymph % (Auto) 24.3 % [place] % (Auto) 15.2 % Eos % (Auto) 0.0 % Baso % (Auto) 0.4 % Absolute Neuts (auto) 2.8 (1.5-7.7) 10^3/ul Absolute Lymphs (auto) 1.1 (1.0-4.8) 10^3/ul Absolute Monos (auto) 0.7 (0-0.8) 10^3/ul Absolute Eos (auto) 0.0 (0-0.6) 10^3/ul Absolute Basos (auto) 0.0 (0-0.2) 10^3/ul Absolute Nucleated RBC 0.0 10^3/ul Nucleated RBC % 0.1 Sodium 133 L (135-145) mmol/L Potassium 3.3 L (3.5-5.0) mmol/L Chloride 100 L (101-111) mmol/L Carbon Dioxide 24 (22-32) mmol/L Anion Gap 9 (2-11) mmol/L BUN 9 (6-24) mg/dL Creatinine 0.81 (0.51-0.95) mg/dL Est GFR ( Amer) 100.5 (>60) Est GFR (Non-Af Amer) 83.0 (>60) BUN/Creatinine Ratio 11.1 (8-20) Glucose 82 (70-100) mg/dL Calcium 9.1 (8.6-10.3) mg/dL Total Bilirubin 0.80 (0.2-1.0) mg/dL AST 20 (13-39) U/L ALT 16 (7-52) U/L Alkaline Phosphatase 53 (34-104) U/L Total Creatine Kinase 66 (10-223) U/L Total Protein 7.5 (6.4-8.9) g/dL Albumin 4.7 (3.2-5.2) g/dL Globulin 2.8 (2-4) g/dL Albumin/Globulin Ratio 1.7 (1-3) Result Diagrams: 08/06/19 12:52 08/06/19 12:52 Lab Statement: Any lab studies that have been ordered have been reviewed, and results considered in the medical decision making process. - Radiology Chest x-ray Radiology Interpretation Completed By: Radiologist Summary of Radiographic Findings: No acute cardiopulmonary process by radiograph. ED physician has reviewed this report. Back Pain Course/Dx - Course Course Of Treatment: Patient is here with body aches. Patient was diagnosed with influenza yesterday. Patient is not on Tamiflu as she was out of the treatment window. Patient did have tenderness in her back with no overlying rash. Patient had blood work performed grossly unremarkable. Patient is given Tylenol for fever and IV fluids for dehydration. Patient was given morphine with last improvement in her pain. Patient is discharged with Tessalon Perles and tramadol - Diagnoses Provider Diagnoses: Flu, Cough, Body aches Discharge ED - Sign-Out/Discharge Documenting (check all that apply): Patient Departure - Discharge Plan Condition: Stable Disposition: HOME Prescriptions: Benzonatate CAP* [Tessalon 100 MG CAP*] 100 mg PO TID #20 cap traMADol TAB* [Ultram*] 50 mg PO Q12H PRN #12 tab MDD 2 tablets PRN Reason: Pain - Severe Patient Education Materials: Influenza (ED), Acute Cough (ED) Referrals: Iris Adames NP [Primary Care Provider] - 3 Days Additional Instructions: Follow-up with your primary care physician in 1-3 days. Continue taking Tylenol for your fever. If Tylenol does not resolve your symptoms, take your pain medications as prescribed. Return to the emergency department for increased difficulty breathing, worsening cough, or other concerning symptoms. - Billing Disposition and Condition Condition: STABLE Disposition: Home - Attestation Statements Document Initiated by Scribe: Yes Documenting Scribe: Poly Mcclellan Provider For Whom Scribe is Documenting (Include Credential): Saad Seymour MD Scribe Attestation: I, Poly Mcclellan, scribed for Saad Seymour MD on at [id number]. Scribe Documentation Reviewed: Yes Provider Attestation: The documentation as recorded by the dinoraibalmas, Poly Mcclellan accurately reflects the service I personally performed and the decisions made by me, Saad Seymour MD Status of Scribe Document: Viewed
[2019-08-06 14:49] LABS: HCG Pregnancy < 0.60 mIU/mL
[2019-08-06 15:27] VITALS: BP 112/70
== END 2019-08-06 15:26 | disposition home or self-care (01) ==
LOC: ED 11:07
DX: J11.1 Influenza due to unidentified influenza virus with other respiratory manifestations (principal); M79.7 Fibromyalgia; D68.52 Prothrombin gene mutation; F41.9 Anxiety disorder, unspecified; J45.909 Unspecified asthma, uncomplicated; Z86.718 Personal history of other venous thrombosis and embolism; Z79.899 Other long term (current) drug therapy; Z88.8 Allergy status to other drugs, medicaments and biological substances
CPT/HCPCS: 36415; 71046; 80053; 82550; 84702; 85025; 96361; 96374; 99283; A9270-GY; J2270